=== PATIENT | male | born 1940 | race Caucasian/White ===

== ENCOUNTER 2016-12-11 13:14 | Inpatient (IN) | payer MEDICAID, OTHER ==
[~2016-12-11] VITALS: Ht 172.7 cm; Wt 106.1 kg
--- NOTE | 2016-12-11 13:32 | NUR ---
PT BIB PA FOR ALOC. PER EMS, PT USUALLY FIGHTS WITH STAFF AND PULLS AWAY WHEN ATTMETPING CARE; TODAY PT DID NOT FIGHT. UPON EXAM, LIMBS WERE FLACCID AND PT DID NOT RESPOND TO VERBAL OR TOUCH STIMULUS. RESP EVEN UNLABORED ON VENT. VSS. SKIN WARM NONDIAPHORETIC. GENERALIZED EDEMA. SUBCLAVIAN CATH PRESENT. IN ER BED 09 ON MONITOR.
--- NOTE | 2016-12-11 13:34 | NUR ---
RT AT BEDSIDE. WHILE PERFORMING ORAL SUCTIONING, PT RAISED HANDS TO BAT AWAY THE YANKAUR AND WAS TURNING HEAD AWAY.
[2016-12-11 13:41] VITALS: BP 120/57
--- NOTE | 2016-12-11 13:48 | NUR ---
PT RECEIVED AND PLACED INTO [facility] VENT VIA TRACH SIZE 8 PORTEX WITH CUFFED INFLATED. VENT PARAMETERS BELOW SET PER RT TRANSPORTER: AC10 VT 500 FIO2 40% PEEP +5 B/S COURSE RHONCHI BILATERAL, SXN MOD AMNT PALE YELLOW SEMI THICK SECRETIONS. GARRETT @ BEDSIDE. Addendum: 12/11/16 at 1352 by HENRY ESCOBAR RT Amended: Links added.
[2016-12-11] MEDS ORDERED: ONDA4TAB5 GT (13:54)
[2016-12-11] MEDS ORDERED: FLUD0.1T3 GT (13:54)
[2016-12-11] MEDS ORDERED: NUTR100037 GT (13:54)
[2016-12-11] MEDS ORDERED: FOLI1TAB16 GT (13:54)
[2016-12-11] MEDS ORDERED: LEVO100T9 GT (13:54)
[2016-12-11] MEDS ORDERED: BISA10SU8 RC (13:54)
[2016-12-11] MEDS ORDERED: INSU100I19 SQ (13:54)
[2016-12-11] MEDS ORDERED: OMEP40CA37 GT (13:54)
[2016-12-11] MEDS ORDERED: ERGO50003 GT (13:54)
[2016-12-11] MEDS ORDERED: MIDO10TA GT (13:54)
[2016-12-11] MEDS ORDERED: FOLI0.8T2 GT (13:54)
[2016-12-11] MEDS ORDERED: PRED20TA GT (13:54)
[2016-12-11] MEDS ORDERED: BLOO-668 IN (13:54)
[2016-12-11] MEDS ORDERED: BETA1TAB4 GT (13:54)
[2016-12-11] MEDS ORDERED: FERR300L GT (13:54)
[2016-12-11] MEDS ORDERED: ACET650S26 GT (13:54)
[2016-12-11] MEDS ORDERED: TRAM50TA2 GT (13:54)
[2016-12-11] MEDS ORDERED: INSU100V27 SQ (13:54)
[2016-12-11] MEDS ORDERED: DARB25DI SQ (13:54)
[2016-12-11] MEDS ORDERED: CYAN500T4 GT (13:54)
[2016-12-11] MEDS ORDERED: SIME80TA15 GT (13:54)
[2016-12-11] MEDS ORDERED: HEPA10009 SQ (13:54)
[2016-12-11 14:03] LABS: BASOPHILS # (AUTO) 0.1 /CMM (0.0-0.2); BASOPHILS % (AUTO) 0.6 % (0.0-2.0); EOSINOPHILS % (AUTO) 0.2 % (0.0-6.0); HEMATOCRIT 30 % (39-51); LYMPHOCYTES # (AUTO) 0.5 /CMM (0.8-4.8); LYMPHOCYTES % (AUTO) 3.2 % (20.0-44.0); MEAN CORPUSCULAR HEMOGLOBIN 36 PG (26.0-33.0); MEAN CORPUSCULAR HGB CONC 34 g/dl (31.0-36.0); MEAN CORPUSCULAR VOLUME 107 fL (80-96); MONOCYTES # (AUTO) 0.3 /CMM (0.1-1.30); MONOCYTES % (AUTO) 2.3 % (2.0-12.0); NEUTROPHILS # (AUTO) 13.9 /CMM (1.8-8.9); NEUTROPHILS % (AUTO) 93.7 % (43.0-81.0); PLATELET COUNT (AUTO) 228 /CMM (150-450); RDW COEFFICIENT OF VARIATION 13.6 (11.5-15.0); RED BLOOD CELL COUNT(AUTO) 2.75 MIL/uL (4.5-6.0); WHITE BLOOD COUNT (AUTO) 14.8 K/uL (4.3-11.0)
--- NOTE | 2016-12-11 14:03 | NUR ---
INCREASED FI02 FROM 30% TO 40% FOR LOW O2 SAT OF 89%. SAT WNL NOW.
--- NOTE | 2016-12-11 14:06 | NUR ---
PT TRANSPORTED TO CT IN STABLE CONDITION WITH RT AT BEDSIDE.
--- NOTE | 2016-12-11 14:20 | NUR ---
PT ANURIC; DIAPER DRY. NOTIFIED.
[2016-12-11 14:27] LABS: ALANINE AMINOTRANSFERASE 55 U/L (12-78); ALBUMIN 2.1 g/dL (3.4-5.0); ALKALINE PHOSPHATASE 298 U/L (46-116); ASPARTATE AMINOTRANSFERASE 32 U/L (15-37); BILIRUBIN,DIRECT 0.5 mg/dL (0.0-0.2); BILIRUBIN,TOTAL 0.7 mg/dL (0.2-1.0); CARBON DIOXIDE 32 mmol/L (21-32); CHLORIDE 98 mmol/L (98-107); CREATININE 3.3 mg/dL (0.6-1.3); GLUCOSE 207 mg/dL (74-106); SODIUM SERUM 136 mmol/L (136-145)
[2016-12-11 14:30] LABS: CALCIUM, SERUM 14.7 mg/dL (8.5-10.1); UREA NITROGEN, BLOOD 83 mg/dL (7-18)
[2016-12-11 14:31] LABS: INR 0.91 (0.87-1.13); PROTHROMBIN TIME 9.7 SECS (9.5-12.7)
--- NOTE | 2016-12-11 14:47 | NUR ---
PAGED DR LEOLA NOLASCO
[2016-12-11 14:50] LABS: LACTIC ACID 2.1 mmol/L (0.4-2.0)
[2016-12-11 14:59] VITALS: BP 105/64
[2016-12-11] MEDS ORDERED: CEFEPIME 1 GM in IV D5W 50 ML IV ONE (15:00)
[2016-12-11] MEDS ORDERED: VANCOMYCIN 1 GM in IV D5W 250 ML IV ONE (15:00)
[2016-12-11 15:12] LABS: BAND % (MANUAL) 47 % (0.0-5.0); LYMPHOCYTES % (MANUAL) 7 % (16-48); MONOCYTES % (MANUAL) 2 % (0-11.0); NEUTROPHILS % (MANUAL) 44 (42-76)
[2016-12-11] MEDS ORDERED: IV SET PRIMARY PUMP SET 1 EA INFUS.SET MC ONE (15:12)
--- NOTE | 2016-12-11 16:15 | NUR ---
REPORT GIVEN TO SPEEDY HARRELL FOR ADMISSION. ROOM IS STILL BEING CLEANED; 10-15 MORE MINUTES.
--- NOTE | 2016-12-11 16:29 | NUR ---
PT RESTING QUIETLY AT BASELINE, NAD NOTED. READY FOR TRANSFER TO 3RD FLOOR ONCE ROOM IS CLEAN.
--- NOTE | 2016-12-11 16:55 | NUR ---
PT TRANSPORTED TO RM 318 IN STABLE CONDITION VIA ACLS PROTOCOL WITH RT.
--- NOTE | 2016-12-11 17:15 | NUR ---
PT. TRANSFERRED FROM ER#9 TO 318. PT USED SAME MECH VENT WITH SAME VENTILATOR SETTINGS. MECH VENT PLUGGED INTO RED OUTTLET WITH ALARM ON AND AUDIBLE. GARRETT @ BEDSIDE. Addendum: 12/11/16 at 1717 by HENRY ESCOBAR RT Amended: Links added.
[2016-12-11 17:30] VITALS: BP 115/82
--- NOTE | 2016-12-11 17:30 | NUR ---
THREAT MONITORING ANALYST INITIAL NOTE REPORT RECEIVED. PATIENT IN ROOM. VENT SETTINGS CHECKED AND VERIFIED WITH RT. VITAL SIGNS CHECKED AND RECORDED. PATIENT DOES NOT APPEAR TO BE IN PAIN, CALM, NO FACIAL GRIMACE. WILL CHECK SKIN. WRITTEN ORDERS FROM [facility] AND MEDICATIONS FAXED TO PHARMACY. BED IN LOW POSITION, WILL CONTINUE TO MONITOR.
--- NOTE | 2016-12-11 18:20 | NUR ---
TELETYPE OPERATOR NOTE SCOTT FROM PHARMACY CONFIRMED THAT THE MEDICATION ORDERS FOR THE PATIENT WERE RECEIVED.
--- NOTE | 2016-12-11 19:25 | NUR ---
BOARD FINISHER CLOSING NOTE NO SIGNIFICANT CHANGE IN PATIENT CONDITION THROUGHOUT THE SHIFT. VENT SETTINGS VERIFIED. WILL ENDORSE FOR CHANTEL.
--- NOTE | 2016-12-11 19:46 | NUR ---
PT STARTED ON HEMODIALYSIS
[2016-12-11] MEDS ORDERED: FEE PK DOSING 1 MIN EA MC ONE (19:54)
[2016-12-11] MEDS ORDERED: ONDANSETRON 4 MG TAB.RAPDIS GT PRN (20:30)
[2016-12-11] MEDS ORDERED: SIMETHICONE 80 MG TAB.CHEW GT PRN (20:30)
[2016-12-11] MEDS ORDERED: BISACODYL SUPP (10 MG) 10 MG/SUPP.RECT SUPP.RECT RC PRN (20:30)
[2016-12-11] MEDS ORDERED: MIDODRINE HCL (5MG) 5 MG TABLET GT PRN (20:30)
[2016-12-11] MEDS ORDERED: ACETAMINOPHEN 650 MG/20.3 ML UDC GT PRN (20:30)
[2016-12-11] MEDS ORDERED: TRAMADOL HCL 50 MG TABLET GT PRN (20:30)
[2016-12-11 20:52] VITALS: BP_SYST 117; BP_SYST 131; BP_DIAS 74; BP_DIAS 90
[2016-12-11] MEDS: FERROUS SULFATE UDC 300 MG/5 ML UDC GT SCH (22:27)
[2016-12-11] MEDS: PANTOPRAZOLE 40 MG TABLET.DR PO SCH (22:27)
[2016-12-11] MEDS: PIPERACILLIN /TAZOBACTAM 2.25 G in IV D5W 50 ML IV SCH (22:27)
[2016-12-11] MEDS: HEPARIN SODIUM, PORCINE 5000 UNITS/1 ML VIAL SQ SCH (22:37)
[2016-12-11] MEDS: INSULIN DETEMIR 100 UNIT/ML CARTRIDGE SQ SCH (22:37)
[2016-12-11] MEDS ORDERED: SECONDARY IV SET 1 EA INFUS.SET MC ONE (22:52)
[2016-12-11] MEDS ORDERED: IV NS 0.9% 250 ML IV ONE (22:52)
[2016-12-11] MEDS: RENAL NOVASOURCE 1,000 ML BOTTLE GT PRN (23:25)
[2016-12-11] MEDS: Z GUARD REMEDY 2 OZ OINT TP PRN (23:25)
[2016-12-12] VITALS (7 sets, daily range): BP systolic 105–129; BP diastolic 64–76
[2016-12-12] MEDS: INSULIN ASPART NOVOLOG 100 UNIT/ML CARTRIDGE SQ PRN ×4 (01:28→17:52)
[2016-12-12] MEDS: PIPERACILLIN /TAZOBACTAM 2.25 G in IV D5W 50 ML IV SCH ×2 (06:16→12:21)
[2016-12-12] MEDS: FERROUS SULFATE UDC 300 MG/5 ML UDC GT SCH ×3 (06:18→22:15)
[2016-12-12] MEDS: LEVOTHYROXINE SODIUM 100 MCG TABLET GT SCH (06:18)
[2016-12-12] MEDS: BLOOD SUGAR DIAGNOSTIC 1 EACH STRIP IN SCH ×4 (06:29→17:53)
--- NOTE | 2016-12-12 06:58 | NUR ---
pt had hemodialysis last night took 1.7 liters off, pt non verbal, on trache on vent,opens eyes only.generalized edema to all extremeties, anuric and no bm overnight,reposition for comfort, 94-98% suctioned frequently, phlegm very thick and yellowgreen,suctioned orally too, pt able to move both arms when suctioning.otherwise generally weak. on gt feeding tolerating well with no residual, on iv antibiotics.vss,afebrile ,kept clean and dry.sinus with 1st degree block on monitor.
--- NOTE | 2016-12-12 07:30 | NUR ---
BACK STRIP MACHINE OPERATOR NOTE RECEIVED PATIENT ON BED NON VERBAL, HE OPEN HIS EYES ONLY AND TO PAINFUL STIMULI. ON VENT, TRACH IN PLACED. VITAL SIGNS CHECKED AND RECORDED. PATIENT DOES NOT APPEAR TO BE IN PAIN, CALM, NO FACIAL GRIMACE. NO S/S OF ANY RESPIRATORY DISTRESS AT THIS TIME. CALL LIGHT WITHIN REACH, WILL CONTINUE TO MONITOR.
[2016-12-12 07:59] LABS: BASOPHILS % (AUTO) 0.1 % (0.0-2.0); EOSINOPHILS % (AUTO) 0.2 % (0.0-6.0); HEMATOCRIT 26 % (39-51); HEMOGLOBIN 8.9 g/dL (13.5-17.5); LYMPHOCYTES # (AUTO) 0.6 /CMM (0.8-4.8); LYMPHOCYTES % (AUTO) 4.6 % (20.0-44.0); MEAN CORPUSCULAR HEMOGLOBIN 36 PG (26.0-33.0); MEAN CORPUSCULAR HGB CONC 34 g/dl (31.0-36.0); MEAN CORPUSCULAR VOLUME 107 fL (80-96); MONOCYTES # (AUTO) 0.4 /CMM (0.1-1.30); MONOCYTES % (AUTO) 3.2 % (2.0-12.0); NEUTROPHILS % (AUTO) 91.9 % (43.0-81.0); PLATELET COUNT (AUTO) 229 /CMM (150-450); RDW COEFFICIENT OF VARIATION 14.9 (11.5-15.0); RED BLOOD CELL COUNT(AUTO) 2.46 MIL/uL (4.5-6.0)
[2016-12-12 08:09] LABS: CREATININE 2.8 mg/dL (0.6-1.3); POTASSIUM 4.3 mmol/L (3.5-5.1)
[2016-12-12] MEDS: VIT B CMPLX 3/FA/VIT C/BIOTIN 1 TAB TABLET GT SCH (08:44)
[2016-12-12] MEDS: CYANOCOBALAMIN 500 MCG TABLET GT SCH (08:44)
[2016-12-12] MEDS: FOLIC ACID 1 MG TABLET GT SCH (08:44)
[2016-12-12] MEDS: FLUDROCORTISONE 0.1 MG TABLET GT SCH (08:44)
[2016-12-12] MEDS: PANTOPRAZOLE 40 MG TABLET.DR PO SCH ×2 (08:44→21:00)
[2016-12-12] MEDS: predniSONE 20 MG TABLET GT SCH (08:44)
[2016-12-12] MEDS: MULTIVITAMINS W-MINERALS 1 TAB TABLET GT SCH (08:44)
--- NOTE | 2016-12-12 08:45 | NUR ---
BEHAVIORAL SCIENCE CHAIR NOTES PATIENT STARTED ON HD AT BEDSIDE. VS BP 104/60, IL 88, RR, 22. BLACKTOP SPREADER AT BEDSIDE. WILL CONTINUE TO MONITOR.
[2016-12-12] MEDS: HEPARIN SODIUM, PORCINE 5000 UNITS/1 ML VIAL SQ SCH ×2 (08:49→22:16)
[2016-12-12] MEDS: INSULIN DETEMIR 100 UNIT/ML CARTRIDGE SQ SCH ×2 (08:58→22:18)
[2016-12-12] MEDS ORDERED: ERGOCALCIFEROL (VITAMIN D 2) 50,000 UNIT CAPSULE GT SCH (09:00)
[2016-12-12 09:38] LABS: ANISOCYTOSIS 1+; BAND % (MANUAL) 7 % (0.0-5.0); LYMPHOCYTES % (MANUAL) 6 % (16-48); METAMYELOCYTES % 2 % (0-0); MONOCYTES % (MANUAL) 3 % (0-11.0); NEUTROPHILS % (MANUAL) 82 (42-76); PLATELET ESTIMATE ADEQUATE
--- NOTE | 2016-12-12 11:30 | NUR ---
RN CAMP NOTES HEMODIALYSIS FINISHED VS BP 99/62, ID 96, RR 23, TEMP 98. OUTPUT 1.8L.
[2016-12-12] MEDS ORDERED: IPRATROPIUM NEB FS 0.5 MG/2.5 ML AMPUL.NEB NEB PRN (12:00)
[2016-12-12] MEDS ORDERED: ALBUTEROL FS 2.5 MG/3 ML VIAL.NEB NEB PRN (13:30)
[2016-12-12] MEDS ORDERED: ALBUTEROL FS 2.5 MG/3 ML VIAL.NEB NEB SCH (13:30)
[2016-12-12 14:25] LABS: ABG BASE EXCESS 2.1 mmol/L; ABG OXYGEN SATURATION 91.8 % (92.0-98.5); ABG PH 7.454 (7.350-7.450); ABG PO2 64.3 mmHg (75.0-100.0); ABG TOTAL HEMOGLOBIN 9.7 G/dL (13.5-18.0); AaDO2 177.2 mmHg; COHb 1.1 % (0.5-1.5); MetHb 0.8 % (0.0-1.5); O2Hb 90.1 % (94.0-97.0); PEEP,BG 5 cm H2O; SITE, ABG Right Brachial; VT, ABG 500 mL
[2016-12-12] MEDS ORDERED: FEE PK DOSING 1 MIN EA MC ONE (16:00)
[2016-12-12] MEDS ORDERED: Medication Not On Formulary EA (Omeprazole 40 MG) GT SCH (16:30)
[2016-12-12] MEDS: Z GUARD REMEDY 2 OZ OINT TP PRN (17:53)
[2016-12-12] MEDS ORDERED: DOSING PER PHARMACY-AMIKACI IV XX PRN (18:00)
--- NOTE | 2016-12-12 18:00 | NUR ---
ALARM ADJUSTER NOTES S/B ID OIL WELL DRILLING MANAGER NERA WITH NEW ORDERS MADE AND CARRIED OUT.
[2016-12-12] MEDS: RENAL NOVASOURCE 1,000 ML BOTTLE GT PRN (18:08)
[2016-12-12] MEDS ORDERED: AMIKACIN 400 MG in IV D5W 100 ML IV ONE (18:30)
--- NOTE | 2016-12-12 19:35 | NUR ---
METAL SPRAYER MACHINED PARTS NOTES TURN AND REPOSITIONING Q2H AND NEEDED. PATIENT REMAINS THE SAME, STABLE THE WHOLE SHIFT. ENDORSED TO INCOMING SHIFT FOR CONTINUITY OF CARE.
--- NOTE | 2016-12-12 19:35 | NUR ---
TELE/RN NOTES RECEIVED PT. LYING IN BED RESTING. PT. IS NON-VERBAL. OPENS EYES TO PAINFUL STIMULI. PT. IS VENT/TRACH DEPENDENT. PT. WITH PORTEX #8 TRACH PRESENT AND INTACT. CURRENT VENT SETTINGS = TV 500, FIO2 40%, PEEP 5, AC 10. BREATHING EVEN AND UNLABORED. NO SOB, RESPIRATORY DISTRESS OR S/S OF PAIN NOTED AT THIS TIME. PT. WITH EXTERNAL QUALITY TECHNICIAN PRESENT AND INTACT. CURRENT RHYTHM = SINUS RHYTHM HR 92. PT. WITH RIGHT WRIST 20 GAUGE SALINE LOCK PRESENT, PATENT AND INTACT. PER DAYSHIFT NURSE PT. MYCOSTATIN CREAM AND AMIKIN MEDICATIONS NOT ADMINISTERED BECAUSE MEDICATIONS NOT AVAILABLE AT THIS TIME. DAYSHIFT RN CALLED AND NOTIFIED PHARMACY. WILL ADMINISTER MEDICATIONS WHEN THEY ARE AVAILABLE. BED IN LOWEST POSITION, CALL LIGHT WITHIN REACH, WILL CONTINUE TO MONITOR.
[2016-12-12] MEDS ORDERED: AMIKACIN 250 MG/ML VIAL ONE (20:38)
[2016-12-12] MEDS ORDERED: IV D5W 100 ML IV ONE (20:53)
[2016-12-12] MEDS: NYSTATIN CREAM 15 GM TUBE TP SCH (20:58)
[2016-12-12] MEDS ORDERED: SECONDARY IV SET 1 EA INFUS.SET MC ONE (21:01)
--- NOTE | 2016-12-12 21:35 | NUR ---
TELE/RN NOTES DID NOT ADMINISTER TO PT. PROTONIX MEDICATION ORDERED BECAUSE PT. IS NPO AND MEDICATION CANNOT BE CRUSHED. WILL CONTINUE TO MONITOR.
[2016-12-13] VITALS (7 sets, daily range): BP systolic 106–139; BP diastolic 65–81
[2016-12-13] MEDS: BLOOD SUGAR DIAGNOSTIC 1 EACH STRIP IN SCH ×4 (00:05→17:13)
[2016-12-13] MEDS: INSULIN ASPART NOVOLOG 100 UNIT/ML CARTRIDGE SQ PRN ×4 (00:07→17:19)
[2016-12-13] MEDS: FERROUS SULFATE UDC 300 MG/5 ML UDC GT SCH ×3 (05:49→22:26)
[2016-12-13] MEDS: LEVOTHYROXINE SODIUM 100 MCG TABLET GT SCH (06:25)
--- NOTE | 2016-12-13 06:35 | NUR ---
TELE/RN NOTES PT. LYING IN BED RESTING. PT. IS VENT/TRACH DEPENDENT. BREATHING EVEN AND UNLABORED. NO SOB, RESPIRATORY DISTRESS OR S/S OF PAIN NOTED AT THIS TIME. PT. WITH EXTERNAL COLORECTAL SURGEON PRESENT AND INTACT. CURRENT RHYTHM = SINUS RHYTHM WITH 1ST DEGREE AV BLOCK HR 87. PT. WITH RIGHT WRIST 20 GAUGE SALINE LOCK PRESENT, PATENT AND INTACT. ALL PT. NEEDS MET. PT. OFFLOADED, TURNED AND REPOSITIONED Q2H AND NEEDED. BED IN LOWEST POSITION, CALL LIGHT WITHIN REACH, WILL ENDORSE TO DAYSHIFT NURSE FOR CONTINUITY OF CARE.
[2016-12-13 07:10] LABS: EOSINOPHILS % (AUTO) 0.3 % (0.0-6.0); HEMATOCRIT 29 % (39-51); HEMOGLOBIN 9.5 g/dL (13.5-17.5); LYMPHOCYTES # (AUTO) 0.6 /CMM (0.8-4.8); LYMPHOCYTES % (AUTO) 5.1 % (20.0-44.0); MEAN CORPUSCULAR HEMOGLOBIN 36 PG (26.0-33.0); MEAN CORPUSCULAR HGB CONC 33 g/dl (31.0-36.0); MEAN CORPUSCULAR VOLUME 108 fL (80-96); MONOCYTES # (AUTO) 0.1 /CMM (0.1-1.30); MONOCYTES % (AUTO) 0.9 % (2.0-12.0); NEUTROPHILS # (AUTO) 11.8 /CMM (1.8-8.9); NEUTROPHILS % (AUTO) 93.7 % (43.0-81.0); PLATELET COUNT (AUTO) 206 /CMM (150-450); RDW COEFFICIENT OF VARIATION 15.1 (11.5-15.0); RED BLOOD CELL COUNT(AUTO) 2.65 MIL/uL (4.5-6.0); WHITE BLOOD COUNT (AUTO) 12.6 K/uL (4.3-11.0)
--- NOTE | 2016-12-13 07:10 | NUR ---
MARKETING ASSISTANT MANAGER NOTES PATIENT IN BED, NON-VERBAL, RESPONSIVE TO TACTILE STIMULI, GTF ONGOING AND TOLERATING WELL, HOB ELEVATED AT ALL TIMES, NO S/SX OF PAIN OR DISTRESS AT THIS TIME, TURN AND REPOSITION Q2H, SAFETY MEASURES IN PLACED, CALL LIGHT WITHIN REACH, WILL CONTINUE TO MONITOR.
[2016-12-13 07:29] LABS: CREATININE 2.7 mg/dL (0.6-1.3); MAGNESIUM 2.3 mg/dL (1.8-2.4); POTASSIUM 3.9 mmol/L (3.5-5.1)
[2016-12-13 07:48] LABS: CALCIUM, SERUM 12.5 mg/dL (8.5-10.1)
[2016-12-13 08:02] LABS: PHOSPHORUS 0.9 mg/dL (2.5-4.9)
[2016-12-13] MEDS: MULTIVITAMINS W-MINERALS 1 TAB TABLET GT SCH (09:09)
[2016-12-13] MEDS: predniSONE 20 MG TABLET GT SCH (09:09)
[2016-12-13] MEDS: FLUDROCORTISONE 0.1 MG TABLET GT SCH (09:09)
[2016-12-13] MEDS: VIT B CMPLX 3/FA/VIT C/BIOTIN 1 TAB TABLET GT SCH (09:09)
[2016-12-13] MEDS: FOLIC ACID 1 MG TABLET GT SCH (09:09)
[2016-12-13] MEDS: PANTOPRAZOLE 40 MG TABLET.DR PO SCH ×2 (09:09→22:27)
[2016-12-13] MEDS: CYANOCOBALAMIN 500 MCG TABLET GT SCH (09:09)
[2016-12-13] MEDS: HEPARIN SODIUM, PORCINE 5000 UNITS/1 ML VIAL SQ SCH ×2 (09:11→22:37)
[2016-12-13] MEDS: NYSTATIN CREAM 15 GM TUBE TP SCH ×2 (09:12→17:11)
[2016-12-13] MEDS: INSULIN DETEMIR 100 UNIT/ML CARTRIDGE SQ SCH ×2 (09:14→22:38)
--- NOTE | 2016-12-13 10:00 | NUR ---
SHAKER WASHER NOTES INFORMED DR. MAITE DICKSON RE: PHOS RESULT OF 0.9.
[2016-12-13] MEDS ORDERED: Sodium Phosphate 7.5 MMOL in IV D5W 100 ML IV ONE (11:00)
[2016-12-13] MEDS ORDERED: SECONDARY IV SET 1 EA INFUS.SET MC ONE ×2 (11:24→14:28)
[2016-12-13] MEDS ORDERED: VANCOMYCIN 1 GM in IV D5W 250 ML IV SCH (14:00)
[2016-12-13] MEDS: LACTOBACILLUS RHAMNOSUS GG 1 EACH CAP.SPRINK GT SCH (17:11)
[2016-12-13] MEDS: RENAL NOVASOURCE 1,000 ML BOTTLE GT PRN (17:21)
--- NOTE | 2016-12-13 18:25 | NUR ---
PLATE MILL MILL HAND NOTES PATIENT IN BED, RESPONSIVE TO STIMULI, OPENS EYES HALF WAY, VENT SETTINGS TOLERATING WELL, SUCTIONED NEEDED, NO S/SX OF DISTRESS, ALL NEEDS ATTENDED AND MET, TURNED AND REPOSITIONED Q2H SCHEDULED, Z- GUARD APPLIED, TREATMENT APPLIED TO RIGHT BACK RASH, PIV ON SALINE LOCK, CXR RESULT STILL PENDING, HEAD OF BED ELEVATED, CALL LIGHT WITHIN REACH, WILL ENDORSE TO THIRD LOADER FOR CHANTEL.
--- NOTE | 2016-12-13 19:30 | NUR ---
RN OPENING NOTES RECEIVED REPORT FROM LINDA RN. FOUND Pt ASLEEP IN BED. NO S/S OF ACUTE DISTRESS OR SOB NOTED. EQUAL CHEST RISE AND FALL. Pt IS NON-VERBAL BUT CAN OPEN EYES IN RESPONSE TO NAME. PT ON VENT; PORTEX #8, AC 10, TV 500, FIO2 40%, PEEP 5. TELE READING SR 80's. GT FEED NOVASOURCE @60ML/HR. IV ACCESS ON R WRIST #20G, SL. RCW PERMACATH FOR HD. SAFETY MEASURES IN PLACE. BED LOW, LOCKED, HOB ELEVATED, SIDE RAILS UP, CALL LIGHT WITHIN REACH. WILL CONTINUE TO MONITOR Pt THROUGHOUT THE NIGHT FOR SAFETY.
[2016-12-14] VITALS (7 sets, daily range): BP systolic 103–143; BP diastolic 59–87
[2016-12-14] MEDS: BLOOD SUGAR DIAGNOSTIC 1 EACH STRIP IN SCH ×3 (00:54→11:57)
[2016-12-14] MEDS: INSULIN ASPART NOVOLOG 100 UNIT/ML CARTRIDGE SQ PRN ×2 (01:02→06:27)
[2016-12-14] MEDS: FERROUS SULFATE UDC 300 MG/5 ML UDC GT SCH ×3 (06:11→21:28)
[2016-12-14] MEDS: LEVOTHYROXINE SODIUM 100 MCG TABLET GT SCH (06:11)
--- NOTE | 2016-12-14 06:30 | NUR ---
ACCUCHECK 280. ADMINISTERED 4UN OF NOVOLOG INSULIN PRN PER MD ORDER. ON CONTINUOUS GT FEEDING @60ML/HR.
--- NOTE | 2016-12-14 06:51 | NUR ---
RN CLOSING NOTES NO SIGNIFICANT CHANGES NOTED DURING THE SHIFT. NO S/S OF ACUTE DISTRESS OR SOB NOTED. ALL NEEDS MET AND ATTENDED TO. SAFETY MEASURES IN PLACE. TELE READING SR 91 WITH PVC'S. WILL ENDORSE TO DAYSHIFT RN FOR Pt's CHANTEL & SAFETY.
[2016-12-14 06:55] LABS: EOSINOPHILS # (AUTO) 0.1 /CMM (0.0-0.7); EOSINOPHILS % (AUTO) 0.8 % (0.0-6.0); HEMATOCRIT 27 % (39-51); LYMPHOCYTES % (AUTO) 6.9 % (20.0-44.0); MEAN CORPUSCULAR HEMOGLOBIN 36 PG (26.0-33.0); MEAN CORPUSCULAR HGB CONC 33 g/dl (31.0-36.0); MEAN CORPUSCULAR VOLUME 107 fL (80-96); MONOCYTES # (AUTO) 0.1 /CMM (0.1-1.30); MONOCYTES % (AUTO) 0.8 % (2.0-12.0); NEUTROPHILS % (AUTO) 91.5 % (43.0-81.0); PLATELET COUNT (AUTO) 216 /CMM (150-450); RDW COEFFICIENT OF VARIATION 15.2 (11.5-15.0); RED BLOOD CELL COUNT(AUTO) 2.53 MIL/uL (4.5-6.0); WHITE BLOOD COUNT (AUTO) 14.2 K/uL (4.3-11.0)
[2016-12-14 07:31] LABS: CREATININE 3.5 mg/dL (0.6-1.3); MAGNESIUM 2.3 mg/dL (1.8-2.4); PHOSPHORUS 2.2 mg/dL (2.5-4.9); POTASSIUM 4.4 mmol/L (3.5-5.1)
[2016-12-14 07:32] LABS: CALCIUM, SERUM 13.9 mg/dL (8.5-10.1)
--- NOTE | 2016-12-14 07:48 | NUR ---
HUMAN RESOURCES TEAM MEMBER OPENING NOTE PATIENT IS ASLEEP IN BED LOCKED IN LOWEST POSITION WITH SIDERAILS UP x2. NON-VERBAL, BUT ABLE TO NOD TO SIMPLE COMMANDS. SAFETY MEASURES IMPLEMENTED. CALL LIGHT WITHIN REACH. IV INTACT AND PATENT NO REDNESS OR SWELLING NOTED. PATIENT IS ON VENT. PATIENT TO HAVE CHEST X-RAY DONE TODAY AND POSSIBLE HEMODIALYSIS. WILL CONTINUE TO MONITOR
--- NOTE | 2016-12-14 08:22 | NUR ---
WOUND CARE CONSULT: PATIENT SEEN AND SKIN ASSESSMENT DONE. TRACH VENT DEPENDENT PATIENT, IMMOBILE, HAS GT ON FEEDING, INCONTINENT, JAMARCUS 12, SAMEER ISOFLEX SANJU BED IN USE. SEE TODAY'S SKIN ASSESSMENT IN PCS ALONG WITH RECOMMENDATIONS DISCUSSED WITH NURSING STAFF INCLUDING MOISTURE PROTECTION AND PRESSURE PREVENTION MEASURES ORDERED. MD IN AGREEMENT WITH PLAN OF CARE. Addendum: 12/14/16 at 0824 by BETO SEYMOUR WNDNU Amended: Links added.
[2016-12-14] MEDS: PANTOPRAZOLE 40 MG TABLET.DR PO SCH (08:48)
[2016-12-14] MEDS: MULTIVITAMINS W-MINERALS 1 TAB TABLET GT SCH (08:48)
[2016-12-14] MEDS: FOLIC ACID 1 MG TABLET GT SCH (08:48)
[2016-12-14] MEDS: predniSONE 20 MG TABLET GT SCH (08:48)
[2016-12-14] MEDS: VIT B CMPLX 3/FA/VIT C/BIOTIN 1 TAB TABLET GT SCH (08:48)
[2016-12-14] MEDS: FLUDROCORTISONE 0.1 MG TABLET GT SCH (08:48)
[2016-12-14] MEDS: CYANOCOBALAMIN 500 MCG TABLET GT SCH (08:48)
[2016-12-14] MEDS: LACTOBACILLUS RHAMNOSUS GG 1 EACH CAP.SPRINK GT SCH ×2 (08:49→16:23)
[2016-12-14] MEDS: Z GUARD REMEDY 2 OZ OINT TP SCH ×2 (08:49→16:23)
[2016-12-14] MEDS: NYSTATIN CREAM 15 GM TUBE TP SCH ×2 (08:54→16:23)
[2016-12-14] MEDS: INSULIN DETEMIR 100 UNIT/ML CARTRIDGE SQ SCH ×2 (09:16→21:34)
[2016-12-14] MEDS: HEPARIN SODIUM, PORCINE 5000 UNITS/1 ML VIAL SQ SCH ×2 (09:27→21:31)
[2016-12-14 10:46] LABS: BAND % (MANUAL) 3 % (0.0-5.0); EOSINOPHILS % (MANUAL) 1 % (0-4); METAMYELOCYTES % 3 % (0-0); MONOCYTES % (MANUAL) 1 % (0-11.0); MYELOCYTES % 1 % (0-0); NEUTROPHILS % (MANUAL) 79 (42-76)
[2016-12-14 10:47] LABS: LYMPHOCYTES % (MANUAL) 12 % (16-48)
[2016-12-14 10:49] LABS: ANISOCYTOSIS 1+; PLATELET ESTIMATE ADEQUATE
[2016-12-14] MEDS ORDERED: DEXTROSE 50%-WATER 50 ML DISP.SYRIN IV PRN ×2 (11:30→13:00)
[2016-12-14] MEDS ORDERED: *INSULIN REGULAR(HUMULIN R)HUM 100 UNIT/ML VIAL SQ PRN (11:30)
[2016-12-14] MEDS ORDERED: INSULIN REGULAR, HUMAN 100 UNIT/ML 3 ML VIAL SQ PRN (11:30)
[2016-12-14] MEDS: RENAL NOVASOURCE 1,000 ML BOTTLE GT PRN (11:56)
[2016-12-14] MEDS ORDERED: BLOOD SUGAR DIAGNOSTIC 1 EACH STRIP VI SCH (12:00)
[2016-12-14] MEDS: INSULIN REGULAR, HUMAN 100 UNIT/ML 3 ML VIAL SQ PRN (16:31)
[2016-12-14] MEDS: BLOOD SUGAR DIAGNOSTIC 1 EACH STRIP VI SCH ×2 (16:48→21:26)
--- NOTE | 2016-12-14 18:32 | NUR ---
PATENT LAW SPECIALIST CLOSING NOTE PATIENT IS NON-VERBAL, OPEN EYES AND NODS HEAD. NO PAIN AT THIS TIME. NO FACIAL GRIMACING NOTICED. NO SOB OR DISTRESS NOTED. PATIENT IS ON VENT MACHINE. IV INTACT AND PATENT NO REDNESS OR SWELLING NOTED. G-TUBE PATENT, NO COMPLICATIONS, NO REDNESS AROUND SITE. PATIENT ON TUBE FEEDING, TOLERATING WELL. G-TUBE FLUSHED. PATIENT HAD HEMODIALYSIS TODAY, TOLERATED WELL. WILL ENDORSE TO GRIP WRAPPER NURSE
--- NOTE | 2016-12-14 19:30 | NUR ---
MS RN OPENING NOTES: PATIENT IN BED, NON VERBAL, BUT OPENS EYES TO NAME BEING CALLED. ON [facility] VENTILATION WITH THE FF SETTINGS: AC: 10, TV: 500, FI02: 40%, PEEP : 5; WITH TRACHE TUBE PORTEX 8. PATIENT NOTED TO HAVE THICK WHITISH SECRETIONS FROM THE MOUTH, SUCTIONED PRN. PATIENT COOPERATIVE WITH SUCTIONING. ON TELE MONITORING WITH SINUS RHYTHM 90S, WITH PVCS. APPEARS CALM AND IN NO DISTRESS. AUSCULTATED RHONCHI OVER UPPER LUNG MORAN. PATIENT HAS R WRIST G 20 INTACT AND PATENT TO FLUSH. CHRISTIANO HAS PERMACATH AT [facility], WITH CLEAN AND INTACT DRESSING. PATIENT IS ON TUBE FEEDING OF NOVASOURCE RUNNING AT 60 ML/HR CONTINUOUS, NO RESIDUAL NOTED AT THIS TIME. PROVIDED FOR COMFORT AND SAFETY. BED IN LOWEST AND LOCKED POSITION, SIDE RAILS UP X 3. BED ALARMS ON. WILL CONT TO MONITOR.
[2016-12-14] MEDS ORDERED: IV NS 0.9% 250 ML IV ONE (20:25)
[2016-12-14] MEDS: PANTOPRAZOLE 40 MG/PACK PACK GT SCH (21:29)
[2016-12-14] MEDS: *INSULIN REGULAR(HUMULIN R)HUM 100 UNIT/ML VIAL SQ PRN (21:36)
--- NOTE | 2016-12-14 22:37 | NUR ---
RN NOTES: PATIENT WAS NOTED TO HAVE ON TELE MONITOR SINUS RATE OF 90S WITH PVCS OCCURRING. RECHECKED BP AT 142/64. PATIENT ASLEEP BUT ABLE TO BE AWAKENED, AND RESPONDED BY NODDING HEAD WHEN ASKED IF HE IS OK. WILL CONT TO MONITOR.
[2016-12-15] VITALS (10 sets, daily range): BP systolic 98–143; BP diastolic 40–87
--- NOTE | 2016-12-15 02:50 | NUR ---
RN NOTES: PATIENT APPEARS CALM AND IN NO DISTRESS, SUCTIONING OF MOUTH AND TRACH DONE. NOTED MODERATE AMT OF THICK WHITISH ORAL AND TRACHEAL SECRETIONS. WILL CONT TO MONITOR.
[2016-12-15] MEDS: FERROUS SULFATE UDC 300 MG/5 ML UDC GT SCH ×3 (04:41→20:14)
[2016-12-15] MEDS: RENAL NOVASOURCE 1,000 ML BOTTLE GT PRN ×2 (04:41→20:14)
[2016-12-15] MEDS: LEVOTHYROXINE SODIUM 100 MCG TABLET GT SCH (06:33)
[2016-12-15] MEDS: BLOOD SUGAR DIAGNOSTIC 1 EACH STRIP VI SCH ×4 (06:33→22:00)
[2016-12-15] MEDS: INSULIN REGULAR, HUMAN 100 UNIT/ML 3 ML VIAL SQ PRN ×3 (06:37→16:36)
--- NOTE | 2016-12-15 06:43 | NUR ---
TRANSFER PUMPER CLOSING NOTES: PATIENT IN BED, NON VERBAL, BUT OPENS EYES WHEN NAME IS CALLED. APPEARS CALM AND IN NO DISTRESS. ALSO ABLE TO RESPOND BY NODDING AND SHAKING HEAD. CONTINUES TO BE ON MECHANICAL VENTILATION, RHONCHI HEARD OVER LUNG MORAN. PATIENT'S MOUTH WAS SUCTIONED FREQUENTLY, NOTED TO HAVE MODERATE TO COPIOUS AMT OF THICK WHITISH SECRETIONS. ALSO SUCTIONED THE TRACHE PRN. ON TELE MONITORING, WITH SINUS RHYTHM AT 90S, WITH OCCASIONAL PVCS. MORNING CARE RENDERED. PROVIDED FOR COMFORT AND SAFETY. TURNED AND REPOSITIONED. NO ACUTE CHANGE IN CONDITION NOTED THROUGH SHIFT. WILL ENDORSE TO AM RN FOR CHANTEL.
[2016-12-15 07:14] LABS: CREATININE 3.1 mg/dL (0.6-1.3); POTASSIUM 4.3 mmol/L (3.5-5.1)
[2016-12-15 07:35] LABS: CALCIUM, SERUM 13.3 mg/dL (8.5-10.1)
--- NOTE | 2016-12-15 08:00 | NUR ---
MEDICAL CLERK PT IN BED OPEN EYES DOES NOT FOLLOW OR TRACK, PT HAS TRACH ON VENT AC MODE SETTINGS NOTED O2 SAT 97% LUNG SOUNDS COARSE, SR ON TELE HR 90S WITH PVC BIGEMINIES AND TRIGEMINIES, VS STABLE BP LOW 100S, GENERALIZED EDEMA W/ PITTING EDEMA ON ALL EXTREMITIES AND DECOLORIZATION ALL OVER EXTREMITIES WITH BACK RASHES, GT PRESENT INFUSING FEEDING NO RESIDUAL NOTED, ABD SOFT ACTIVE BOWL SOUNDS, IV ACCESS PATENT TKO, TURN AND REPOSITION PT IN BED CALL LIGHT W/ IN REACH WILL CONTINUE TO MONITOR. VANCO AND AMIKACIN NOT GIVEN 12/14/2016 PHU PHARMACIST AWARE WILL GIVE MEDS AFTER TODAY DIALYSIS
[2016-12-15] MEDS: FOLIC ACID 1 MG TABLET GT SCH (09:43)
[2016-12-15] MEDS: MULTIVITAMINS W-MINERALS 1 TAB TABLET GT SCH (09:43)
[2016-12-15] MEDS: PANTOPRAZOLE 40 MG/PACK PACK GT SCH ×2 (09:43→20:14)
[2016-12-15] MEDS: predniSONE 20 MG TABLET GT SCH (09:43)
[2016-12-15] MEDS: VIT B CMPLX 3/FA/VIT C/BIOTIN 1 TAB TABLET GT SCH (09:43)
[2016-12-15] MEDS: LACTOBACILLUS RHAMNOSUS GG 1 EACH CAP.SPRINK GT SCH ×2 (09:43→16:31)
[2016-12-15] MEDS: CYANOCOBALAMIN 500 MCG TABLET GT SCH (09:43)
[2016-12-15] MEDS: FLUDROCORTISONE 0.1 MG TABLET GT SCH (09:43)
[2016-12-15] MEDS: NYSTATIN CREAM 15 GM TUBE TP SCH ×2 (09:44→16:31)
[2016-12-15] MEDS: Z GUARD REMEDY 2 OZ OINT TP SCH ×2 (09:44→16:32)
[2016-12-15] MEDS: HEPARIN SODIUM, PORCINE 5000 UNITS/1 ML VIAL SQ SCH ×2 (09:47→22:16)
[2016-12-15] MEDS: INSULIN DETEMIR 100 UNIT/ML CARTRIDGE SQ SCH ×2 (09:51→22:17)
--- NOTE | 2016-12-15 10:00 | NUR ---
CATTLE ALLEY WORKER PT IN BED STABLE VS STABLE HD STARTED BY SOFI HARRELL.
--- NOTE | 2016-12-15 11:42 | NUR ---
SUPERVISOR IN CHARGE PT IN BED SBP DROPPED TO 80S HD NURSE GAVE 1000ML BOLUS VS STABLE 105/43 NOW PT ABLE TO MOVE HEAD SIDE TO SIDE HD STOPPED AND 0 FLUID REMOVED WITH 0 NET GAIN. WILL GIVE POST HD AMIKASYN AND VANCO
[2016-12-15] MEDS: AMIKACIN 400 MG in IV D5W 100 ML IV PRN (11:48)
[2016-12-15] MEDS ORDERED: ALBUMIN 25% 12.5 GM in PREMIX 1 EA IV ONE (13:00)
[2016-12-15] MEDS: VANCOMYCIN 500 MG in IV D5W 100 ML IV PRN (13:02)
[2016-12-15] MEDS ORDERED: ALBUMIN 25% 12.5 GM/50 ML BOTTLE IV ONE (13:30)
[2016-12-15] MEDS ORDERED: SECONDARY IV SET 1 EA INFUS.SET MC ONE (14:13)
[2016-12-15] MEDS: CINACALCET HCL 30 MG TABLET GT SCH (14:17)
[2016-12-15] MEDS ORDERED: ACETYLCYSTEINE 10% SOLN 400 MG/4 ML VIAL NEB SCH (15:30)
--- NOTE | 2016-12-15 18:11 | NUR ---
forester silviculture pt in bed all pt needs meet no distress noted no changes in pt condition bp still low 90s map >65, bed bath given no bm pt tolerated well kirsten care with zgard provided will continue to monitor and give report to pm nurse.
--- NOTE | 2016-12-15 19:30 | NUR ---
PRESS WASHER INITIAL NOTES: RECEIVED REPORT FROM PEDRO RN. PT ON BED, OBTUNDED, OPEN YES, TRACHE MECH VENT DEPENDENT WITH THE FF SETTING: AC 10, TV 500 FIO2 40% PEEP 5, PORTEX 8, CONTINUOUS PULSE OX SHOWING 98-100% OXYGEN SATURATION. S/P HD BUT NO OUTPUT, JUST EXCHANGE PT DIDNT TOLERATE IT. PT IS ANURIC. PT APPEARS CALM AND COMFORTABLE, NO FACIAL GRIMACE NOTED. PT HAS GTUBE FEEDING, ABDOMEN SOFT TO TOUCH, WITH HYPOACTIVE BOWEL SOUND NOTED UPON AUSCULTATION. PT RECEIVING NOVASOURCE RENAL AT 60ML/HR. NOTED GENERALIZED EDEMA, BLE OFFLOADED. PT ON ISOFLEX MATTRESS. PT ON SINUS RHYTHM WITH PAC AND PVC AND OCCASIONAL TRIGEMINAL HR 78. SAFETY PRECAUTIONS FOR FALL INITIATED CALL LIGHT IN REACH, WILL CONTINUE TO MONITOR
--- NOTE | 2016-12-15 20:14 | NUR ---
HEADING REPAIRER NOTES: CHECKED PT'S GASTRIC RESIDUAL AND REVEAL 20ML, ADMINISTERED MEDS ORDERED AND ALSO ADMIN NEW BAG OF NOVASOURCE RENAL AT 60ML/HR
--- NOTE | 2016-12-15 22:10 | NUR ---
hospital television rental clerk notes: checked pt's blood sugar on his right index finger, blood sugar shows 411, since pt's finger and hand were edematous, and the finger used were wet with alcohol, attempted blood sugar check the second time on the left finger/hand which has less edema, blood sugar shows 367. I will based my pt's blood sugar on the second reading which is 367, sliding scale will also based on the 367 reading. will continue to monitor closely for any s/s of hypo or hyperglycemia.
[2016-12-15] MEDS: *INSULIN REGULAR(HUMULIN R)HUM 100 UNIT/ML VIAL SQ PRN (22:15)
--- NOTE | 2016-12-15 22:17 | NUR ---
supervisor television chassis repair notes: 367 blood sugar, 10units of insulin given per sliding scale, pt on gtube feeding, novasource renal at 60ml/hr. will continue to monitor pt for any s/s of hypo or hyperglycemia
[2016-12-16] VITALS (10 sets, daily range): BP systolic 103–149; BP diastolic 51–86
--- NOTE | 2016-12-16 00:02 | NUR ---
GLOBAL LOGISTICS ANALYST NOTES: CHECKED PT'S GTUBE RESIDUAL AND OBTAINED 5ML, FREE WATER FLUSH OF 150CC ADMINISTERED AT THIS TIME ORDERED
--- NOTE | 2016-12-16 04:53 | NUR ---
NEUROSCIENCE SPECIALIST NOTES: ASSISTED INFUSION NURSE IN PROVIDING BED BATH TO THE PT. PT'S ABDOMEN REMAINS SOFT TO TOUCH, NOW WITH ACTIVE BOWEL SOUND HEARD UPON AUSCULTATION OF THE ABDOMEN. PT HAS NO BM OR URINE NOTED. NO RESIDUAL OBTAINED UPON CHECKING GTUBE RESIDUAL.
[2016-12-16] MEDS: FERROUS SULFATE UDC 300 MG/5 ML UDC GT SCH ×3 (05:10→20:33)
--- NOTE | 2016-12-16 05:10 | NUR ---
GAUGE AND WEIGH MACHINE ADJUSTER NOTES: CHECKED GTUBE RESIDUAL, NOTHING WAS OBTAINED, FERROUS SULFATE 300MG SOLUTION ADMIN VIA GTUBE ORDERED
[2016-12-16] MEDS: LEVOTHYROXINE SODIUM 100 MCG TABLET GT SCH (05:37)
--- NOTE | 2016-12-16 05:38 | NUR ---
telecommunications sales representative notes: synthroid 100mcg administered as ordered, checked gastric residual prior to giving the medication, obtained 0 (zero0, will continue to monitor
[2016-12-16] MEDS: BLOOD SUGAR DIAGNOSTIC 1 EACH STRIP VI SCH ×4 (06:21→21:34)
[2016-12-16] MEDS: INSULIN REGULAR, HUMAN 100 UNIT/ML 3 ML VIAL SQ PRN ×2 (06:22→13:19)
--- NOTE | 2016-12-16 06:24 | NUR ---
CREATIVE ASSISTANT NOTES: CHECKED BLOOD SUGAR AND REVEAL 216, 6UNITS OF INSULIN GIVEN PER SLIDING SCALE, PT ON NOVASOURCE RENAL AT 60ML/HR
--- NOTE | 2016-12-16 06:42 | NUR ---
DEVELOPMENT EXECUTIVE CLOSING NOTES: PT ON BED, REMAINS OBTUNDED, OPEN EYES, AROUSES TO PAIN STIMULI. TOLERATED MECH VENT SETTING WELL, SPO2 REMAINS 97-100%. NO APPARENT DISTRESS NOTED. PT REMAINS ON SINUS RHYTHM WITH PVC AND PAC, OCCASIONAL BIGEMINIES, TRIGEMINIES HR 79. SUCTION PT NEEDED AND ABLE TO OBTAIN THICK SPUTUM, SMALL AMOUNT. GTUBE FEEDING REMAINS INFUSING WITH NOVASOURCE RENAL AT 60ML/HR, LATEST RESIDUAL IS NOTHING/ZERO. PT'S ABDOMEN REMAINS SOFT TO TOUCH, WITH ACTIVE BOWEL SOUND NOTED UPON AUSCULTATION OF THE ABDOMEN. BLE AND BUE OFFLOADED. RCW HD CATH REMAINS IN PLACED WITH C/D/I DRESSING. RIGHT WRIST IV ACCESS REMAINS PATENT AND FLUSHING WELL, ON HL. VS REMAINS STABLE. NEEDS ATTENDED. SAFETY PRECAUTIONS FOR FALL REMAINS ENGAGED. CALL LIGHT IN REACH. WILL ENDORSE TO DAY RN FOR CHANTEL.
--- NOTE | 2016-12-16 07:05 | NUR ---
TELE/RN AM NOTES RECEIVED PATIENT IN BED, OBTUNDED, OPEN YES, WITH TRACH MECH VENT, SETTING AC 10, TV 500 FIO2 40% PEEP 5, PORTEX 8, WITH OXYGEN SATURATION READING 98-100%, CONTINUOUSLY MONITORING. NO SIGN AND SYMPTOMS OF DISTRESS, NO GRIMACING, RESTING COMFORTABLY, HOB ELEVATED 35 DEGREE. PT IS ANURIC, ON HD, DONE YESTERDAY. G-TUBE IS INTACT, PATENT, NO RESIDUAL, ON NOVASOURCE 60ML/H FEEDING. ABDOMEN SOFT TO TOUCH, BOWEL SOUNDS PRESENT, HYPOACTIVE. NOTED GENERALIZED EDEMA, BLE OFFLOADED, REMAINS ON ISOFLEX MATTRESS FOR SKIN PROTECTION. PATIENT IS ON TELE MONITOR, WITH SINUS RHYTHM. BED IN LOW POSITION, CALL LIGHT WITHIN EASY REACH, WILL CONTINUE TO MONITOR ACCORDINGLY.
[2016-12-16 07:19] LABS: BASOPHILS % (AUTO) 0.1 % (0.0-2.0); EOSINOPHILS # (AUTO) 0.1 /CMM (0.0-0.7); EOSINOPHILS % (AUTO) 0.8 % (0.0-6.0); HEMATOCRIT 27 % (39-51); HEMOGLOBIN 8.9 g/dL (13.5-17.5); LYMPHOCYTES # (AUTO) 1.1 /CMM (0.8-4.8); LYMPHOCYTES % (AUTO) 7.4 % (20.0-44.0); MEAN CORPUSCULAR HEMOGLOBIN 36 PG (26.0-33.0); MEAN CORPUSCULAR HGB CONC 33 g/dl (31.0-36.0); MEAN CORPUSCULAR VOLUME 108 fL (80-96); MONOCYTES # (AUTO) 0.2 /CMM (0.1-1.30); NEUTROPHILS # (AUTO) 13.7 /CMM (1.8-8.9); NEUTROPHILS % (AUTO) 90.7 % (43.0-81.0); PLATELET COUNT (AUTO) 250 /CMM (150-450); RDW COEFFICIENT OF VARIATION 15.1 (11.5-15.0); WHITE BLOOD COUNT (AUTO) 15.1 K/uL (4.3-11.0)
[2016-12-16 07:36] LABS: CALCIUM, SERUM 12.4 mg/dL (8.5-10.1); CREATININE 2.9 mg/dL (0.6-1.3); MAGNESIUM 2.2 mg/dL (1.8-2.4); PHOSPHORUS 3.6 mg/dL (2.5-4.9); POTASSIUM 4.1 mmol/L (3.5-5.1)
[2016-12-16] MEDS: MULTIVITAMINS W-MINERALS 1 TAB TABLET GT SCH (09:20)
[2016-12-16] MEDS: LACTOBACILLUS RHAMNOSUS GG 1 EACH CAP.SPRINK GT SCH ×2 (09:20→16:35)
[2016-12-16] MEDS: predniSONE 20 MG TABLET GT SCH (09:20)
[2016-12-16] MEDS: CINACALCET HCL 30 MG TABLET GT SCH (09:20)
[2016-12-16] MEDS: CYANOCOBALAMIN 500 MCG TABLET GT SCH (09:20)
[2016-12-16] MEDS: VIT B CMPLX 3/FA/VIT C/BIOTIN 1 TAB TABLET GT SCH (09:21)
[2016-12-16] MEDS: FOLIC ACID 1 MG TABLET GT SCH (09:21)
[2016-12-16] MEDS: PANTOPRAZOLE 40 MG/PACK PACK GT SCH ×2 (09:21→20:33)
[2016-12-16] MEDS: FLUDROCORTISONE 0.1 MG TABLET GT SCH (09:21)
[2016-12-16] MEDS: HEPARIN SODIUM, PORCINE 5000 UNITS/1 ML VIAL SQ SCH ×2 (09:23→21:43)
[2016-12-16] MEDS: INSULIN DETEMIR 100 UNIT/ML CARTRIDGE SQ SCH ×2 (09:24→21:40)
[2016-12-16] MEDS: Z GUARD REMEDY 2 OZ OINT TP SCH ×2 (09:25→16:35)
[2016-12-16] MEDS: NYSTATIN CREAM 15 GM TUBE TP SCH ×2 (09:25→16:35)
[2016-12-16 09:39] LABS: ANISOCYTOSIS 1+; BAND % (MANUAL) 4 % (0.0-5.0); LYMPHOCYTES % (MANUAL) 9 % (16-48); MONOCYTES % (MANUAL) 3 % (0-11.0); NEUTROPHILS % (MANUAL) 84 (42-76); PLATELET ESTIMATE ADEQUATE
--- NOTE | 2016-12-16 13:23 | NUR ---
BLOOD GLUCOSE CHECKED WITH READING 242, REGULAR INSULIN 6 UNITS GIVEN PER SLIDING SCALE
[2016-12-16] MEDS: *INSULIN REGULAR(HUMULIN R)HUM 100 UNIT/ML VIAL SQ PRN ×2 (16:49→21:42)
[2016-12-16] MEDS: RENAL NOVASOURCE 1,000 ML BOTTLE GT PRN (16:57)
--- NOTE | 2016-12-16 18:00 | NUR ---
TELE/RN NOTES LAB REPORT RECEIVED AMIKACIN DRUG BLOOD LEVEL RESULT 15.1, INFORMED PHARMACY, WILL HOLD THE DOSE
--- NOTE | 2016-12-16 19:11 | NUR ---
TELE/RN CLOSING NOTES PATIENT IS IN THE BED, REMAINS OBTUNDED, OPEN EYES, AROUSABLE TO PAIN STIMULI. ON MECHANICAL VENT, TOLERATING WELL, SPO2 100%. TELE MONITOR IN PLACE WITH SINUS RHYTHM WITH PVC AND PAC, OCCASIONAL BIGEMINIES, TRIGEMINIES HR 78. SUCTIONED PT NEEDED WITH THICK SPUTUM, SMALL AMOUNT. RCW HD CATH INTACT WITH DRESSING, NO BLEEDING, NO S/SX INFECTION. RIGHT WRIST IV SITE PATENT. REMAINS ON G-TUBE FEEDING WITH NOVASOURCE RENAL AT 60ML/HR, TOLERATING WELL, ABDOMEN SOFT TO TOUCH, WITH HYPOACTIVE BOWEL SOUND. TURNED REPOSITIONED EVERY 2 HOURS. CONTINUES TO BE STABLE, BED IN LOW POSITION 2 SR UP FOR SAFETY, WITH CALL LIGHT WITHIN EASY REACH ALL THE TIME. WILL ENDORSE TO THE IRRIGATION FOREMAN NURSE ACCORDINGLY FOR CHANTEL.
--- NOTE | 2016-12-16 19:30 | NUR ---
TELE/RN NOTES RECEIVED PATIENT IN BED, REMAINS OBTUNDED, OPEN EYES, AROUSABLE TO PAINFUL STIMULI. ON MECHANICAL VENT, TOLERATING WELL, SPO2 100%. SUCTIONED PRN. RCW HD CATH INTACT WITH DRESSING, NO BLEEDING, NO S/SX INFECTION. RIGHT WRIST IV SITE INTACT AND PATENT. NO S/S OF INFILTRATION NOTED. ON G-TUBE FEEDING OF NOVASOURCE RENAL AT 60ML/HR, SIVA WELL. ABDOMEN SOFT AND NON DISTENDED. HOB ELEVATED FOR ASPIRATION PRECAUTION. BED ON LOWEST LEVEL. CALL LIGHT WITHIN REACH. WILL CONTINUE TO MONITOR.
[2016-12-17] VITALS (7 sets, daily range): BP systolic 109–133; BP diastolic 58–78
[2016-12-17] MEDS: FERROUS SULFATE UDC 300 MG/5 ML UDC GT SCH ×3 (05:10→21:06)
[2016-12-17] MEDS: LEVOTHYROXINE SODIUM 100 MCG TABLET GT SCH (06:28)
[2016-12-17] MEDS: BLOOD SUGAR DIAGNOSTIC 1 EACH STRIP VI SCH ×4 (06:29→21:17)
[2016-12-17] MEDS: INSULIN REGULAR, HUMAN 100 UNIT/ML 3 ML VIAL SQ PRN ×3 (06:36→17:37)
--- NOTE | 2016-12-17 07:06 | NUR ---
TELE/RN NOTES PATIENT IN BED, REMAINS OBTUNDED, OPEN EYES, AROUSABLE TO PAINFUL STIMULI. ON MECHANICAL VENT, TOLERATING WELL, SPO2 100%. SUCTIONED PRN. RCW HD CATH INTACT WITH DRESSING, NO BLEEDING, NO S/SX INFECTION. RIGHT WRIST IV SITE INTACT AND PATENT. NO S/S OF INFILTRATION NOTED. ON G-TUBE FEEDING OF NOVASOURCE RENAL AT 60ML/HR, SIVA WELL. NO RESIDUAL NOTED. ABDOMEN SOFT AND NON DISTENDED. HOB ELEVATED FOR ASPIRATION PRECAUTION. NO S/S OF HYPO/ HYPERGLYCEMIA NOTED. BED ON LOWEST LEVEL. CALL LIGHT WITHIN REACH. WILL ENDORSE TO NEXT SHIFT FOR CHANTEL.
[2016-12-17 07:17] LABS: CALCIUM, SERUM 12.4 mg/dL (8.5-10.1); CREATININE 3.6 mg/dL (0.6-1.3); POTASSIUM 4.8 mmol/L (3.5-5.1)
--- NOTE | 2016-12-17 07:25 | NUR ---
TELE/RN AM NOTES PATIENT IS IN THE BED, REMAINS OBTUNDED, OPEN EYES, AROUSABLE TO PAIN STIMULI. ON MECHANICAL VENT, TOLERATING WELL, SPO2 100%. HOB ELEVATED [address] DEGREE. TELE MONITOR IN PLACE WITH SINUS RHYTHM WITH PVC, HR 76. RCW HD CATH INTACT WITH DRESSING, NO BLEEDING, NO S/SX INFECTION. RIGHT WRIST IV SITE PATENT, INTACT. ON G-TUBE FEEDING WITH NOVASOURCE RENAL AT 60ML/HR, TOLERATING WELL, ABDOMEN SOFT TO TOUCH, WITH HYPOACTIVE BOWEL SOUND, NO RESIDUAL. BED IN LOW POSITION 2 SR UP FOR SAFETY, WITH CALL LIGHT WITHIN EASY REACH ALL THE TIME. WILL CONTINUE TO MONITOR ACCORDINGLY
[2016-12-17] MEDS: PANTOPRAZOLE 40 MG/PACK PACK GT SCH ×2 (09:22→21:06)
[2016-12-17] MEDS: CYANOCOBALAMIN 500 MCG TABLET GT SCH (09:23)
[2016-12-17] MEDS: MULTIVITAMINS W-MINERALS 1 TAB TABLET GT SCH (09:23)
[2016-12-17] MEDS: predniSONE 20 MG TABLET GT SCH (09:23)
[2016-12-17] MEDS: LACTOBACILLUS RHAMNOSUS GG 1 EACH CAP.SPRINK GT SCH ×2 (09:23→17:20)
[2016-12-17] MEDS: FLUDROCORTISONE 0.1 MG TABLET GT SCH (09:23)
[2016-12-17] MEDS: VIT B CMPLX 3/FA/VIT C/BIOTIN 1 TAB TABLET GT SCH (09:23)
[2016-12-17] MEDS: FOLIC ACID 1 MG TABLET GT SCH (09:23)
[2016-12-17] MEDS: NYSTATIN CREAM 15 GM TUBE TP SCH ×2 (09:23→17:19)
[2016-12-17] MEDS: Z GUARD REMEDY 2 OZ OINT TP SCH ×2 (09:24→17:19)
[2016-12-17] MEDS: INSULIN DETEMIR 100 UNIT/ML CARTRIDGE SQ SCH ×2 (09:32→21:21)
[2016-12-17] MEDS: HEPARIN SODIUM, PORCINE 5000 UNITS/1 ML VIAL SQ SCH ×2 (09:33→21:24)
--- NOTE | 2016-12-17 11:40 | NUR ---
TELE/RN NOTES LAB CALLED, GAVE AN ORDER FOR VANCOMYCIN 500 MG POST DIALYSIS, NOTED CARRIED OUT, DIALYSIS NURSE MADE AWARE
[2016-12-17] MEDS: VANCOMYCIN 500 MG in IV D5W 100 ML IV PRN (12:57)
--- NOTE | 2016-12-17 15:04 | NUR ---
TELE/RN NOTES DIALYSIS DONE, PATIENT TOLERATED WELL, 200O ML FLUID OUTPUT, VANCOMYCIN GIVEN POST DIALYSIS
[2016-12-17] MEDS ORDERED: PAMIDRONATE 30 MG in IV NS 0.9% 500 ML IV ONE (16:00)
[2016-12-17] MEDS ORDERED: SECONDARY IV SET 1 EA INFUS.SET MC ONE (17:09)
[2016-12-17] MEDS: RENAL NOVASOURCE 1,000 ML BOTTLE GT PRN ×2 (17:19→17:24)
--- NOTE | 2016-12-17 17:45 | NUR ---
TELE/RN NOTES BLOOD SUGAR CHECKED 303, INSULIN REGULAR 12 UNITS GIVEN SQ PER SLIDING SCALE.
--- NOTE | 2016-12-17 18:30 | NUR ---
TELE/RN NOTES AMIKACYN DRUG BLOOD LEVEL REPORTED BY LAB 12.7, WILL CONTINUE TO HOLD THE MEDICATION. WILL ENDORSE TO THE NEXT SHIFT
--- NOTE | 2016-12-17 19:18 | NUR ---
TELE/RN NOTES RECEIVED PATIENT IN BED, OBTUNDED, OPEN EYES, AROUSABLE TO PAINFUL STIMULI. ON MECHANICAL VENT, TOLERATING WELL, SPO2 100%. SUCTIONED PRN. RCW HD CATH INTACT WITH DRESSING, NO BLEEDING, NO S/SX INFECTION. RIGHT WRIST IV SITE INTACT AND PATENT. NO S/S OF INFILTRATION NOTED. ON G-TUBE FEEDING OF NOVASOURCE RENAL AT 60ML/HR, SIVA WELL. ABDOMEN SOFT AND NON DISTENDED. NO S/S OF HYPO/ HYPERGLYCEMIA NOTED. HOB ELEVATED FOR ASPIRATION PRECAUTION. BED ON LOWEST LEVEL. CALL LIGHT WITHIN REACH. WILL CONTINUE TO MONITOR.
--- NOTE | 2016-12-17 19:50 | NUR ---
TELE/RN CLOSING NOTES PATIENT IS IN THE BED, OPEN EYES, RESPONSIVE TO PAIN STIMULI. ON MECHANICAL VENT, TOLERATING WELL, SPO2 100%. TELE MONITOR IN PLACE WITH SINUS RHYTHM WITH PVC AND BBB, HR 76 SUCTIONED PT NEEDED WITH THICK SPUTUM, SMALL AMOUNT. RCW HD CATH INTACT WITH DRESSING, NO BLEEDING, NO S/SX INFECTION. RIGHT WRIST IV SITE PATENT. REMAINS ON G-TUBE FEEDING WITH NOVASOURCE RENAL AT 60ML/HR, TOLERATING WELL, ABDOMEN SOFT TO TOUCH, NO RESIDUAL,TURNED REPOSITIONED EVERY 2 HOURS, INCONTINENCE CARE PROVIDED . CONTINUES TO BE STABLE, BED IN LOW POSITION 2 SR UP FOR SAFETY, WITH CALL LIGHT WITHIN EASY REACH ALL THE TIME. ENDORSED TO THE [employer]IVE CHAIRMAN NURSE ACCORDINGLY FOR CHANTEL.
[2016-12-17] MEDS: *INSULIN REGULAR(HUMULIN R)HUM 100 UNIT/ML VIAL SQ PRN (21:23)
[2016-12-18] VITALS (8 sets, daily range): BP systolic 100–133; BP diastolic 47–77
[2016-12-18] MEDS: LEVOTHYROXINE SODIUM 100 MCG TABLET GT SCH (05:58)
[2016-12-18] MEDS: FERROUS SULFATE UDC 300 MG/5 ML UDC GT SCH ×3 (05:58→21:10)
[2016-12-18] MEDS: BLOOD SUGAR DIAGNOSTIC 1 EACH STRIP VI SCH ×4 (05:58→22:19)
[2016-12-18] MEDS: INSULIN REGULAR, HUMAN 100 UNIT/ML 3 ML VIAL SQ PRN ×3 (06:10→17:09)
--- NOTE | 2016-12-18 06:59 | NUR ---
TELE/RN NOTES PATIENT IN BED, OBTUNDED, OPEN EYES, AROUSABLE TO PAINFUL STIMULI. ON MECHANICAL VENT, TOLERATING WELL, SPO2 100%. SUCTIONED PRN. RCW HD CATH INTACT WITH DRESSING, NO BLEEDING, NO S/SX INFECTION. RIGHT WRIST IV SITE INTACT AND PATENT. NO S/S OF INFILTRATION NOTED. ON G-TUBE FEEDING OF NOVASOURCE RENAL AT 60ML/HR, SIVA WELL. ABDOMEN SOFT AND NON DISTENDED. NO S/S OF HYPO/ HYPERGLYCEMIA NOTED. GOOD PERICARE RENDERED. HOB ELEVATED FOR ASPIRATION PRECAUTION. BED ON LOWEST LEVEL. CALL LIGHT WITHIN REACH. WILL ENDORSE TO NEXT SHIFT FOR CHANTEL.
--- NOTE | 2016-12-18 07:12 | NUR ---
TELE/RN AM NOTES RECEIVED PATIENT IN BED, HOB ELEVATED 35 DEGREE, OBTUNDED, EYES OPEN, WITH TRACH MECH VENT, OXYGEN SATURATION READING 98-100%, CONTINUOUSLY MONITORING. NO SIGN AND SYMPTOMS OF DISTRESS, NO GRIMACING, RESTING COMFORTABLY. IV LINE ON RIGHT WRIST INTACT, PATENT. PT IS ON HD, SCHEDULED TODAY. G-TUBE IS INTACT, PATENT, NO RESIDUAL, NOVASOURCE 60ML/H FEEDING TOLERATING WELL, NO RESIDUAL. ABDOMEN SOFT TO TOUCH, BOWEL SOUNDS PRESENT, NOTED GENERALIZED EDEMA, BLE OFFLOADED, REMAINS ON ISOFLEX MATTRESS FOR SKIN PROTECTION. PATIENT IS ON TELE MONITOR, WITH SINUS RHYTHM. BED IN LOW POSITION, CALL LIGHT WITHIN EASY REACH, WILL CONTINUE TO MONITOR ACCORDINGLY.
[2016-12-18 08:02] LABS: EOSINOPHILS # (AUTO) 0.1 /CMM (0.0-0.7); EOSINOPHILS % (AUTO) 0.4 % (0.0-6.0); HEMATOCRIT 27 % (39-51); HEMOGLOBIN 9.1 g/dL (13.5-17.5); LYMPHOCYTES % (AUTO) 6.4 % (20.0-44.0); MEAN CORPUSCULAR HEMOGLOBIN 35 PG (26.0-33.0); MEAN CORPUSCULAR HGB CONC 33 g/dl (31.0-36.0); MEAN CORPUSCULAR VOLUME 106 fL (80-96); MONOCYTES # (AUTO) 0.4 /CMM (0.1-1.30); MONOCYTES % (AUTO) 2.3 % (2.0-12.0); NEUTROPHILS # (AUTO) 14.3 /CMM (1.8-8.9); NEUTROPHILS % (AUTO) 90.9 % (43.0-81.0); PLATELET COUNT (AUTO) 297 /CMM (150-450); RDW COEFFICIENT OF VARIATION 14.7 (11.5-15.0); RED BLOOD CELL COUNT(AUTO) 2.56 MIL/uL (4.5-6.0); WHITE BLOOD COUNT (AUTO) 15.8 K/uL (4.3-11.0)
[2016-12-18 08:18] LABS: CALCIUM, SERUM 11.2 mg/dL (8.5-10.1); CREATININE 2.8 mg/dL (0.6-1.3); PHOSPHORUS 4.6 mg/dL (2.5-4.9); POTASSIUM 4.4 mmol/L (3.5-5.1)
[2016-12-18] MEDS: CYANOCOBALAMIN 500 MCG TABLET GT SCH (09:00)
[2016-12-18] MEDS: FOLIC ACID 1 MG TABLET GT SCH (09:00)
[2016-12-18] MEDS: Z GUARD REMEDY 2 OZ OINT TP SCH ×2 (09:00→16:55)
[2016-12-18] MEDS: VIT B CMPLX 3/FA/VIT C/BIOTIN 1 TAB TABLET GT SCH (09:00)
[2016-12-18] MEDS: MULTIVITAMINS W-MINERALS 1 TAB TABLET GT SCH (09:00)
[2016-12-18] MEDS: predniSONE 20 MG TABLET GT SCH (09:45)
[2016-12-18] MEDS: LACTOBACILLUS RHAMNOSUS GG 1 EACH CAP.SPRINK GT SCH ×2 (09:45→16:54)
[2016-12-18] MEDS: FLUDROCORTISONE 0.1 MG TABLET GT SCH (09:46)
[2016-12-18] MEDS: PANTOPRAZOLE 40 MG/PACK PACK GT SCH ×2 (09:46→21:10)
[2016-12-18] MEDS: HEPARIN SODIUM, PORCINE 5000 UNITS/1 ML VIAL SQ SCH ×2 (09:48→21:10)
[2016-12-18] MEDS: INSULIN DETEMIR 100 UNIT/ML CARTRIDGE SQ SCH ×2 (09:49→21:12)
[2016-12-18] MEDS: Z GUARD REMEDY 2 OZ OINT TP PRN ×2 (10:09→21:26)
[2016-12-18] MEDS: NYSTATIN CREAM 15 GM TUBE TP SCH ×2 (10:09→16:55)
[2016-12-18 10:15] LABS: ANISOCYTOSIS 1+; BAND % (MANUAL) 3 % (0.0-5.0); EOSINOPHILS % (MANUAL) 1 % (0-4); LYMPHOCYTES % (MANUAL) 6 % (16-48); MONOCYTES % (MANUAL) 3 % (0-11.0); NEUTROPHILS % (MANUAL) 87 (42-76); PLATELET ESTIMATE GIANT PLATELET SEEN
--- NOTE | 2016-12-18 10:25 | NUR ---
TELE/RN NOTES HELD MORNING VITAMIN SUPPLEMENT D/T PATIENT IS HAVING DIALYSIS CURRENT TIME (PER DIALYSIS NURSE)
--- NOTE | 2016-12-18 12:23 | NUR ---
TELE/RN NOTES VANCO BLOOD LEVEL IS 18, PER PHARMACY TO GIVE VANCOMYCIN 500 MG IV POST DIALYSIS, NOTED CARRIED OUT
--- NOTE | 2016-12-18 12:35 | NUR ---
TELE/RN NOTES BLOOD SUGAR CHECKED, READING 155, INSULIN REGULAR GIVEN 2 UNITS SQ
--- NOTE | 2016-12-18 13:23 | NUR ---
TELE/RN NOTES DIALYSIS COMPLETED, TOLERATED WELL, 2800 FLUID REMOVED, BLOOD PRESSURE 103/51, 82, 97.4, 20. CENTRAL LINE DRESSING CHANGED BY DIALYSIS NURSE
[2016-12-18] MEDS ORDERED: SECONDARY IV SET 1 EA INFUS.SET MC ONE ×2 (13:28→17:36)
[2016-12-18] MEDS: VANCOMYCIN 500 MG in IV D5W 100 ML IV PRN (13:58)
--- NOTE | 2016-12-18 17:10 | NUR ---
TELE/RN NOTES BLOOD SUGAR CHECKED READING 305, 12 UNITS REGULAR INSULIN GIVEN SQ ORDERED
[2016-12-18] MEDS: AMIKACIN 400 MG in IV D5W 100 ML IV PRN (17:43)
[2016-12-18] MEDS: RENAL NOVASOURCE 1,000 ML BOTTLE GT PRN (17:43)
--- NOTE | 2016-12-18 19:30 | NUR ---
HVAC TECH INITIAL NOTES: RECEIVED REPORT FROM ARDEN HARRELL. PT ON BED, AWAKE, OPEN YES, RESPOND TO LIGHT TOUCH, NON VERBAL, TRACHE MECH VENT DEPENDENT WITH THE FF SETTING: AC 10, TV 500 FIO2 40% PEEP 5, PORTEX 8, CONTINUOUS PULSE OX SHOWING 98-100% OXYGEN SATURATION. PT APPEARS CALM AND COMFORTABLE, NO FACIAL GRIMACE NOTED. PT ON SINUS RHYTHM HR 87.. S/P HD TODAY WITH 2800ML OUTPUT. PT IS ANURIC. PT HAS GTUBE FEEDING, ABDOMEN SOFT TO TOUCH, WITH ACTIVE BOWEL SOUND NOTED UPON AUSCULTATION. PT RECEIVING NOVASOURCE RENAL AT 60ML/HR. NOTED GENERALIZED EDEMA, BLE AND BUE OFFLOADED. PT ON ISOFLEX MATTRESS. . SAFETY PRECAUTIONS FOR FALL INITIATED CALL LIGHT IN REACH, WILL CONTINUE TO MONITOR
--- NOTE | 2016-12-18 19:40 | NUR ---
TELE/RN CLOSING NOTES PATIENT IS IN THE BED, OPEN EYES, RESPONSIVE TO VERBAL STIMULI. ON MECHANICAL VENT, TOLERATING WELL, SPO2 99%. TELE MONITOR IN PLACE WITH SINUS RHYTHM WITH PVC, HR 93. SUCTIONED PT NEEDED WITH SMALL AMOUNT THICK SPUTUM. RCW HD CATH INTACT WITH DRESSING, NO BLEEDING, NO S/SX INFECTION. RIGHT WRIST IV SITE REPLACED WITH NEW 20 G, PATENT. REMAINS ON G-TUBE FEEDING TOLERATING WELL, ABDOMEN SOFT TO TOUCH, TURNED REPOSITIONED EVERY 2 HOURS, INCONTINENCE CARE PROVIDED, X1 BM. IV ATB VANCO AND AMIKACIN GIVEN ORDERED POST DIALYSIS. CONTINUES TO BE STABLE, BED IN LOW POSITION 2 SR UP FOR SAFETY, WITH CALL LIGHT WITHIN EASY REACH ALL THE TIME. ENDORSED TO THE INFORMATION RESOURCES DIRECTOR NURSE ACCORDINGLY FOR CHANTEL.
--- NOTE | 2016-12-18 21:12 | NUR ---
SPD TECH NOTES: CHECKED BLOOD SUGAR AND REVEAL 291, LEVEMIR 17UNITS GIVEN SCHEDULED. ALSO CHECKED PT'S GT RESIDUAL AND REVEAL 5ML. 2100 MEDS ADMIN SCHEDULED
[2016-12-18] MEDS: *INSULIN REGULAR(HUMULIN R)HUM 100 UNIT/ML VIAL SQ PRN (22:21)
--- NOTE | 2016-12-18 22:22 | NUR ---
EQUITY RESEARCH ASSOCIATE NOTES: CHECKED BLOOD SUGAR AT THIS TIME, REVEAL 279, 6UNITS OF INSULIN GIVEN PER SLIDING SCALE, PT ON GTUBE FEEDING RECEIVING NOVASOURCE RENAL AT 60ML/HR, WILL MONITOR PT FOR ANY S/S OF HYPER OR HYPOGLYCEMIA
--- NOTE | 2016-12-18 23:41 | NUR ---
LANG PATH THERAPIST NOTES: SUCTION PT NEEDED, OBTAINED THICK SECRETIONS SCANTY IN AMOUNT, PT TOLERATED PROCEDURE WELL.
[2016-12-19] VITALS (7 sets, daily range): BP systolic 101–130; BP diastolic 57–68
--- NOTE | 2016-12-19 | NUR ---
VACUUM CLEANER MECHANIC NOTES: FLUSH GTUBE WITH 150CC OF FREE WATER ORDERED. PT'S ABDOMEN SOFT TO TOUCH WITH ACTIVE BOWEL SOUND HEARD UPON AUSCULTATION OF PT'S ABDOMEN. NO RESIDUAL NOTED UPON CHECKING GTUBE RESIDUAL
--- NOTE | 2016-12-19 04:00 | NUR ---
EMPLOYEE BENEFITS MANAGER NOTES: ASSISTED DEPARTMENT CHAIRPERSON IN PROVIDING BED BATH TO THE PT, ALSO WOUND CARE DONE ORDERED, BLE OFFLOADED, SUCTION PT, PT HAD 1BM LARGE GREENISH BLACK IN COLOR
[2016-12-19] MEDS: FERROUS SULFATE UDC 300 MG/5 ML UDC GT SCH ×3 (05:26→21:11)
--- NOTE | 2016-12-19 05:27 | NUR ---
TECHNOLOGY ENGINEER NOTES: CHECKED GTUBE RESIDUAL AND REVEAL 5ML, FERROUS SULFATE 300MG ADMIN VIA GT SCHEDULED
--- NOTE | 2016-12-19 06:00 | NUR ---
MANAGER PUBLISHING NOTES: CHECKED FOR GTUBE RESIDUAL OBTAINED ZERO ML, SYNTHROID 100MG ADMINISTERED VIA GTUBE, ALSO FLUSHED GTUBE WITH 150CC OF FREE WATER SCHEDULED Q6HRS
[2016-12-19] MEDS: LEVOTHYROXINE SODIUM 100 MCG TABLET GT SCH (06:11)
[2016-12-19] MEDS: BLOOD SUGAR DIAGNOSTIC 1 EACH STRIP VI SCH ×4 (06:23→21:12)
[2016-12-19] MEDS: INSULIN REGULAR, HUMAN 100 UNIT/ML 3 ML VIAL SQ PRN ×3 (06:24→17:13)
--- NOTE | 2016-12-19 06:24 | NUR ---
SOLAR APPLICATIONS DEVELOPMENT ENGINEER NOTES: CHECKED BLOOD SUGAR AND REVEAL 199, 3UNITS OF INSULIN GIVEN PER SLIDING SCALE, PT ON GTUBE FEEDING NOVASOURCE RENAL AT 60ML/HR, TOLERATED WELL BY THE PT
--- NOTE | 2016-12-19 06:47 | NUR ---
DAY TRADER CLOSING NOTES: PT ON BED, AWAKE, MORE RESPONSIVE, TOLERATED MECH VENT SETTING WELL, ON CONTINUOUS PULSE OXIMETRY SPO2 RANGING 98-100%. ON SINUS RHYTHM WITH PVC HR 75. APPEARS CALM AND COMFORTABLE, NOT IN APPARENT DISTRESS. SUCTION PT PRN. RCW HD CATH REMAINS IN PLACED, WITH C/D/I DRESSING. REMAINS ON G TUBE FEEDING, WITH ABDOMEN SOFT TO TOUCH AND ACTIVE BOWEL SOUND NOTED. RIGHT WRIST IV ACCESS REMAINS PATENT AND FLUSHING WELL, ON HL. BLE AND BUE KEPT OFFLOADED. VS REMAINS STABLE, NEEDS ATTENDED. SAFETY PRECAUTIONS FOR FALL REMAINS ENGAGED, CALL LIGHT IN REACH, WILL ENDORSE TO DAY RN FOR CHANTEL.
[2016-12-19 07:25] LABS: POTASSIUM 3.8 mmol/L (3.5-5.1)
[2016-12-19 07:26] LABS: CALCIUM, SERUM 9.7 mg/dL (8.5-10.1); CREATININE 2.4 mg/dL (0.6-1.3)
--- NOTE | 2016-12-19 07:35 | NUR ---
RN NOTES: PT ON BED, AWAKE, MORE RESPONSIVE, TOLERATED MECH VENT SETTING WELL, ON CONTINUOUS PULSE OXIMETRY SPO2 RANGING 98-100%. ON SINUS RHYTHM WITH PVC HR 75. APPEARS CALM AND COMFORTABLE, NOT IN APPARENT DISTRESS. SUCTION PT PRN. RCW HD CATH REMAINS IN PLACED, WITH C/D/I DRESSING. REMAINS ON G TUBE FEEDING, WITH ABDOMEN SOFT TO TOUCH AND ACTIVE BOWEL SOUND NOTED. RIGHT WRIST IV ACCESS REMAINS PATENT AND FLUSHING WELL, ON HL. BLE AND BUE KEPT OFFLOADED. VS REMAINS STABLE, NEEDS ATTENDED. SAFETY PRECAUTIONS FOR FALL REMAINS ENGAGED, CALL LIGHT IN REACH, WILL CONTINUE TO MONITOR
[2016-12-19] MEDS: FOLIC ACID 1 MG TABLET GT SCH (09:21)
[2016-12-19] MEDS: CYANOCOBALAMIN 500 MCG TABLET GT SCH (09:22)
[2016-12-19] MEDS: LACTOBACILLUS RHAMNOSUS GG 1 EACH CAP.SPRINK GT SCH ×2 (09:22→17:14)
[2016-12-19] MEDS: MULTIVITAMINS W-MINERALS 1 TAB TABLET GT SCH (09:22)
[2016-12-19] MEDS: VIT B CMPLX 3/FA/VIT C/BIOTIN 1 TAB TABLET GT SCH (09:23)
[2016-12-19] MEDS: FLUDROCORTISONE 0.1 MG TABLET GT SCH (09:23)
[2016-12-19] MEDS: predniSONE 20 MG TABLET GT SCH (09:23)
[2016-12-19] MEDS: PANTOPRAZOLE 40 MG/PACK PACK GT SCH ×2 (09:23→21:11)
[2016-12-19] MEDS: NYSTATIN CREAM 15 GM TUBE TP SCH ×2 (09:24→17:15)
[2016-12-19] MEDS: Z GUARD REMEDY 2 OZ OINT TP SCH ×2 (09:25→17:15)
[2016-12-19] MEDS: INSULIN DETEMIR 100 UNIT/ML CARTRIDGE SQ SCH ×2 (09:29→21:23)
[2016-12-19] MEDS: RENAL NOVASOURCE 1,000 ML BOTTLE GT PRN (15:19)
--- NOTE | 2016-12-19 18:53 | NUR ---
RN NOTES MADE MD AWARE OF ABNORMAL LAB VALUE FOR TODAY AND TRENDS, PT ON DIALYSIS WILL HAVE HEMODIALYSIS TOMORROW NO NEW ORDERS AT THIS TIME, WILL CONTINUE TO MONITOR
--- NOTE | 2016-12-19 18:54 | NUR ---
RN NOTES: PT ON BED, AWAKE, ABLE TO NOD HEAD AND TRACK WITH EYES, TOLERATED MECH VENT SETTING WELL, ON CONTINUOUS PULSE OXIMETRY SPO2 RANGING 98-100%. ON SINUS RHYTHM HR 79. APPEARS CALM AND COMFORTABLE, NOT IN APPARENT DISTRESS. SUCTION PT PRN. RCW HD CATH REMAINS IN PLACED, WITH C/D/I DRESSING. REMAINS ON G TUBE FEEDING, WITH ABDOMEN SOFT TO TOUCH AND ACTIVE BOWEL SOUND NOTED. RIGHT WRIST IV ACCESS REMAINS PATENT AND FLUSHING WELL, ON HL. BLE AND BUE KEPT OFFLOADED. VS REMAINS STABLE, NEEDS ATTENDED. SAFETY PRECAUTIONS FOR FALL REMAINS ENGAGED, CALL LIGHT IN REACH, WILL CONTINUE TO MONITOR AND ENDORSE TO NEXT SHIFT FOR CONTINUITY OF CARE
--- NOTE | 2016-12-19 19:30 | NUR ---
HIMS CLERK OPENING NOTES: PATIENT IN BED, NON-VERBAL, OPENS EYES AND WITHDRAWS FROM PAIN, APPEARS CALM AND IN NO DISTRESS. NOTED TO BE TRYING TO "FIGHT BACK" WITH HIS R ARM BY TRYING TO PUSH NURSE' HANDS AWAY WHEN GTUBE WAS BEING CHECKED. ON [facility] VENT[facility]ATION WITH THE FF SETTINGS: AC:10, TV: 500, FIO2: 40%, PEEP: 5, WITH TRACHE TUBE OF PORTEX#8. MAINTAINED HOB ON ELEVATED POSITION. PATIENT HAS GTUBE RUNNING WITH FEEDING OF NOVASOURCE AT 60 ML/HR. NOTED ABOUT 30 ML RESIDUAL AT THIS TIME. PATIENT HAS PIV OVER R WRIST G22 INTACT AND PATENT, WELL HD CATH AT [facility], WITH CLEAN AND INTACT DRESSING. PROVIDED FOR COMFORT AND SAFETY. BED IN LOWEST AND LOCKED POSITION, SIDERAILS UP X 3. WILL CONT TO MONITOR.
[2016-12-19] MEDS: *INSULIN REGULAR(HUMULIN R)HUM 100 UNIT/ML VIAL SQ PRN (21:25)
--- NOTE | 2016-12-19 21:52 | NUR ---
RN NOTES: PATIENT'S BLOOD SUGAR CHECKED AT 341 MG/DL, ADMINISTERED 17 UNITS LEVEMIR SQ + 8 UNITS REGULAR INSULIN. WITH GTUBE FEEDING RUNNING CONTINUOUSLY, PATENT AND IN PLACE. WILL CONT TO MONITOR.
[2016-12-20] VITALS: BP 127/69
--- NOTE | 2016-12-20 02:22 | NUR ---
RN NOTES: NOTED BLE TO BE WARM TO TOUCH ONLY FROM THE BENAVIDES DOWN TO ANKLE. MAINTAINED ELEVATED ON PILLOWS.
[2016-12-20 04:00] VITALS: BP 140/86
[2016-12-20] MEDS: FERROUS SULFATE UDC 300 MG/5 ML UDC GT SCH ×3 (05:38→21:11)
[2016-12-20] MEDS: LEVOTHYROXINE SODIUM 100 MCG TABLET GT SCH (06:26)
[2016-12-20] MEDS: BLOOD SUGAR DIAGNOSTIC 1 EACH STRIP VI SCH ×4 (06:31→21:11)
[2016-12-20] MEDS: INSULIN REGULAR, HUMAN 100 UNIT/ML 3 ML VIAL SQ PRN ×3 (06:33→16:56)
[2016-12-20] MEDS: RENAL NOVASOURCE 1,000 ML BOTTLE GT PRN (06:35)
--- NOTE | 2016-12-20 07:11 | NUR ---
DATA REPORT ANALYST CLOSING NOTES: PATIENT IN BED, NON VERBAL, BUT OPENS EYES SPONTANEOUSLY, TRACKS WITH EYES. APPEARS MORE AWAKE AND RESPONSIVE THROUGH SHIFT. [facility], WITH 100% O2 SATURATION. ON TELE MONITORING, SHOWING SINUS RHYTHM AT RATE OF 70S IN MONITOR. BLOOD SUGAR CHECKED AT 262MG/DL, ADMINISTERED 9 UNITS REGUALR INSULIN. DUE MEDS GIVEN. MORNING CARE RENDERED. TURNED AND REPOSITIONED Q 2 HRS. SUCTIONED TRACHE AND MOUTH PRN. WITH CONTINUOUS GTUBE FEEDING AT 60 ML/HR. VS CHECKED AND WNL THROUGH SHIFT. NO ACUTE CHANGE IN CONDITION NOTED. WILL ENDORSE TO AM RN FOR CHANTEL.
--- NOTE | 2016-12-20 07:40 | NUR ---
RN NOTES: PT ON BED, AWAKE ABLE TO TRACK WITH EYES, ACKNOWLEDGES PRESENCE, TOLERATED MECH VENT SETTING WELL, ON CONTINUOUS PULSE OXIMETRY SPO2 RANGING 98-100%. ON SINUS RHYTHM WITH PVC HR 75. APPEARS CALM AND COMFORTABLE, NOT IN APPARENT DISTRESS. SUCTION PT PRN. RCW HD CATH REMAINS IN PLACED, WITH C/D/I DRESSING. REMAINS ON G TUBE FEEDING, WITH ABDOMEN SOFT TO TOUCH AND ACTIVE BOWEL SOUND NOTED. RIGHT WRIST IV ACCESS REMAINS PATENT AND FLUSHING WELL, ON HL. BLE AND BUE KEPT OFFLOADED. VS REMAINS STABLE, NEEDS ATTENDED. SAFETY PRECAUTIONS FOR FALL REMAINS ENGAGED, CALL LIGHT IN REACH, WILL CONTINUE TO MONITOR
[2016-12-20 08:00] VITALS: BP 115/66
[2016-12-20] MEDS: LACTOBACILLUS RHAMNOSUS GG 1 EACH CAP.SPRINK GT SCH ×2 (09:49→16:52)
[2016-12-20] MEDS: FOLIC ACID 1 MG TABLET GT SCH (09:49)
[2016-12-20] MEDS: MULTIVITAMINS W-MINERALS 1 TAB TABLET GT SCH (09:49)
[2016-12-20] MEDS: PANTOPRAZOLE 40 MG/PACK PACK GT SCH ×2 (09:49→21:11)
[2016-12-20] MEDS: VIT B CMPLX 3/FA/VIT C/BIOTIN 1 TAB TABLET GT SCH (09:49)
[2016-12-20] MEDS: FLUDROCORTISONE 0.1 MG TABLET GT SCH (09:49)
[2016-12-20] MEDS: CYANOCOBALAMIN 500 MCG TABLET GT SCH (09:50)
[2016-12-20] MEDS: predniSONE 20 MG TABLET GT SCH (09:51)
[2016-12-20] MEDS: INSULIN DETEMIR 100 UNIT/ML CARTRIDGE SQ SCH ×2 (09:52→22:00)
[2016-12-20] MEDS: Z GUARD REMEDY 2 OZ OINT TP SCH ×2 (09:55→17:39)
[2016-12-20] MEDS: NYSTATIN CREAM 15 GM TUBE TP SCH ×2 (09:55→17:38)
[2016-12-20 11:16] LABS: BASOPHILS % (AUTO) 0.2 % (0.0-2.0); EOSINOPHILS # (AUTO) 0.1 /CMM (0.0-0.7); EOSINOPHILS % (AUTO) 0.8 % (0.0-6.0); HEMATOCRIT 25 % (39-51); HEMOGLOBIN 8.2 g/dL (13.5-17.5); LYMPHOCYTES # (AUTO) 0.7 /CMM (0.8-4.8); LYMPHOCYTES % (AUTO) 5.7 % (20.0-44.0); MEAN CORPUSCULAR HEMOGLOBIN 35 PG (26.0-33.0); MEAN CORPUSCULAR HGB CONC 33 g/dl (31.0-36.0); MEAN CORPUSCULAR VOLUME 106 fL (80-96); MONOCYTES # (AUTO) 0.5 /CMM (0.1-1.30); MONOCYTES % (AUTO) 4.4 % (2.0-12.0); NEUTROPHILS # (AUTO) 10.3 /CMM (1.8-8.9); NEUTROPHILS % (AUTO) 88.9 % (43.0-81.0); PLATELET COUNT (AUTO) 319 /CMM (150-450); RDW COEFFICIENT OF VARIATION 15.3 (11.5-15.0); RED BLOOD CELL COUNT(AUTO) 2.37 MIL/uL (4.5-6.0); WHITE BLOOD COUNT (AUTO) 11.6 K/uL (4.3-11.0)
[2016-12-20 12:00] VITALS: BP 153/84
[2016-12-20 12:00] LABS: BAND % (MANUAL) 2 % (0.0-5.0); LYMPHOCYTES % (MANUAL) 10 % (16-48); MONOCYTES % (MANUAL) 2 % (0-11.0); NEUTROPHILS % (MANUAL) 85 (42-76)
[2016-12-20 12:01] LABS: ANISOCYTOSIS 1+; METAMYELOCYTES % 1 % (0-0); PLATELET ESTIMATE ADEQUATE
[2016-12-20 12:31] LABS: ALBUMIN 2.2 g/dL (3.4-5.0); BILIRUBIN,TOTAL 0.6 mg/dL (0.2-1.0); CALCIUM, SERUM 9.2 mg/dL (8.5-10.1); CREATININE 3.3 mg/dL (0.6-1.3); MAGNESIUM 1.9 mg/dL (1.8-2.4); PHOSPHORUS 4.8 mg/dL (2.5-4.9); POTASSIUM 4.2 mmol/L (3.5-5.1); TOTAL PROTEIN, SERUM 6.2 g/dL (6.4-8.2)
[2016-12-20 16:00] VITALS: BP 105/60
--- NOTE | 2016-12-20 19:04 | NUR ---
RN NOTES: PT ON BED, AWAKE ABLE TO TRACK WITH EYES, ACKNOWLEDGES PRESENCE, TOLERATED MECH VENT SETTING WELL, ON CONTINUOUS PULSE OXIMETRY SPO2 RANGING 98-100%.ON TELEMETRY MONITORING. APPEARS CALM AND COMFORTABLE, NOT IN APPARENT DISTRESS. SUCTION PT PRN. RCW HD CATH REMAINS IN PLACED, WITH C/D/I DRESSING. REMAINS ON G TUBE FEEDING, WITH ABDOMEN SOFT TO TOUCH AND ACTIVE BOWEL SOUND NOTED. RIGHT WRIST IV ACCESS REMAINS PATENT AND FLUSHING WELL, ON SL. BLE AND BUE KEPT OFFLOADED. VS REMAINS STABLE, NEEDS ATTENDED. SAFETY PRECAUTIONS FOR FALL REMAINS ENGAGED, CALL LIGHT IN REACH, WILL CONTINUE TO MONITOR AND ENDORSE TO NEXT SHIFT CONTINUITY OF CARE
--- NOTE | 2016-12-20 19:06 | NUR ---
RN NOTES PAGED DR. ZAVALA TO CLARIFY EPOGEN ORDERS WITH HD, WILL AWAIT CALL AND CONTINUE MONITOR WILL ENDORSE TO NEXT SHIFT FOR FOLLOW UP
[2016-12-20] MEDS ORDERED: EPOETIN ALFA (10,000 UNIT) 10,000 UNIT/ML VIAL SQ ONE (19:30)
--- NOTE | 2016-12-20 19:30 | NUR ---
RN LIAISON OPENING NOTES: PATIENT IN BED, NON VERBAL, BUT OPENS EYES AND TRACKS. ON [facility] VENTILATION AT THE SETTINGS: TRACHE TUBE PORTEX#8, AC: 10, TV: 500, FIO2: 40%, PEEP:5, ON 100% O2 SATURATION. PATIENT HAS CONTINUOUS GTUBE FEEDING RUNNING AT RATE OF 60 ML/HR, NOTED NO RESIDUAL, PATIENT TOLERATING FEEDING WELL. PIV OVER R WRIST INTACT AND PATENT TO FLUSH. PROVIDED FOR COMFORT AND SAFETY. BED IN LOWEST AND LOCKED POSITION, SIDERAILS UP X3, HOB ELEVATED. ON TELE MONITORING AT SINUS RHYTHM AT RATE OF 60S. TURNED AND REPOSITIONED. WILL CONT TO MONITOR.
[2016-12-20 20:00] VITALS: BP 130/66
[2016-12-20] MEDS ORDERED: EPOETIN ALFA (2000 UNIT) 2,000 UNIT/ML VIAL ONE (21:02)
[2016-12-20] MEDS: *INSULIN REGULAR(HUMULIN R)HUM 100 UNIT/ML VIAL SQ PRN (22:02)
[2016-12-21] VITALS (7 sets, daily range): BP systolic 99–154; BP diastolic 58–85
[2016-12-21] MEDS: RENAL NOVASOURCE 1,000 ML BOTTLE GT PRN ×2 (00:40→19:01)
[2016-12-21] MEDS: LEVOTHYROXINE SODIUM 100 MCG TABLET GT SCH ×2 (05:32→09:18)
[2016-12-21] MEDS: FERROUS SULFATE UDC 300 MG/5 ML UDC GT SCH ×3 (05:32→21:53)
[2016-12-21] MEDS: BLOOD SUGAR DIAGNOSTIC 1 EACH STRIP VI SCH ×4 (06:45→21:53)
[2016-12-21] MEDS: INSULIN REGULAR, HUMAN 100 UNIT/ML 3 ML VIAL SQ PRN ×3 (06:52→17:33)
--- NOTE | 2016-12-21 07:04 | NUR ---
NAVAL POLICE COXS[employer]IN CLOSING NOTES: PT IN BED ASLEEP. PT WILL OPEN EYES FROM TIME TO TIME AND TRACK. PT NON VERBAL. PT ON MECHANICAL VENTILATION AT THE FF SETTINGS: TRACHEA TUBE PORTEX #8, AC: 10, TV: 500, FIO2: 40%, PEEP: 5, ON 100% 02 SAT. PT HAS CONTINUOUS G TUBE FEEDING AT 60ML/HR AND TOLERATED FEEDING WELL. NO RESIDUAL NOTED. BLOOD SUGAR WAS 270. PATIENT WAS GIVEN 9 UNITS OF INSULIN REGULAR. PIV OVER R WRIST #22 AND IS INTACT AND PATENT. KEPT CLEAN, DRY, AND COMFORTABLE. BED KEPT IN LOCKED, LOWEST POSITION, HOB ELEVATED, AND SIDE RAILS X2 UP. ON TELE MONITORING AT SINUS RHYTHM AT 75 WITH OCCASIONAL PVCS. WILL ENDORSE TO DAY SHIFT NURSE FOR CONTINUITY OF CARE.
--- NOTE | 2016-12-21 07:30 | NUR ---
ms rn received patient awake, nonverbal,vent dependent patient, no s/s of distress,g tube intact w/ feeding going on,hd catheter intact, will have hd today.
[2016-12-21 07:55] LABS: CALCIUM, SERUM 8.9 mg/dL (8.5-10.1); CREATININE 2.5 mg/dL (0.6-1.3)
[2016-12-21] MEDS: Z GUARD REMEDY 2 OZ OINT TP SCH ×2 (09:00→17:21)
[2016-12-21] MEDS: predniSONE 20 MG TABLET GT SCH (09:18)
[2016-12-21] MEDS: FLUDROCORTISONE 0.1 MG TABLET GT SCH (09:18)
[2016-12-21] MEDS: MULTIVITAMINS W-MINERALS 1 TAB TABLET GT SCH (09:18)
[2016-12-21] MEDS: VIT B CMPLX 3/FA/VIT C/BIOTIN 1 TAB TABLET GT SCH (09:18)
[2016-12-21] MEDS: FOLIC ACID 1 MG TABLET GT SCH (09:18)
[2016-12-21] MEDS: LACTOBACILLUS RHAMNOSUS GG 1 EACH CAP.SPRINK GT SCH ×2 (09:18→17:12)
[2016-12-21] MEDS: PANTOPRAZOLE 40 MG/PACK PACK GT SCH ×2 (09:19→21:53)
[2016-12-21] MEDS: CYANOCOBALAMIN 500 MCG TABLET GT SCH (09:19)
--- NOTE | 2016-12-21 09:20 | NUR ---
ms rn g tube feeding on, repositioned for comfort.
[2016-12-21] MEDS: INSULIN DETEMIR 100 UNIT/ML CARTRIDGE SQ SCH ×2 (09:43→21:57)
[2016-12-21] MEDS: NYSTATIN CREAM 15 GM TUBE TP SCH ×2 (09:44→17:17)
--- NOTE | 2016-12-21 16:20 | NUR ---
ms jesse hd done w/2400ml output,tolerated well.
[2016-12-21] MEDS: Z GUARD REMEDY 2 OZ OINT TP PRN (17:18)
--- NOTE | 2016-12-21 18:47 | NUR ---
ms rn on bed,no distress noted,all needs attended.
--- NOTE | 2016-12-21 19:30 | NUR ---
BUILDING ENERGY CONSULTANT NOTE RECEIVED PATIENT ASLEEP IN BED. EASILY AROUSABLE BY NAME. NO RESPIRATORY DISTRESS OR S/S OF PAIN NOTED. ON MECHANICAL VENTILATOR WITH SETTINGS IN PLACE. GTUBE RUNNING ORDERED. TUBE FLUSHES WELL. NO RESIDUAL NOTED. IV SITE INTACT WITH NO REDNESS OR INFILTRATION NOTED. HOB ELEVATED AT ALL TIMES. WILL TURN AND REPOSITION PATIENT EVERY TWO HOURS. SIDE RAILS UP, CALL LIGHT WITHIN REACH. WILL CONTINUE TO MONITOR.
--- NOTE | 2016-12-21 21:30 | NUR ---
[facility] WITH NOTED SETTINGS. VENT ALARM CHECKED AND AUDIBLE . VENT PLUGGED INTO RED OUTLET. TRACH SECURE IN AND IN PROPER POSITION. CUFF CHECKED ADJUSTER ELECTRICAL CONTACTS. SXN MODERATE AMOUNT OF YELLOWISH THICK SECRETIONS. AMBU BAG @ BEDSIDE. NO RESPIRATORY DISTRESS AT THIS TIME. WILL CONTINUE TO MONITOR.
[2016-12-21] MEDS: *INSULIN REGULAR(HUMULIN R)HUM 100 UNIT/ML VIAL SQ PRN (21:58)
--- NOTE | 2016-12-21 22:00 | NUR ---
CUT OUT PRESS OPERATOR NOTE BLOOD SUGAR 278. 6 UNITS OF REGULAR INSULIN GIVEN. WILL CONTINUE TO MONITOR.
[2016-12-22] VITALS (9 sets, daily range): BP systolic 103–137; BP diastolic 59–84
[2016-12-22] MEDS: FERROUS SULFATE UDC 300 MG/5 ML UDC GT SCH ×2 (05:15→13:08)
[2016-12-22] MEDS: BLOOD SUGAR DIAGNOSTIC 1 EACH STRIP VI SCH ×3 (06:35→18:36)
[2016-12-22] MEDS: INSULIN REGULAR, HUMAN 100 UNIT/ML 3 ML VIAL SQ PRN ×2 (06:37→13:15)
--- NOTE | 2016-12-22 06:40 | NUR ---
ADJUNCT WRITING INSTRUCTOR NOTE PATIENT STABLE. ON TELE WITH SR 78 WITH FIRST DEGREE AV BLOCK, PVC'S AND PAC'S. BLOOD SUGAR 208. 6 UNITS SLIDING SCALE GIVEN.
--- NOTE | 2016-12-22 06:42 | NUR ---
MACHINE I ENGRAVER NOTE WILL ENDORSE TO DAY SHIFT FOR CHANTEL.
[2016-12-22 07:40] LABS: CALCIUM, SERUM 8.8 mg/dL (8.5-10.1); CREATININE 2.6 mg/dL (0.6-1.3); POTASSIUM 4.6 mmol/L (3.5-5.1)
--- NOTE | 2016-12-22 08:00 | NUR ---
BANKRUPTCY PROCESSOR AM NOTES: PATIENT IN BED, NON VERBAL, BUT OPENS EYES AND TRACKS. ON [facility] VENTILATION AT THE SETTINGS: TRACHE TUBE PORTEX#8, AC: 10, TV: 500, FIO2: 40%, PEEP:5, ON 100% O2 SATURATION. PATIENT HAS CONTINUOUS GTUBE FEEDING RUNNING AT RATE OF 45 ML/HR, NOTED NO RESIDUAL,HOB ELEVATED WITH ASPIRATION PRECAUTIONS. PATIENT TOLERATING FEEDING WELL. PIV OVER R WRIST INTACT AND PATENT TO FLUSH. PROVIDED FOR COMFORT AND SAFETY. BED IN LOWEST AND LOCKED POSITION, SIDERAILS UP X3, HOB ELEVATED. ON TELE MONITORING AT SINUS RHYTHM AT RATE OF 79. TURNED AND REPOSITIONED. WILL CONT TO MONITOR.
[2016-12-22] MEDS: VIT B CMPLX 3/FA/VIT C/BIOTIN 1 TAB TABLET GT SCH (10:16)
[2016-12-22] MEDS: predniSONE 20 MG TABLET GT SCH (10:16)
[2016-12-22] MEDS: FOLIC ACID 1 MG TABLET GT SCH (10:16)
[2016-12-22] MEDS: LACTOBACILLUS RHAMNOSUS GG 1 EACH CAP.SPRINK GT SCH ×2 (10:16→18:06)
[2016-12-22] MEDS: MULTIVITAMINS W-MINERALS 1 TAB TABLET GT SCH (10:17)
[2016-12-22] MEDS: FLUDROCORTISONE 0.1 MG TABLET GT SCH (10:17)
[2016-12-22] MEDS: PANTOPRAZOLE 40 MG/PACK PACK GT SCH (10:17)
[2016-12-22] MEDS: CYANOCOBALAMIN 500 MCG TABLET GT SCH (10:18)
[2016-12-22] MEDS: INSULIN DETEMIR 100 UNIT/ML CARTRIDGE SQ SCH (10:24)
[2016-12-22] MEDS: Z GUARD REMEDY 2 OZ OINT TP PRN (10:25)
[2016-12-22] MEDS: Z GUARD REMEDY 2 OZ OINT TP SCH ×2 (10:25→18:37)
[2016-12-22] MEDS: NYSTATIN CREAM 15 GM TUBE TP SCH ×2 (10:26→18:41)
[2016-12-22] MEDS ORDERED: RENAL NOVASOURCE 1,000 ML BOTTLE GT PRN (12:17)
--- NOTE | 2016-12-22 18:07 | NUR ---
PT IS TO BE DISCHARGED TO [facility].REPORT CALLED IN TO JULIO CESAR MENDOZA OF [facility] CALLED AND WILL CAUSE A DELAY IN PICKING UP THE PT WHICH WILL BE AT 2030.DISCHARGE AND MED RECONCILIATION PAPERS HAVE BEEN PREPARED AND SIGNED.WILL ENDORSED TO NIGHT NURSE CARE.
[2016-12-22] MEDS: *INSULIN REGULAR(HUMULIN R)HUM 100 UNIT/ML VIAL SQ PRN (18:36)
--- NOTE | 2016-12-22 19:30 | NUR ---
PULP MACHINE OPERATOR INITIAL NOTES: RECEIVED REPORT FROM SIGRID Gay RN RN. PT ON BED, AWAKE, OPEN YES, RESPONSIVE, NON VERBAL, TRACHE MECH VENT DEPENDENT WITH THE FF SETTING: AC 10, TV 500 FIO2 40% PEEP 5, PORTEX 8, CONTINUOUS PULSE OX SHOWING 98-100% OXYGEN SATURATION. PT APPEARS CALM AND COMFORTABLE, NO FACIAL GRIMACE NOTED. PT IS ANURIC. PT HAS GTUBE FEEDING, ABDOMEN SOFT TO TOUCH, WITH HYPOACTIVE BOWEL SOUND NOTED UPON AUSCULTATION. PT RECEIVING NOVASOURCE RENAL AT 45ML/HR. NOTED GENERALIZED EDEMA, BLE AND BUE OFFLOADED. PT ON ISOFLEX MATTRESS. PT FOR DC AT 2100, ALL DC PAPERWORKS COMPLETED BY DAY RN, POICTURES TAKEN AND REPORT GIVEN TO RN IN [facility]. SAFETY PRECAUTIONS FOR FALL INITIATED CALL LIGHT IN REACH, WILL CONTINUE TO MONITOR
--- NOTE | 2016-12-22 21:10 | NUR ---
MS RN NOTES: ADMINISTERED NEW BAG OF CHIEF REVENUE OFFICER DILAUDID ORDER IS DILAUDID MDV 30MG IN IV CONCENTRATION 1MG/ML, RT = NONE, NO BASAL RATE , UP/DW =NONE, CHIEF REVENUE OFFICER DOSE 0.2 MG, LOCKOUT 10MINS, 4HRMAX IS 3MG, WITNESSED COSIGNED WITH ANOTHER RN FATIMAH, PT ON CONTINUOS PULSE OX 98-100% RR 18, C/O 10/10 PAIN ON LEFT KNEE. VS TAKEN AND RECORDED. WASTE FROM PREVIOUS BAG IS 15ML. Addendum: 12/22/16 at 2787 by ADRY ORTEGA RN DISREGARD ABOVE DOCUMENTATION, WRONG ENTRY
--- NOTE | 2016-12-22 22:07 | NUR ---
DC NOTES: [facility]NA[facility]IE SUPERINTENDENT PT, REPORT GIVEN TO DINING ROOM MANAGER, REPORT ALSO GIVEN TO [facility] RN NAME IS REJI, FEEDING DISCONNECTED, GTUBE FLUSHED WITH 150CC OF WATER. GTUBE CLAMPED. RCW HD CATH REMAINS IN PLACED. DC PAPER WORKS HANDED TO PARAMEDICS. VS TAKEN AND RECORDED. WRISTBAND AND IV REMOVED. PT LEFT ACCOMPANIED BY PARAMEDICS IN STABLE CONDITION.
== END 2016-12-22 22:05 | DRG 207 ==
LOC: ER 13:17 → TELE 15:57
PROVIDERS: ADMIT Internal Medicine Nephrology; ATTEND Internal Medicine Nephrology
PROC: 5A1955Z Respiratory Ventilation, Greater than 96 Consecutive Hours (ICD-10-PCS; principal; 2016-12-11)
PROC: 5A1D60Z (ICD-10-PCS; 2016-12-11)
DX: J15.9 Unspecified bacterial pneumonia (principal); N18.6 End stage renal disease; G92 Toxic encephalopathy; I13.11 Hypertensive heart and chronic kidney disease without heart failure, with stage 5 chronic kidney disease, or end stage renal disease; J96.11 Chronic respiratory failure with hypoxia; J81.1 Chronic pulmonary edema; Z99.11 Dependence on respirator [ventilator] status; E27.40 Unspecified adrenocortical insufficiency; E11.22 Type 2 diabetes mellitus with diabetic chronic kidney disease; Z99.2 Dependence on renal dialysis; Z79.899 Other long term (current) drug therapy; R13.10 Dysphagia, unspecified; E03.9 Hypothyroidism, unspecified; D63.8 Anemia in other chronic diseases classified elsewhere; E83.52 Hypercalcemia; E66.9 Obesity, unspecified; Z68.37 Body mass index [BMI] 37.0-37.9, adult; D72.829 Elevated white blood cell count, unspecified; E83.39 Other disorders of phosphorus metabolism; E87.70 Fluid overload, unspecified; Z93.1 Gastrostomy status
CPT/HCPCS: 31720; 36415; 36600; 70450-TC; 71010-TC; 80048-TC; 80053-TC; 80076-TC; 80150; 80202-TC; 82140-TC; 82330; 82962-TC; 83605-TC; 83735-TC; 83970; 84100-TC; 84443-TC; 84484-TC; 85025-TC; 85730-TC; 87040-TC; 87081-TC; 90935-TC; 94002-TC; 94003-TC; A4216; A4606; A4623; A9563; J0278; J0692; J0885; J1644; J1815; J2430; J2543; J3370; J7040; J7050; J7060; P9047; Z7610

== ENCOUNTER 2017-04-02 17:56 | Inpatient (IN) | payer MEDICARE, OTHER ==
[~2017-04-02] VITALS: Ht 172.7 cm; Wt 106.1 kg
[~2017-04-02 17:56] MED LIST: ACET650S26 GT; BETA1TAB4 GT; BISA10SU8 RC; BLOO-668 IN; CYAN500T4 GT; DARB25DI SQ; ERGO50003 GT; FERR300L GT; FLUD0.1T3 GT; FOLI0.8T2 GT; FOLI1TAB16 GT; HEPA10009 SQ; INSU100I19 SQ; INSU100V27 SQ; LEVO100T9 GT; MIDO10TA GT; NUTR100037 GT; OMEP40CA37 GT; ONDA4TAB5 GT; PRED20TA GT; SIME80TA15 GT; TRAM50TA2 GT
[2017-04-02 18:28] VITALS: BP 109/67
[2017-04-02 18:55] LABS: BASOPHILS # (AUTO) 0.5 /CMM (0.0-0.2); BASOPHILS % (AUTO) 2.5 % (0.0-2.0); EOSINOPHILS % (AUTO) 0.2 % (0.0-6.0); HEMATOCRIT 36 % (39-51); HEMOGLOBIN 11.5 g/dL (13.5-17.5); LYMPHOCYTES % (AUTO) 5.3 % (20.0-44.0); MEAN CORPUSCULAR HEMOGLOBIN 34 PG (26.0-33.0); MEAN CORPUSCULAR HGB CONC 33 g/dl (31.0-36.0); MEAN CORPUSCULAR VOLUME 104 fL (80-96); MONOCYTES # (AUTO) 0.8 /CMM (0.1-1.30); MONOCYTES % (AUTO) 4.1 % (2.0-12.0); NEUTROPHILS # (AUTO) 16.1 /CMM (1.8-8.9); NEUTROPHILS % (AUTO) 87.9 % (43.0-81.0); PLATELET COUNT (AUTO) 325 /CMM (150-450); WHITE BLOOD COUNT (AUTO) 18.4 K/uL (4.3-11.0)
[2017-04-02 19:10] LABS: CALCIUM, SERUM 8.8 mg/dL (8.5-10.1); CARBON DIOXIDE 29 mmol/L (21-32); CHLORIDE 100 mmol/L (98-107); CREATININE 2.1 mg/dL (0.6-1.3); GLUCOSE 243 mg/dL (74-106); POTASSIUM 4.1 mmol/L (3.5-5.1); SODIUM SERUM 138 mmol/L (136-145); UREA NITROGEN, BLOOD 33 mg/dL (7-18)
[2017-04-02 19:15] LABS: ALANINE AMINOTRANSFERASE 42 U/L (12-78); ALBUMIN 2.8 g/dL (3.4-5.0); ALKALINE PHOSPHATASE 184 U/L (46-116); ASPARTATE AMINOTRANSFERASE 25 U/L (15-37); BILIRUBIN,DIRECT 0.1 mg/dL (0.0-0.2); BILIRUBIN,TOTAL 0.5 mg/dL (0.2-1.0); TOTAL PROTEIN, SERUM 7.1 g/dL (6.4-8.2)
[2017-04-02 19:18] LABS: TROPONIN I 0.125 ng/mL (0.00-0.056)
[2017-04-02 20:11] VITALS: BP 133/69
[2017-04-02 20:29] LABS: APPEARANCE,URINE Turbid (CLEAR); BILIRUBIN,URINE Negative (NEGATIVE); BLOOD, URINE Large Ery/uL (NEGATIVE); COLOR,URINE Light yellow (YELLOW); KETONES,URINE Negative (NEGATIVE); LEUKOCYTE ESTERASE ,URINE Large (NEGATIVE); NITRITE, URINE Negative (NEGATIVE); PROTEIN,URINE >=300 mg/dl (NEGATIVE); UGLUCOSE Negative (NEGATIVE); UROBILINOGEN,URINE 0.2 EU/dL (0.2)
[2017-04-02 20:34] LABS: BACTERIA,URINE Many /HPF (None Seen); RBC,URINE TOO NUMEROUS TO COUN /HPF (0-2); SQUAMOUS EPITHELIAL CELL,UR Few /HPF (None Seen); WBC,URINE TOO NUMEROUS TO COUN /HPF (0-3)
[2017-04-02] MEDS ORDERED: AMIN30LI2 GT (20:59)
[2017-04-02] MEDS ORDERED: CEFTRIAXONE 1 G in IV D5W 50 ML IV ONE (21:00)
[2017-04-02] MEDS ORDERED: VANCOMYCIN 1 GM in IV D5W 250 ML IV ONE (21:00)
[2017-04-02] MEDS ORDERED: CEFTRIAXONE 1GM BAG (ER ONLY) 50 ML IV ONE (21:06)
[2017-04-02] MEDS ORDERED: VANCOMYCIN 1 GM VIAL ONE (21:07)
[2017-04-02 21:21] LABS: BAND % (MANUAL) 8 % (0.0-5.0); BASOPHILS % (MANUAL) 0 % (0.0-2.0); EOSINOPHILS % (MANUAL) 0 % (0-4); LYMPHOCYTES % (MANUAL) 5 % (16-48); METAMYELOCYTES % 1 % (0-0); MONOCYTES % (MANUAL) 4 % (0-11.0); NEUTROPHILS % (MANUAL) 82 (42-76)
[2017-04-02] MEDS ORDERED: IV D5/ 0.9% NACL 1,000 ML IV PRN (23:30)
[2017-04-02] MEDS ORDERED: DEXTROSE 50%-WATER 50 ML DISP.SYRIN IV PRN (23:30)
[2017-04-02] MEDS ORDERED: RENAL NOVASOURCE 1,000 ML BOTTLE GT PRN (23:30)
[2017-04-03] VITALS (7 sets, daily range): BP systolic 93–119; BP diastolic 48–63
[2017-04-03] MEDS ORDERED: PIPERACILLIN /TAZOBACTAM 2.25 G VIAL IV ONE (00:18)
[2017-04-03] MEDS: BLOOD SUGAR DIAGNOSTIC 1 EACH STRIP IN SCH ×4 (00:20→17:08)
[2017-04-03] MEDS: INSULIN REGULAR, HUMAN 100 UNIT/ML 3 ML VIAL SQ PRN ×4 (00:22→17:10)
[2017-04-03] MEDS ORDERED: PIPERACILLIN /TAZOBACTAM 2.25 G in IV D5W 50 ML IV SCH (00:30)
[2017-04-03] MEDS ORDERED: TRAMADOL HCL 50 MG TABLET ONE (03:42)
[2017-04-03] MEDS ORDERED: TRAMADOL HCL 50 MG TABLET GT PRN ×2 (04:00→13:00)
[2017-04-03 06:30] LABS: BASOPHILS # (AUTO) 0.1 /CMM (0.0-0.2); BASOPHILS % (AUTO) 0.3 % (0.0-2.0); EOSINOPHILS # (AUTO) 0.1 /CMM (0.0-0.7); EOSINOPHILS % (AUTO) 0.8 % (0.0-6.0); HEMATOCRIT 35 % (39-51); LYMPHOCYTES # (AUTO) 1.2 /CMM (0.8-4.8); LYMPHOCYTES % (AUTO) 7.4 % (20.0-44.0); MEAN CORPUSCULAR HEMOGLOBIN 36 PG (26.0-33.0); MEAN CORPUSCULAR HGB CONC 34 g/dl (31.0-36.0); MEAN CORPUSCULAR VOLUME 105 fL (80-96); MONOCYTES # (AUTO) 0.8 /CMM (0.1-1.30); MONOCYTES % (AUTO) 5.2 % (2.0-12.0); NEUTROPHILS # (AUTO) 13.9 /CMM (1.8-8.9); NEUTROPHILS % (AUTO) 86.3 % (43.0-81.0); PLATELET COUNT (AUTO) 297 /CMM (150-450); RDW COEFFICIENT OF VARIATION 15.1 (11.5-15.0); RED BLOOD CELL COUNT(AUTO) 3.38 MIL/uL (4.5-6.0); WHITE BLOOD COUNT (AUTO) 16.1 K/uL (4.3-11.0)
[2017-04-03 08:06] LABS: B-TYPE NATRIURETIC PEPTIDE 1989 PG/ML (0-125)
[2017-04-03] MEDS ORDERED: IV NS 0.9% 1,000 ML IV PRN (09:59)
[2017-04-03] MEDS: GENTAMICIN OPTH OINT 0.3% 3.5 G TUBE EACHEYE SCH ×3 (13:00→17:08)
[2017-04-03] MEDS ORDERED: DEXTROSE 50%-WATER 50 ML DISP.SYRIN IV PRN (13:00)
[2017-04-03] MEDS ORDERED: MIDODRINE HCL (5MG) 5 MG TABLET PO PRN (13:00)
[2017-04-03] MEDS ORDERED: SIMETHICONE 80 MG TAB.CHEW GT PRN (13:00)
[2017-04-03] MEDS: FERROUS SULFATE UDC 300 MG/5 ML UDC GT SCH ×2 (13:00→21:00)
[2017-04-03] MEDS ORDERED: BISACODYL SUPP (10 MG) 10 MG/SUPP.RECT SUPP.RECT RC PRN (13:00)
[2017-04-03] MEDS ORDERED: LEVOFLOXACIN 750 MG /D5W 150ML 750 MG in PREMIX 1 EA IV SCH ×2 (13:00→14:00)
[2017-04-03] MEDS ORDERED: INSULIN REGULAR, HUMAN 100 UNIT/ML 3 ML VIAL SQ PRN (13:00)
[2017-04-03] MEDS ORDERED: ACETAMINOPHEN 650 MG/20.3 ML UDC GT PRN (13:00)
[2017-04-03 13:54] LABS: TROPONIN I 0.086 ng/mL (0.00-0.056)
[2017-04-03] MEDS ORDERED: DIATR MEGLU/DIATRIZOATE SODIUM 30 ML BOTTLE (GASTROGRAPHIN) ONE (14:42)
[2017-04-03] MEDS: PIPERACILLIN /TAZOBACTAM 2.25 G in IV D5W 50 ML IV SCH ×2 (16:18→21:57)
[2017-04-03] MEDS ORDERED: PANTOPRAZOLE 40 MG/PACK PACK GT SCH (16:30)
[2017-04-03] MEDS ORDERED: BLOOD SUGAR DIAGNOSTIC 1 EACH STRIP IN SCH (18:00)
[2017-04-03] MEDS: HEPARIN SODIUM, PORCINE 5000 UNITS/1 ML VIAL SQ SCH (21:59)
[2017-04-03] MEDS: INSULIN DETEMIR 100 UNIT/ML CARTRIDGE SQ SCH (22:00)
[2017-04-03] MEDS: IV D5/ 0.9% NACL 1,000 ML IV PRN (22:46)
[2017-04-04] VITALS: BP 109/72
[2017-04-04] MEDS: BLOOD SUGAR DIAGNOSTIC 1 EACH STRIP IN SCH ×4 (00:39→18:55)
[2017-04-04] MEDS: INSULIN REGULAR, HUMAN 100 UNIT/ML 3 ML VIAL SQ PRN ×2 (00:45→05:35)
[2017-04-04 04:00] VITALS: BP 101/43
[2017-04-04] MEDS: FERROUS SULFATE UDC 300 MG/5 ML UDC GT SCH ×3 (05:00→21:00)
[2017-04-04] MEDS: PIPERACILLIN /TAZOBACTAM 2.25 G in IV D5W 50 ML IV SCH ×3 (05:35→21:31)
[2017-04-04] MEDS: LEVOTHYROXINE SODIUM 100 MCG TABLET GT SCH (05:36)
[2017-04-04 06:39] LABS: BASOPHILS # (AUTO) 0.1 /CMM (0.0-0.2); BASOPHILS % (AUTO) 0.5 % (0.0-2.0); EOSINOPHILS # (AUTO) 0.2 /CMM (0.0-0.7); EOSINOPHILS % (AUTO) 1.2 % (0.0-6.0); HEMATOCRIT 31 % (39-51); HEMOGLOBIN 10.4 g/dL (13.5-17.5); LYMPHOCYTES # (AUTO) 0.8 /CMM (0.8-4.8); LYMPHOCYTES % (AUTO) 6.3 % (20.0-44.0); MEAN CORPUSCULAR HEMOGLOBIN 35 PG (26.0-33.0); MEAN CORPUSCULAR HGB CONC 34 g/dl (31.0-36.0); MEAN CORPUSCULAR VOLUME 104 fL (80-96); MONOCYTES # (AUTO) 1.1 /CMM (0.1-1.30); MONOCYTES % (AUTO) 7.9 % (2.0-12.0); NEUTROPHILS # (AUTO) 11.2 /CMM (1.8-8.9); NEUTROPHILS % (AUTO) 84.1 % (43.0-81.0); PLATELET COUNT (AUTO) 255 /CMM (150-450); RDW COEFFICIENT OF VARIATION 15.2 (11.5-15.0); RED BLOOD CELL COUNT(AUTO) 2.95 MIL/uL (4.5-6.0); WHITE BLOOD COUNT (AUTO) 13.3 K/uL (4.3-11.0)
[2017-04-04 07:07] LABS: CALCIUM, SERUM 9.1 mg/dL (8.5-10.1); CARBON DIOXIDE 29 mmol/L (21-32); CHLORIDE 101 mmol/L (98-107); CREATININE 3.7 mg/dL (0.6-1.3); GLUCOSE 172 mg/dL (74-106); MAGNESIUM 1.9 mg/dL (1.8-2.4); PHOSPHORUS 3.9 mg/dL (2.5-4.9); POTASSIUM 3.1 mmol/L (3.5-5.1); SODIUM SERUM 144 mmol/L (136-145); UREA NITROGEN, BLOOD 57 mg/dL (7-18)
[2017-04-04 08:00] VITALS: BP 111/79
[2017-04-04] MEDS: FLUDROCORTISONE 0.1 MG TABLET GT SCH (08:38)
[2017-04-04] MEDS: VIT B CMPLX 3/FA/VIT C/BIOTIN 1 TAB TABLET GT SCH (08:38)
[2017-04-04] MEDS: predniSONE 20 MG TABLET GT SCH (08:38)
[2017-04-04] MEDS: PROSOURCE / PROSTAT (PYXIS) 30 ML UDC GT SCH (08:39)
[2017-04-04] MEDS: HEPARIN SODIUM, PORCINE 5000 UNITS/1 ML VIAL SQ SCH ×2 (08:39→21:00)
[2017-04-04 08:53] LABS: BILIRUBIN,DIRECT 0.2 mg/dL (0.0-0.2); BILIRUBIN,TOTAL 0.6 mg/dL (0.2-1.0)
[2017-04-04] MEDS: GENTAMICIN OPTH OINT 0.3% 3.5 G TUBE EACHEYE SCH ×3 (09:03→17:00)
[2017-04-04] MEDS: INSULIN DETEMIR 100 UNIT/ML CARTRIDGE SQ SCH ×2 (09:03→21:48)
[2017-04-04 12:00] VITALS: BP 121/71
[2017-04-04 16:00] VITALS: BP 100/54
[2017-04-04] MEDS ORDERED: ALBUMIN 25% 25 GM in PREMIX 1 EA IV ONE (16:30)
[2017-04-04 20:00] VITALS: BP 96/59
[2017-04-04] MEDS ORDERED: LIDOCAINE 1% INJ 50 ML MDV IJ ONE (20:00)
[2017-04-04] MEDS: FAMOTIDINE/PF INJ 20 MG/2 ML VIAL IV SCH (21:31)
[2017-04-04] MEDS: IV D5/ 0.9% NACL 1,000 ML IV PRN (21:41)
[2017-04-05] VITALS: BP 94/52
[2017-04-05] MEDS: BLOOD SUGAR DIAGNOSTIC 1 EACH STRIP IN SCH ×4 (00:32→17:04)
[2017-04-05 04:00] VITALS: BP 100/57
[2017-04-05] MEDS: FERROUS SULFATE UDC 300 MG/5 ML UDC GT SCH ×3 (05:00→21:00)
[2017-04-05] MEDS: PIPERACILLIN /TAZOBACTAM 2.25 G in IV D5W 50 ML IV SCH ×2 (05:29→12:54)
[2017-04-05] MEDS: LEVOTHYROXINE SODIUM 100 MCG TABLET GT SCH (05:32)
[2017-04-05] MEDS: INSULIN REGULAR, HUMAN 100 UNIT/ML 3 ML VIAL SQ PRN ×3 (05:32→17:16)
[2017-04-05 07:10] LABS: CALCIUM, SERUM 8.9 mg/dL (8.5-10.1); CARBON DIOXIDE 31 mmol/L (21-32); CHLORIDE 105 mmol/L (98-107); CREATININE 2.7 mg/dL (0.6-1.3); GLUCOSE 146 mg/dL (74-106); MAGNESIUM 1.9 mg/dL (1.8-2.4); PHOSPHORUS 3.3 mg/dL (2.5-4.9); POTASSIUM 4.6 mmol/L (3.5-5.1); SODIUM SERUM 146 mmol/L (136-145); UREA NITROGEN, BLOOD 30 mg/dL (7-18)
[2017-04-05 07:27] LABS: BASOPHILS # (AUTO) 0.1 /CMM (0.0-0.2); BASOPHILS % (AUTO) 0.7 % (0.0-2.0); EOSINOPHILS # (AUTO) 0.2 /CMM (0.0-0.7); EOSINOPHILS % (AUTO) 1.2 % (0.0-6.0); HEMATOCRIT 29 % (39-51); HEMOGLOBIN 9.8 g/dL (13.5-17.5); LYMPHOCYTES # (AUTO) 1.3 /CMM (0.8-4.8); LYMPHOCYTES % (AUTO) 10.5 % (20.0-44.0); MEAN CORPUSCULAR HEMOGLOBIN 35 PG (26.0-33.0); MEAN CORPUSCULAR HGB CONC 33 g/dl (31.0-36.0); MEAN CORPUSCULAR VOLUME 104 fL (80-96); MONOCYTES # (AUTO) 1.7 /CMM (0.1-1.30); MONOCYTES % (AUTO) 13.5 % (2.0-12.0); NEUTROPHILS # (AUTO) 9.3 /CMM (1.8-8.9); NEUTROPHILS % (AUTO) 74.1 % (43.0-81.0); PLATELET COUNT (AUTO) 228 /CMM (150-450); RDW COEFFICIENT OF VARIATION 15.7 (11.5-15.0); RED BLOOD CELL COUNT(AUTO) 2.81 MIL/uL (4.5-6.0); WHITE BLOOD COUNT (AUTO) 12.5 K/uL (4.3-11.0)
[2017-04-05 08:00] VITALS: BP 91/52
[2017-04-05] MEDS: GENTAMICIN OPTH OINT 0.3% 3.5 G TUBE EACHEYE SCH ×3 (08:51→17:04)
[2017-04-05] MEDS: FLUDROCORTISONE 0.1 MG TABLET GT SCH (08:52)
[2017-04-05] MEDS: predniSONE 20 MG TABLET GT SCH (08:52)
[2017-04-05] MEDS: VIT B CMPLX 3/FA/VIT C/BIOTIN 1 TAB TABLET GT SCH (08:52)
[2017-04-05] MEDS: INSULIN DETEMIR 100 UNIT/ML CARTRIDGE SQ SCH ×2 (08:53→21:37)
[2017-04-05] MEDS: PROSOURCE / PROSTAT (PYXIS) 30 ML UDC GT SCH (08:53)
[2017-04-05] MEDS: FAMOTIDINE/PF INJ 20 MG/2 ML VIAL IV SCH ×2 (08:53→20:04)
[2017-04-05] MEDS: HEPARIN SODIUM, PORCINE 5000 UNITS/1 ML VIAL SQ SCH ×2 (08:53→20:05)
[2017-04-05] MEDS ORDERED: TPN/PPN PER PHARMACY IV PRN (10:00)
[2017-04-05 12:00] VITALS: BP 105/57
[2017-04-05] MEDS ORDERED: ANESTHESIA TRAY IN PYXIS 1 EA TRAY MC ONE (12:05)
[2017-04-05] MEDS: HYDROGEL DRESSING 90 GM TUBE TP SCH (13:32)
[2017-04-05] MEDS ORDERED: FEE TPN 1 MIN EA MC ONE (14:19)
[2017-04-05] MEDS ORDERED: TPN BAG #1 IV PRN ×6 (14:30)
[2017-04-05] MEDS ORDERED: TPN BAG #2 IV PRN ×4 (14:30)
[2017-04-05] MEDS ORDERED: DOSING PER PHARMACY-AMIKACI IV XX PRN (15:00)
[2017-04-05] MEDS: IV D5/ 0.9% NACL 1,000 ML IV PRN (15:27)
[2017-04-05] MEDS ORDERED: FEE PK DOSING 1 MIN EA MC ONE (15:28)
[2017-04-05 16:00] VITALS: BP 95/47
[2017-04-05] MEDS: LEVOFLOXACIN (250MG) 250 MG TABLET GT SCH (16:00)
[2017-04-05] MEDS ORDERED: AMIKACIN 600 MG in IV D5W 100 ML IV ONE (17:00)
[2017-04-05] MEDS: CLOTRIMAZOLE 1% 15 GM TUBE TP SCH (17:04)
[2017-04-05 20:00] VITALS: BP 107/63
[2017-04-06] VITALS (7 sets, daily range): BP systolic 89–109; BP diastolic 44–57
[2017-04-06] MEDS: BLOOD SUGAR DIAGNOSTIC 1 EACH STRIP IN SCH ×4 (00:01→17:14)
[2017-04-06] MEDS: INSULIN REGULAR, HUMAN 100 UNIT/ML 3 ML VIAL SQ PRN ×4 (00:03→17:55)
[2017-04-06] MEDS: FERROUS SULFATE UDC 300 MG/5 ML UDC GT SCH ×3 (04:51→20:57)
[2017-04-06] MEDS ORDERED: AMIKACIN 500 MG in IV D5W 100 ML IV PRN (06:00)
[2017-04-06] MEDS: LEVOTHYROXINE SODIUM 100 MCG TABLET GT SCH (06:30)
[2017-04-06 07:12] LABS: BASOPHILS % (AUTO) 0.2 % (0.0-2.0); EOSINOPHILS # (AUTO) 0.2 /CMM (0.0-0.7); EOSINOPHILS % (AUTO) 1.8 % (0.0-6.0); HEMATOCRIT 30 % (39-51); HEMOGLOBIN 10.2 g/dL (13.5-17.5); LYMPHOCYTES # (AUTO) 1.1 /CMM (0.8-4.8); LYMPHOCYTES % (AUTO) 8.9 % (20.0-44.0); MEAN CORPUSCULAR HEMOGLOBIN 36 PG (26.0-33.0); MEAN CORPUSCULAR HGB CONC 34 g/dl (31.0-36.0); MEAN CORPUSCULAR VOLUME 105 fL (80-96); MONOCYTES # (AUTO) 1.6 /CMM (0.1-1.30); MONOCYTES % (AUTO) 13.1 % (2.0-12.0); NEUTROPHILS # (AUTO) 9.3 /CMM (1.8-8.9); PLATELET COUNT (AUTO) 239 /CMM (150-450); RDW COEFFICIENT OF VARIATION 15.6 (11.5-15.0); RED BLOOD CELL COUNT(AUTO) 2.84 MIL/uL (4.5-6.0); WHITE BLOOD COUNT (AUTO) 12.2 K/uL (4.3-11.0)
[2017-04-06 07:44] LABS: CALCIUM, SERUM 9.3 mg/dL (8.5-10.1); CARBON DIOXIDE 26 mmol/L (21-32); CHLORIDE 105 mmol/L (98-107); CREATININE 3.9 mg/dL (0.6-1.3); GLUCOSE 245 mg/dL (74-106); POTASSIUM 3.7 mmol/L (3.5-5.1); SODIUM SERUM 145 mmol/L (136-145); UREA NITROGEN, BLOOD 44 mg/dL (7-18)
[2017-04-06 08:16] LABS: TRIGLYCERIDES 114 mg/dL (30-150)
[2017-04-06] MEDS: VIT B CMPLX 3/FA/VIT C/BIOTIN 1 TAB TABLET GT SCH (08:17)
[2017-04-06] MEDS: FLUDROCORTISONE 0.1 MG TABLET GT SCH (08:17)
[2017-04-06] MEDS: PROSOURCE / PROSTAT (PYXIS) 30 ML UDC GT SCH (08:18)
[2017-04-06] MEDS: predniSONE 20 MG TABLET GT SCH (08:18)
[2017-04-06] MEDS ORDERED: FLUCONAZOLE (100 MG) 100 MG TABLET PO SCH (09:00)
[2017-04-06] MEDS: GENTAMICIN OPTH OINT 0.3% 3.5 G TUBE EACHEYE SCH ×4 (09:00→17:14)
[2017-04-06] MEDS: FAMOTIDINE/PF INJ 20 MG/2 ML VIAL IV SCH ×2 (09:08→20:53)
[2017-04-06] MEDS: HEPARIN SODIUM, PORCINE 5000 UNITS/1 ML VIAL SQ SCH ×2 (09:09→20:57)
[2017-04-06] MEDS: HYDROGEL DRESSING 90 GM TUBE TP SCH (09:10)
[2017-04-06] MEDS: CLOTRIMAZOLE 1% 15 GM TUBE TP SCH ×2 (09:10→17:14)
[2017-04-06] MEDS: INSULIN DETEMIR 100 UNIT/ML CARTRIDGE SQ SCH ×2 (09:10→21:07)
[2017-04-06] MEDS: MUPIROCIN OINT 2% 22 GM TUBE SCH ×3 (09:30→21:00)
[2017-04-06 09:44] LABS: BAND % (MANUAL) 5 % (0.0-5.0); NEUTROPHILS % (MANUAL) 69 (42-76)
[2017-04-06 09:45] LABS: EOSINOPHILS % (MANUAL) 2 % (0-4); LYMPHOCYTES % (MANUAL) 10 % (16-48); MONOCYTES % (MANUAL) 14 % (0-11.0)
[2017-04-06] MEDS: LEVOFLOXACIN (250MG) 250 MG TABLET GT SCH (16:00)
[2017-04-06] MEDS ORDERED: TPN BAG #3 IV PRN ×7 (20:00)
[2017-04-06] MEDS ORDERED: ACETAMINOPHEN 650 MG/SUPP.RECT RC PRN (22:00)
[2017-04-06] MEDS ORDERED: LEVOFLOXACIN 250 MG /D5W 50 ML 250 MG in PREMIX 1 EA IV SCH (22:00)
[2017-04-06] MEDS ORDERED: LEVOFLOXACIN 250 MG /D5W 50 ML 50 ML IV ONE (22:41)
[2017-04-06] MEDS ORDERED: ACETAMINOPHEN 650 MG/SUPP.RECT RC ONE (22:41)
[2017-04-07] VITALS: BP 111/51
[2017-04-07] MEDS: BLOOD SUGAR DIAGNOSTIC 1 EACH STRIP IN SCH ×4 (00:08→17:35)
[2017-04-07] MEDS: INSULIN REGULAR, HUMAN 100 UNIT/ML 3 ML VIAL SQ PRN ×4 (00:12→17:42)
[2017-04-07 04:00] VITALS: BP 101/80
[2017-04-07] MEDS: FERROUS SULFATE UDC 300 MG/5 ML UDC GT SCH ×3 (05:00→21:00)
[2017-04-07] MEDS: LEVOTHYROXINE SODIUM 100 MCG TABLET GT SCH (06:24)
[2017-04-07 06:49] LABS: BASOPHILS # (AUTO) 0.1 /CMM (0.0-0.2); BASOPHILS % (AUTO) 0.7 % (0.0-2.0); EOSINOPHILS # (AUTO) 0.2 /CMM (0.0-0.7); EOSINOPHILS % (AUTO) 1.7 % (0.0-6.0); HEMATOCRIT 30 % (39-51); HEMOGLOBIN 10.2 g/dL (13.5-17.5); LYMPHOCYTES # (AUTO) 1.2 /CMM (0.8-4.8); LYMPHOCYTES % (AUTO) 9.5 % (20.0-44.0); MEAN CORPUSCULAR HEMOGLOBIN 35 PG (26.0-33.0); MEAN CORPUSCULAR HGB CONC 34 g/dl (31.0-36.0); MEAN CORPUSCULAR VOLUME 105 fL (80-96); MONOCYTES # (AUTO) 1.3 /CMM (0.1-1.30); MONOCYTES % (AUTO) 10.2 % (2.0-12.0); NEUTROPHILS # (AUTO) 9.6 /CMM (1.8-8.9); NEUTROPHILS % (AUTO) 77.9 % (43.0-81.0); PLATELET COUNT (AUTO) 250 /CMM (150-450); RDW COEFFICIENT OF VARIATION 15.1 (11.5-15.0); RED BLOOD CELL COUNT(AUTO) 2.89 MIL/uL (4.5-6.0); WHITE BLOOD COUNT (AUTO) 12.3 K/uL (4.3-11.0)
[2017-04-07 07:17] LABS: CALCIUM, SERUM 8.9 mg/dL (8.5-10.1); CARBON DIOXIDE 25 mmol/L (21-32); CHLORIDE 103 mmol/L (98-107); CREATININE 3.2 mg/dL (0.6-1.3); GLUCOSE 244 mg/dL (74-106); MAGNESIUM 1.9 mg/dL (1.8-2.4); PHOSPHORUS 2.6 mg/dL (2.5-4.9); POTASSIUM 3.6 mmol/L (3.5-5.1); SODIUM SERUM 141 mmol/L (136-145); UREA NITROGEN, BLOOD 36 mg/dL (7-18)
[2017-04-07 08:00] VITALS: BP 97/45
[2017-04-07] MEDS ORDERED: VANCOMYCIN 1 GM in IV D5W 250 ML IV ONE (08:00)
[2017-04-07] MEDS: FLUDROCORTISONE 0.1 MG TABLET GT SCH (08:40)
[2017-04-07] MEDS: FAMOTIDINE/PF INJ 20 MG/2 ML VIAL IV SCH ×2 (08:40→21:30)
[2017-04-07] MEDS: VIT B CMPLX 3/FA/VIT C/BIOTIN 1 TAB TABLET GT SCH (08:41)
[2017-04-07] MEDS: PROSOURCE / PROSTAT (PYXIS) 30 ML UDC GT SCH (08:41)
[2017-04-07] MEDS: predniSONE 20 MG TABLET GT SCH (08:41)
[2017-04-07] MEDS: GENTAMICIN OPTH OINT 0.3% 3.5 G TUBE EACHEYE SCH ×3 (08:42→16:37)
[2017-04-07] MEDS: MUPIROCIN OINT 2% 22 GM TUBE SCH ×2 (08:42→21:40)
[2017-04-07] MEDS: HYDROGEL DRESSING 90 GM TUBE TP SCH (08:43)
[2017-04-07] MEDS: Z GUARD REMEDY 2 OZ OINT TP PRN (08:43)
[2017-04-07] MEDS: CLOTRIMAZOLE 1% 15 GM TUBE TP SCH ×2 (08:43→16:36)
[2017-04-07] MEDS: HEPARIN SODIUM, PORCINE 5000 UNITS/1 ML VIAL SQ SCH ×2 (08:44→21:32)
[2017-04-07] MEDS: INSULIN DETEMIR 100 UNIT/ML CARTRIDGE SQ SCH ×2 (08:47→21:39)
[2017-04-07] MEDS: FLUCONAZOLE IN NS 100 MG in PREMIX 1 EA IV SCH ×2 (09:56)
[2017-04-07] MEDS ORDERED: TPN BAG #5 IV PRN ×8 (10:00)
[2017-04-07 12:00] VITALS: BP 114/65
[2017-04-07] MEDS ORDERED: TPN BAG #4 IV PRN ×6 (12:00)
[2017-04-07] MEDS ORDERED: FEE PK DOSING 1 MIN EA MC ONE (14:08)
[2017-04-07 16:00] VITALS: BP 135/61
[2017-04-07 20:00] VITALS: BP 97/58
[2017-04-08] VITALS: BP 97/34
[2017-04-08] MEDS: BLOOD SUGAR DIAGNOSTIC 1 EACH STRIP IN SCH ×5 (00:02→23:29)
[2017-04-08] MEDS: INSULIN REGULAR, HUMAN 100 UNIT/ML 3 ML VIAL SQ PRN ×4 (00:02→23:30)
[2017-04-08 04:00] VITALS: BP 114/65
[2017-04-08] MEDS: FERROUS SULFATE UDC 300 MG/5 ML UDC GT SCH ×3 (05:00→21:00)
[2017-04-08] MEDS: LEVOTHYROXINE SODIUM 100 MCG TABLET GT SCH (05:40)
[2017-04-08 06:35] LABS: BASOPHILS # (AUTO) 0.1 /CMM (0.0-0.2); BASOPHILS % (AUTO) 0.6 % (0.0-2.0); EOSINOPHILS # (AUTO) 0.2 /CMM (0.0-0.7); EOSINOPHILS % (AUTO) 1.7 % (0.0-6.0); HEMATOCRIT 26 % (39-51); HEMOGLOBIN 8.6 g/dL (13.5-17.5); LYMPHOCYTES % (AUTO) 9.7 % (20.0-44.0); MEAN CORPUSCULAR HEMOGLOBIN 35 PG (26.0-33.0); MEAN CORPUSCULAR HGB CONC 34 g/dl (31.0-36.0); MEAN CORPUSCULAR VOLUME 104 fL (80-96); MONOCYTES % (AUTO) 9.2 % (2.0-12.0); NEUTROPHILS # (AUTO) 8.2 /CMM (1.8-8.9); NEUTROPHILS % (AUTO) 78.8 % (43.0-81.0); PLATELET COUNT (AUTO) 221 /CMM (150-450); RDW COEFFICIENT OF VARIATION 15.4 (11.5-15.0); RED BLOOD CELL COUNT(AUTO) 2.46 MIL/uL (4.5-6.0); WHITE BLOOD COUNT (AUTO) 10.4 K/uL (4.3-11.0)
[2017-04-08 06:53] LABS: ALANINE AMINOTRANSFERASE 19 U/L (12-78); ALBUMIN 2.1 g/dL (3.4-5.0); ALKALINE PHOSPHATASE 155 U/L (46-116); ASPARTATE AMINOTRANSFERASE 11 U/L (15-37); BILIRUBIN,TOTAL 0.5 mg/dL (0.2-1.0); CALCIUM, SERUM 9.2 mg/dL (8.5-10.1); CARBON DIOXIDE 26 mmol/L (21-32); CHLORIDE 103 mmol/L (98-107); CREATININE 4.2 mg/dL (0.6-1.3); GLUCOSE 209 mg/dL (74-106); MAGNESIUM 1.9 mg/dL (1.8-2.4); PHOSPHORUS 3.5 mg/dL (2.5-4.9); POTASSIUM 3.3 mmol/L (3.5-5.1); SODIUM SERUM 139 mmol/L (136-145); TOTAL PROTEIN, SERUM 6.1 g/dL (6.4-8.2); UREA NITROGEN, BLOOD 51 mg/dL (7-18)
[2017-04-08 07:10] LABS: VANCOMYCIN,TROUGH 16 ug/ml (12-20)
[2017-04-08 07:43] LABS: BAND % (MANUAL) 2 % (0.0-5.0); LYMPHOCYTES % (MANUAL) 5 % (16-48); MONOCYTES % (MANUAL) 9 % (0-11.0); NEUTROPHILS % (MANUAL) 84 (42-76)
[2017-04-08 08:00] VITALS: BP 115/69
[2017-04-08] MEDS ORDERED: TPN BAG #5 IV PRN ×25 (08:55→09:06)
[2017-04-08] MEDS: predniSONE 20 MG TABLET GT SCH (09:00)
[2017-04-08] MEDS: VIT B CMPLX 3/FA/VIT C/BIOTIN 1 TAB TABLET GT SCH (09:00)
[2017-04-08] MEDS: PROSOURCE / PROSTAT (PYXIS) 30 ML UDC GT SCH (09:00)
[2017-04-08] MEDS: FLUDROCORTISONE 0.1 MG TABLET GT SCH (09:00)
[2017-04-08] MEDS: GENTAMICIN OPTH OINT 0.3% 3.5 G TUBE EACHEYE SCH ×3 (09:02→16:41)
[2017-04-08] MEDS: HYDROGEL DRESSING 90 GM TUBE TP SCH (09:02)
[2017-04-08] MEDS: MUPIROCIN OINT 2% 22 GM TUBE SCH ×2 (09:02→21:36)
[2017-04-08] MEDS: FLUCONAZOLE IN NS 100 MG in PREMIX 1 EA IV SCH ×2 (09:04)
[2017-04-08] MEDS: INSULIN DETEMIR 100 UNIT/ML CARTRIDGE SQ SCH ×2 (09:05→21:32)
[2017-04-08] MEDS: FAMOTIDINE/PF INJ 20 MG/2 ML VIAL IV SCH ×2 (09:06→21:32)
[2017-04-08] MEDS: HEPARIN SODIUM, PORCINE 5000 UNITS/1 ML VIAL SQ SCH ×2 (09:06→21:32)
[2017-04-08] MEDS ORDERED: TPN BAG #6 IV PRN ×6 (09:30)
[2017-04-08 12:00] VITALS: BP 102/55
[2017-04-08] MEDS: CLOTRIMAZOLE 1% 15 GM TUBE TP SCH ×2 (13:29→16:41)
[2017-04-08 16:00] VITALS: BP 98/67
[2017-04-08] MEDS: VANCOMYCIN 500 MG in IV D5W 100 ML IV PRN (16:37)
[2017-04-08 20:00] VITALS: BP 99/67
[2017-04-09] VITALS: BP_SYST 80; BP_SYST 94; BP_DIAS 40; BP_DIAS 44
[2017-04-09 04:00] VITALS: BP 89/40
[2017-04-09] MEDS: FERROUS SULFATE UDC 300 MG/5 ML UDC GT SCH ×3 (05:00→21:00)
[2017-04-09] MEDS: BLOOD SUGAR DIAGNOSTIC 1 EACH STRIP IN SCH ×3 (05:55→17:52)
[2017-04-09] MEDS: INSULIN REGULAR, HUMAN 100 UNIT/ML 3 ML VIAL SQ PRN ×2 (06:09→17:51)
[2017-04-09] MEDS: LEVOTHYROXINE SODIUM 100 MCG TABLET GT SCH (06:11)
[2017-04-09 06:41] LABS: BASOPHILS # (AUTO) 0.1 /CMM (0.0-0.2); BASOPHILS % (AUTO) 0.9 % (0.0-2.0); EOSINOPHILS # (AUTO) 0.2 /CMM (0.0-0.7); EOSINOPHILS % (AUTO) 2.2 % (0.0-6.0); HEMATOCRIT 25 % (39-51); HEMOGLOBIN 8.6 g/dL (13.5-17.5); LYMPHOCYTES # (AUTO) 1.1 /CMM (0.8-4.8); LYMPHOCYTES % (AUTO) 11.4 % (20.0-44.0); MEAN CORPUSCULAR HEMOGLOBIN 35 PG (26.0-33.0); MEAN CORPUSCULAR HGB CONC 34 g/dl (31.0-36.0); MEAN CORPUSCULAR VOLUME 104 fL (80-96); MONOCYTES # (AUTO) 1.1 /CMM (0.1-1.30); MONOCYTES % (AUTO) 11.5 % (2.0-12.0); NEUTROPHILS # (AUTO) 7.3 /CMM (1.8-8.9); PLATELET COUNT (AUTO) 238 /CMM (150-450); RDW COEFFICIENT OF VARIATION 15.1 (11.5-15.0); RED BLOOD CELL COUNT(AUTO) 2.44 MIL/uL (4.5-6.0); WHITE BLOOD COUNT (AUTO) 9.8 K/uL (4.3-11.0)
[2017-04-09 07:08] LABS: CHLORIDE 104 mmol/L (98-107); CREATININE 3.5 mg/dL (0.6-1.3); MAGNESIUM 1.8 mg/dL (1.8-2.4); POTASSIUM 3.6 mmol/L (3.5-5.1); SODIUM SERUM 140 mmol/L (136-145)
[2017-04-09 07:13] LABS: CARBON DIOXIDE 25 mmol/L (21-32)
[2017-04-09 08:00] VITALS: BP 88/40
[2017-04-09] MEDS: FLUDROCORTISONE 0.1 MG TABLET GT SCH (08:13)
[2017-04-09] MEDS: PROSOURCE / PROSTAT (PYXIS) 30 ML UDC GT SCH (08:13)
[2017-04-09] MEDS: VIT B CMPLX 3/FA/VIT C/BIOTIN 1 TAB TABLET GT SCH (08:13)
[2017-04-09] MEDS: predniSONE 20 MG TABLET GT SCH (08:13)
[2017-04-09] MEDS: GENTAMICIN OPTH OINT 0.3% 3.5 G TUBE EACHEYE SCH ×3 (08:19→16:13)
[2017-04-09] MEDS: CLOTRIMAZOLE 1% 15 GM TUBE TP SCH ×2 (08:20→16:14)
[2017-04-09] MEDS: HYDROGEL DRESSING 90 GM TUBE TP PRN (08:20)
[2017-04-09] MEDS: MUPIROCIN OINT 2% 22 GM TUBE SCH ×2 (08:21→22:45)
[2017-04-09] MEDS: HYDROGEL DRESSING 90 GM TUBE TP SCH (08:21)
[2017-04-09] MEDS: FLUCONAZOLE IN NS 100 MG in PREMIX 1 EA IV SCH ×2 (08:22)
[2017-04-09] MEDS: FAMOTIDINE/PF INJ 20 MG/2 ML VIAL IV SCH ×2 (08:22→22:39)
[2017-04-09] MEDS: HEPARIN SODIUM, PORCINE 5000 UNITS/1 ML VIAL SQ SCH ×2 (08:23→22:40)
[2017-04-09] MEDS: INSULIN DETEMIR 100 UNIT/ML CARTRIDGE SQ SCH ×2 (08:27→22:37)
[2017-04-09 08:38] LABS: CALCIUM, SERUM 8.8 mg/dL (8.5-10.1); GLUCOSE 185 mg/dL (74-106); PHOSPHORUS 2.6 mg/dL (2.5-4.9); UREA NITROGEN, BLOOD 38 mg/dL (7-18)
[2017-04-09 08:48] LABS: BAND % (MANUAL) 4 % (0.0-5.0); LYMPHOCYTES % (MANUAL) 9 % (16-48); MONOCYTES % (MANUAL) 10 % (0-11.0); NEUTROPHILS % (MANUAL) 77 (42-76)
[2017-04-09 10:33] LABS: INR 0.94 (0.87-1.13)
[2017-04-09 12:00] VITALS: BP 102/57
[2017-04-09] MEDS ORDERED: TPN BAG #7 IV PRN ×9 (12:00)
[2017-04-09] MEDS ORDERED: FENTANYL PF 250MCG/5ML AMPUL ONE (13:04)
[2017-04-09] MEDS ORDERED: ROCURONIUM BROMIDE 50 MG/5 ML ONE (13:05)
[2017-04-09] MEDS ORDERED: MIDAZOLAM HCL 2 MG/2ML VIAL ONE (13:05)
[2017-04-09] MEDS ORDERED: HYDROCORTISONE SOD SUCCINATE 100 MG/2 ML VIAL ONE (13:12)
[2017-04-09] MEDS ORDERED: BUPIVACAINE MPF 0.5% W/EPI INJ 30 ML VIAL ONE (13:27)
[2017-04-09] MEDS ORDERED: LIDOCAINE 1% INJ 50 ML MDV IJ ONE (13:27)
[2017-04-09 16:00] VITALS: BP 96/49
[2017-04-09 20:00] VITALS: BP 128/68
[2017-04-10] VITALS: BP 138/79
[2017-04-10] MEDS: INSULIN REGULAR, HUMAN 100 UNIT/ML 3 ML VIAL SQ PRN ×5 (01:10→21:26)
[2017-04-10] MEDS: BLOOD SUGAR DIAGNOSTIC 1 EACH STRIP IN SCH ×4 (01:11→17:26)
[2017-04-10 04:00] VITALS: BP 136/77
[2017-04-10] MEDS: FERROUS SULFATE UDC 300 MG/5 ML UDC GT SCH ×3 (05:39→21:27)
[2017-04-10] MEDS: RENAL NOVASOURCE 1,000 ML BOTTLE GT PRN (05:40)
[2017-04-10] MEDS: LEVOTHYROXINE SODIUM 100 MCG TABLET GT SCH (06:37)
[2017-04-10 08:00] VITALS: BP 107/70
[2017-04-10] MEDS ORDERED: TPN BAG #8 IV PRN ×7 (08:00)
[2017-04-10] MEDS: predniSONE 20 MG TABLET GT SCH (08:31)
[2017-04-10] MEDS: FAMOTIDINE/PF INJ 20 MG/2 ML VIAL IV SCH ×2 (08:32→21:27)
[2017-04-10] MEDS: FLUDROCORTISONE 0.1 MG TABLET GT SCH (08:32)
[2017-04-10] MEDS: VIT B CMPLX 3/FA/VIT C/BIOTIN 1 TAB TABLET GT SCH (08:32)
[2017-04-10] MEDS: FLUCONAZOLE IN NS 100 MG in PREMIX 1 EA IV SCH ×2 (08:32)
[2017-04-10] MEDS: PROSOURCE / PROSTAT (PYXIS) 30 ML UDC GT SCH (08:32)
[2017-04-10] MEDS: MUPIROCIN OINT 2% 22 GM TUBE SCH ×2 (08:33→21:27)
[2017-04-10] MEDS: HYDROGEL DRESSING 90 GM TUBE TP SCH (08:33)
[2017-04-10] MEDS: GENTAMICIN OPTH OINT 0.3% 3.5 G TUBE EACHEYE SCH ×3 (08:33→17:29)
[2017-04-10] MEDS: Z GUARD REMEDY 2 OZ OINT TP PRN (08:34)
[2017-04-10] MEDS: CLOTRIMAZOLE 1% 15 GM TUBE TP SCH ×2 (08:35→17:28)
[2017-04-10] MEDS: HEPARIN SODIUM, PORCINE 5000 UNITS/1 ML VIAL SQ SCH (08:38)
[2017-04-10] MEDS: INSULIN DETEMIR 100 UNIT/ML CARTRIDGE SQ SCH ×2 (08:40→21:24)
[2017-04-10 10:04] LABS: CALCIUM, SERUM 9.2 mg/dL (8.5-10.1); CARBON DIOXIDE 23 mmol/L (21-32); CHLORIDE 104 mmol/L (98-107); CREATININE 4.2 mg/dL (0.6-1.3); GLUCOSE 198 mg/dL (74-106); SODIUM SERUM 138 mmol/L (136-145); UREA NITROGEN, BLOOD 56 mg/dL (7-18)
[2017-04-10 12:00] VITALS: BP_SYST 88; BP_SYST 90; BP_DIAS 33; BP_DIAS 68
[2017-04-10 16:00] VITALS: BP 105/65
[2017-04-10 20:00] VITALS: BP_SYST 121; BP_SYST 127; BP_DIAS 69
[2017-04-11] VITALS: BP 124/69
[2017-04-11] MEDS: BLOOD SUGAR DIAGNOSTIC 1 EACH STRIP IN SCH ×4 (00:34→17:21)
[2017-04-11] MEDS: INSULIN REGULAR, HUMAN 100 UNIT/ML 3 ML VIAL SQ PRN ×4 (00:37→17:42)
[2017-04-11 04:00] VITALS: BP 132/70
[2017-04-11] MEDS: FERROUS SULFATE UDC 300 MG/5 ML UDC GT SCH ×3 (05:13→20:51)
[2017-04-11] MEDS: RENAL NOVASOURCE 1,000 ML BOTTLE GT PRN (05:13)
[2017-04-11] MEDS: LEVOTHYROXINE SODIUM 100 MCG TABLET GT SCH (05:14)
[2017-04-11 07:04] LABS: BASOPHILS % (AUTO) 0.2 % (0.0-2.0); EOSINOPHILS % (AUTO) 0.3 % (0.0-6.0); HEMATOCRIT 28 % (39-51); HEMOGLOBIN 9.3 g/dL (13.5-17.5); LYMPHOCYTES # (AUTO) 1.3 /CMM (0.8-4.8); LYMPHOCYTES % (AUTO) 9.3 % (20.0-44.0); MEAN CORPUSCULAR HEMOGLOBIN 35 PG (26.0-33.0); MEAN CORPUSCULAR HGB CONC 34 g/dl (31.0-36.0); MEAN CORPUSCULAR VOLUME 105 fL (80-96); MONOCYTES # (AUTO) 1.2 /CMM (0.1-1.30); MONOCYTES % (AUTO) 8.4 % (2.0-12.0); NEUTROPHILS # (AUTO) 11.5 /CMM (1.8-8.9); NEUTROPHILS % (AUTO) 81.8 % (43.0-81.0); PLATELET COUNT (AUTO) 286 /CMM (150-450); RDW COEFFICIENT OF VARIATION 15.4 (11.5-15.0); RED BLOOD CELL COUNT(AUTO) 2.63 MIL/uL (4.5-6.0); WHITE BLOOD COUNT (AUTO) 14.1 K/uL (4.3-11.0)
[2017-04-11 07:41] LABS: CARBON DIOXIDE 24 mmol/L (21-32); CHLORIDE 103 mmol/L (98-107); CREATININE 4.2 mg/dL (0.6-1.3); GLUCOSE 255 mg/dL (74-106); PHOSPHORUS 2.7 mg/dL (2.5-4.9); POTASSIUM 4.5 mmol/L (3.5-5.1); SODIUM SERUM 140 mmol/L (136-145); UREA NITROGEN, BLOOD 56 mg/dL (7-18)
[2017-04-11 08:00] VITALS: BP 143/56
[2017-04-11] MEDS: GENTAMICIN OPTH OINT 0.3% 3.5 G TUBE EACHEYE SCH ×3 (08:43→17:40)
[2017-04-11] MEDS: FLUDROCORTISONE 0.1 MG TABLET GT SCH (08:44)
[2017-04-11] MEDS: VIT B CMPLX 3/FA/VIT C/BIOTIN 1 TAB TABLET GT SCH (08:44)
[2017-04-11] MEDS: predniSONE 20 MG TABLET GT SCH (08:44)
[2017-04-11] MEDS: FLUCONAZOLE (100 MG) 100 MG TABLET GT SCH (08:44)
[2017-04-11] MEDS: HYDROGEL DRESSING 90 GM TUBE TP SCH (08:44)
[2017-04-11] MEDS: FAMOTIDINE/PF INJ 20 MG/2 ML VIAL IV SCH ×2 (08:44→20:51)
[2017-04-11] MEDS: PROSOURCE / PROSTAT (PYXIS) 30 ML UDC GT SCH (08:44)
[2017-04-11] MEDS: MUPIROCIN OINT 2% 22 GM TUBE SCH ×2 (08:45→20:51)
[2017-04-11] MEDS: CLOTRIMAZOLE 1% 15 GM TUBE TP SCH ×2 (08:45→17:40)
[2017-04-11] MEDS: INSULIN DETEMIR 100 UNIT/ML CARTRIDGE SQ SCH ×2 (08:46→20:57)
[2017-04-11 10:08] LABS: BAND % (MANUAL) 3 % (0.0-5.0); LYMPHOCYTES % (MANUAL) 17 % (16-48); MONOCYTES % (MANUAL) 4 % (0-11.0); NEUTROPHILS % (MANUAL) 76 (42-76)
[2017-04-11 12:00] VITALS: BP 121/60
[2017-04-11 16:00] VITALS: BP 121/60
[2017-04-11 20:00] VITALS: BP 138/75
[2017-04-12] VITALS: BP 128/69
[2017-04-12] MEDS: BLOOD SUGAR DIAGNOSTIC 1 EACH STRIP IN SCH ×5 (00:03→23:37)
[2017-04-12] MEDS: INSULIN REGULAR, HUMAN 100 UNIT/ML 3 ML VIAL SQ PRN ×5 (00:04→23:40)
[2017-04-12] MEDS: RENAL NOVASOURCE 1,000 ML BOTTLE GT PRN (03:14)
[2017-04-12 04:00] VITALS: BP 151/70
[2017-04-12] MEDS: FERROUS SULFATE UDC 300 MG/5 ML UDC GT SCH ×3 (05:31→21:17)
[2017-04-12] MEDS: LEVOTHYROXINE SODIUM 100 MCG TABLET GT SCH (05:32)
[2017-04-12 07:16] LABS: BASOPHILS % (AUTO) 0.1 % (0.0-2.0); EOSINOPHILS % (AUTO) 0.2 % (0.0-6.0); HEMATOCRIT 25 % (39-51); HEMOGLOBIN 8.5 g/dL (13.5-17.5); LYMPHOCYTES # (AUTO) 1.4 /CMM (0.8-4.8); MEAN CORPUSCULAR HEMOGLOBIN 36 PG (26.0-33.0); MEAN CORPUSCULAR HGB CONC 34 g/dl (31.0-36.0); MEAN CORPUSCULAR VOLUME 105 fL (80-96); MONOCYTES # (AUTO) 1.5 /CMM (0.1-1.30); MONOCYTES % (AUTO) 8.8 % (2.0-12.0); NEUTROPHILS # (AUTO) 14.6 /CMM (1.8-8.9); NEUTROPHILS % (AUTO) 82.9 % (43.0-81.0); PLATELET COUNT (AUTO) 279 /CMM (150-450); RED BLOOD CELL COUNT(AUTO) 2.39 MIL/uL (4.5-6.0); WHITE BLOOD COUNT (AUTO) 17.6 K/uL (4.3-11.0)
[2017-04-12 07:26] LABS: CALCIUM, SERUM 10.4 mg/dL (8.5-10.1); CARBON DIOXIDE 25 mmol/L (21-32); CHLORIDE 100 mmol/L (98-107); CREATININE 5.1 mg/dL (0.6-1.3); GLUCOSE 190 mg/dL (74-106); POTASSIUM 5.1 mmol/L (3.5-5.1); SODIUM SERUM 136 mmol/L (136-145)
[2017-04-12 07:30] LABS: UREA NITROGEN, BLOOD 85 mg/dL (7-18)
[2017-04-12 07:39] LABS: BAND % (MANUAL) 1 % (0.0-5.0); LYMPHOCYTES % (MANUAL) 16 % (16-48); METAMYELOCYTES % 1 % (0-0); MONOCYTES % (MANUAL) 9 % (0-11.0); NEUTROPHILS % (MANUAL) 73 (42-76)
[2017-04-12 08:00] VITALS: BP 128/55
[2017-04-12] MEDS: FLUCONAZOLE (100 MG) 100 MG TABLET GT SCH (08:51)
[2017-04-12] MEDS: FLUDROCORTISONE 0.1 MG TABLET GT SCH (08:51)
[2017-04-12] MEDS: predniSONE 20 MG TABLET GT SCH (08:51)
[2017-04-12] MEDS: VIT B CMPLX 3/FA/VIT C/BIOTIN 1 TAB TABLET GT SCH (08:51)
[2017-04-12] MEDS: GENTAMICIN OPTH OINT 0.3% 3.5 G TUBE EACHEYE SCH ×3 (08:52→17:00)
[2017-04-12] MEDS: MUPIROCIN OINT 2% 22 GM TUBE SCH ×2 (08:53→21:21)
[2017-04-12] MEDS: CLOTRIMAZOLE 1% 15 GM TUBE TP SCH (08:53)
[2017-04-12] MEDS: FAMOTIDINE/PF INJ 20 MG/2 ML VIAL IV SCH ×2 (09:07→21:17)
[2017-04-12] MEDS: INSULIN DETEMIR 100 UNIT/ML CARTRIDGE SQ SCH ×2 (09:48→21:25)
[2017-04-12] MEDS: HYDROGEL DRESSING 90 GM TUBE TP SCH (09:50)
[2017-04-12] MEDS: PROSOURCE / PROSTAT (PYXIS) 30 ML UDC GT SCH (09:50)
[2017-04-12 12:00] VITALS: BP 119/52
[2017-04-12 16:00] VITALS: BP 125/55
[2017-04-12] MEDS ORDERED: RENAL NOVASOURCE 1,000 ML BOTTLE GT PRN (16:12)
[2017-04-12] MEDS: VANCOMYCIN 500 MG in IV D5W 100 ML IV PRN (16:30)
[2017-04-12 20:00] VITALS: BP_SYST 114; BP_SYST 119; BP_DIAS 69
[2017-04-12] MEDS: MEROPENEM 500 MG in IV NS 0.9% 50 ML IV SCH (20:13)
[2017-04-12] MEDS: METRONIDAZOLE 500 MG TABLET PO SCH (21:16)
[2017-04-13] VITALS: BP 121/64
[2017-04-13 04:00] VITALS: BP 120/69
[2017-04-13] MEDS: FERROUS SULFATE UDC 300 MG/5 ML UDC GT SCH ×2 (04:40→12:57)
[2017-04-13] MEDS: METRONIDAZOLE 500 MG TABLET PO SCH ×2 (04:40→12:57)
[2017-04-13] MEDS: LEVOTHYROXINE SODIUM 100 MCG TABLET GT SCH (06:01)
[2017-04-13] MEDS: MEROPENEM 500 MG in IV NS 0.9% 50 ML IV SCH (06:01)
[2017-04-13] MEDS: BLOOD SUGAR DIAGNOSTIC 1 EACH STRIP IN SCH ×3 (06:03→17:04)
[2017-04-13] MEDS: INSULIN REGULAR, HUMAN 100 UNIT/ML 3 ML VIAL SQ PRN ×3 (06:04→17:35)
[2017-04-13 07:00] LABS: BASOPHILS # (AUTO) 0.1 /CMM (0.0-0.2); BASOPHILS % (AUTO) 0.3 % (0.0-2.0); EOSINOPHILS # (AUTO) 0.1 /CMM (0.0-0.7); EOSINOPHILS % (AUTO) 0.4 % (0.0-6.0); HEMATOCRIT 26 % (39-51); LYMPHOCYTES # (AUTO) 1.8 /CMM (0.8-4.8); LYMPHOCYTES % (AUTO) 7.6 % (20.0-44.0); MEAN CORPUSCULAR HEMOGLOBIN 36 PG (26.0-33.0); MEAN CORPUSCULAR HGB CONC 34 g/dl (31.0-36.0); MEAN CORPUSCULAR VOLUME 105 fL (80-96); MONOCYTES # (AUTO) 2.4 /CMM (0.1-1.30); MONOCYTES % (AUTO) 10.4 % (2.0-12.0); NEUTROPHILS # (AUTO) 18.7 /CMM (1.8-8.9); NEUTROPHILS % (AUTO) 81.3 % (43.0-81.0); PLATELET COUNT (AUTO) 234 /CMM (150-450); RDW COEFFICIENT OF VARIATION 15.4 (11.5-15.0); RED BLOOD CELL COUNT(AUTO) 2.49 MIL/uL (4.5-6.0)
[2017-04-13 07:44] LABS: CALCIUM, SERUM 10.1 mg/dL (8.5-10.1); CARBON DIOXIDE 27 mmol/L (21-32); CHLORIDE 100 mmol/L (98-107); CREATININE 4.2 mg/dL (0.6-1.3); GLUCOSE 226 mg/dL (74-106); MAGNESIUM 2.2 mg/dL (1.8-2.4); POTASSIUM 4.7 mmol/L (3.5-5.1); SODIUM SERUM 138 mmol/L (136-145); UREA NITROGEN, BLOOD 73 mg/dL (7-18)
[2017-04-13 08:00] VITALS: BP 108/48
[2017-04-13] MEDS: GENTAMICIN OPTH OINT 0.3% 3.5 G TUBE EACHEYE SCH (08:09)
[2017-04-13] MEDS: PROSOURCE / PROSTAT (PYXIS) 30 ML UDC GT SCH (08:09)
[2017-04-13] MEDS: VIT B CMPLX 3/FA/VIT C/BIOTIN 1 TAB TABLET GT SCH (08:10)
[2017-04-13] MEDS: FLUCONAZOLE (100 MG) 100 MG TABLET GT SCH (08:10)
[2017-04-13] MEDS: predniSONE 20 MG TABLET GT SCH (08:10)
[2017-04-13] MEDS: FAMOTIDINE/PF INJ 20 MG/2 ML VIAL IV SCH (08:10)
[2017-04-13] MEDS: HYDROGEL DRESSING 90 GM TUBE TP PRN (08:11)
[2017-04-13] MEDS: MUPIROCIN OINT 2% 22 GM TUBE SCH (08:12)
[2017-04-13] MEDS: Z GUARD REMEDY 2 OZ OINT TP PRN (08:12)
[2017-04-13] MEDS: INSULIN DETEMIR 100 UNIT/ML CARTRIDGE SQ SCH (08:15)
[2017-04-13 08:18] LABS: BAND % (MANUAL) 4 % (0.0-5.0); LYMPHOCYTES % (MANUAL) 4 % (16-48); METAMYELOCYTES % 2 % (0-0); MONOCYTES % (MANUAL) 9 % (0-11.0); MYELOCYTES % 2 % (0-0); NEUTROPHILS % (MANUAL) 79 (42-76)
[2017-04-13] MEDS: HYDROGEL DRESSING 90 GM TUBE TP SCH (08:19)
[2017-04-13] MEDS: FLUDROCORTISONE 0.1 MG TABLET GT SCH (08:23)
[2017-04-13 12:00] VITALS: BP_SYST 113; BP_SYST 115; BP_DIAS 58; BP_DIAS 59
[2017-04-13 16:00] VITALS: BP 115/59
[2017-04-13] MEDS ORDERED: DAKINS QUARTER STRENGTH (0.125%) 480 ML BOTTLE TOP SCH (17:00)
[2017-04-13] MEDS ORDERED: MERO500V IV (18:52)
[2017-04-13] MEDS ORDERED: METR500T PO (18:52)
[2017-04-13] MEDS ORDERED: Hydrogel Dressing TP (18:52)
[2017-04-13] MEDS ORDERED: RXVAN XX (18:52)
[2017-04-13] MEDS ORDERED: Renal Novasource GT (18:52)
[2017-04-13] MEDS ORDERED: FLUC100T8 GT (18:52)
== END 2017-04-13 19:09 | disposition short-term general hospital (02) | DRG 326 ==
LOC: ER 18:04 → TELE-TD 21:13 → TELE1 22:05
PROVIDERS: ADMIT Internal Medicine Nephrology; ATTEND Nurse Practitioner Acute Care
PROC: 5A1955Z Respiratory Ventilation, Greater than 96 Consecutive Hours (ICD-10-PCS; principal; 2017-04-02)
PROC: 0DP68UZ Removal of Feeding Device from Stomach, Via Natural or Artificial Opening Endoscopic (ICD-10-PCS; 2017-04-05)
PROC: 5A09357 Assistance with Respiratory Ventilation, Less than 24 Consecutive Hours, Continuous Positive Airway Pressure (ICD-10-PCS; 2017-04-05)
PROC: 05H533Z Insertion of Infusion Device into Right Subclavian Vein, Percutaneous Approach (ICD-10-PCS; 2017-04-05)
PROC: B546ZZA Ultrasonography of Right Subclavian Vein, Guidance (ICD-10-PCS; 2017-04-05)
DX: K94.23 Gastrostomy malfunction (principal); A41.9 Sepsis, unspecified organism; I21.4 Non-ST elevation (NSTEMI) myocardial infarction; R65.20 Severe sepsis without septic shock; J18.9 Pneumonia, unspecified organism; G93.49 Other encephalopathy; Z99.11 Dependence on respirator [ventilator] status; K31.6 Fistula of stomach and duodenum; N18.6 End stage renal disease; R53.2 Functional quadriplegia; J96.11 Chronic respiratory failure with hypoxia; I12.0 Hypertensive chronic kidney disease with stage 5 chronic kidney disease or end stage renal disease; E87.0 Hyperosmolality and hypernatremia; J96.12 Chronic respiratory failure with hypercapnia; E87.2 Acidosis; D68.59 Other primary thrombophilia; E27.40 Unspecified adrenocortical insufficiency; E44.1 Mild protein-calorie malnutrition; E66.2 Morbid (severe) obesity with alveolar hypoventilation; N39.0 Urinary tract infection, site not specified; I50.9 Heart failure, unspecified; R13.10 Dysphagia, unspecified; E03.9 Hypothyroidism, unspecified; E11.22 Type 2 diabetes mellitus with diabetic chronic kidney disease; E11.65 Type 2 diabetes mellitus with hyperglycemia; E87.6 Hypokalemia; F09 Unspecified mental disorder due to known physiological condition; F25.9 Schizoaffective disorder, unspecified; K21.9 Gastro-esophageal reflux disease without esophagitis; Z99.2 Dependence on renal dialysis; Z87.442 Personal history of urinary calculi; Z87.440 Personal history of urinary (tract) infections; Z85.828 Personal history of other malignant neoplasm of skin; Z79.4 Long term (current) use of insulin; Z79.899 Other long term (current) drug therapy; Y83.3 Surgical operation with formation of external stoma as the cause of abnormal reaction of the patient, or of later complication, without mention of misadventure at the time of the procedure; Y81.8 Miscellaneous general- and plastic-surgery devices associated with adverse incidents, not elsewhere classified; Z68.35 Body mass index [BMI] 35.0-35.9, adult; D53.9 Nutritional anemia, unspecified; K43.2 Incisional hernia without obstruction or gangrene; B36.9 Superficial mycosis, unspecified; B96.4 Proteus (mirabilis) (morganii) as the cause of diseases classified elsewhere
CPT/HCPCS: 31720; 36415; 71010-TC; 74000-TC; 80048-TC; 80053-TC; 80076-TC; 80150; 80202-TC; 81000-TC; 82247-TC; 82248-TC; 82746; 82962-TC; 83605-TC; 83735-TC; 83880; 84100-TC; 84478-TC; 84484-TC; 85025-TC; 85730-TC; 86706; 86803; 87040-TC; 87081-TC; 87086-TC; 87186-TC; 87340; 88305-TC; 90935-TC; 93307-TC; 94003-TC; 94762-TC; A4216; A4349; A4606; A6248; A6253; A6402; A6403; J0171; J0278; J0696; J1450; J1644; J1720; J1815; J1956; J2185; J2250; J2543; J2704; J3010; J3370; J3475; J3480; J3490; J7030; J7042; J7050; J7060; J7070; P9047; Q9963; Z7610

== ENCOUNTER 2017-07-28 18:04 | Inpatient (IN) | payer MEDICARE, MEDICAID ==
[~2017-07-28] VITALS: Ht 182.9 cm; Wt 124.3 kg
[~2017-07-28 18:04] MED LIST changes: +AMIN30LI2 GT; -BETA1TAB4 GT; -BLOO-668 IN; -CYAN500T4 GT; -DARB25DI SQ; -ERGO50003 GT; +FLUC100T8 GT; -FOLI1TAB16 GT; -HEPA10009 SQ; +Hydrogel Dressing TP; +MERO500V IV; +METR500T PO; -NUTR100037 GT; -ONDA4TAB5 GT; +RXVAN XX; +Renal Novasource GT
--- NOTE | 2017-07-28 18:38 | NUR ---
DELISA FROM HD CENTER DT LOW BLOOD PRESSURE, PER REPORT PATIENT COMPLETE HIS HD TODAY. PT IS AWAKE, VENT/ TRACHE DEPENDENT ORDERED. GT NOTED. PT WITH HD ACCESS ON NINA. NO BLEEDING NOTED; VSS. AFEBRILE.
[2017-07-28 18:50] VITALS: BP 104/72
--- NOTE | 2017-07-28 18:55 | NUR ---
PT REC'D TRACHED VIA [facility] VENT. NO RESP DISTRESS NOTED. [facility] VENT SETTING GIVEN FROM TRANSPORT RT. FILLING CARRIER CUFF PRESSURE NOTED. ALARMS ARE SET AND AUDIBLE. VENT PLUGGED INTO RED OUTLET. WILL CONTINUE TO MONITOR Addendum: 07/28/17 at 1857 by AURORA YOO RT Amended: Links added.
[2017-07-28 19:21] LABS: BASOPHILS # (AUTO) 0.1 /CMM (0.0-0.2); BASOPHILS % (AUTO) 0.5 % (0.0-2.0); MONOCYTES # (AUTO) 1.1 /CMM (0.1-1.30)
[2017-07-28 19:26] LABS: EOSINOPHILS # (AUTO) 0.6 /CMM (0.0-0.7); EOSINOPHILS % (AUTO) 4.9 % (0.0-6.0); HEMATOCRIT 28 % (39-51); LYMPHOCYTES % (AUTO) 8.7 % (20.0-44.0); MEAN CORPUSCULAR HEMOGLOBIN 31 PG (26.0-33.0); MEAN CORPUSCULAR HGB CONC 33 g/dl (31.0-36.0); MEAN CORPUSCULAR VOLUME 95 fL (80-96); MONOCYTES % (AUTO) 9.7 % (2.0-12.0); NEUTROPHILS # (AUTO) 8.9 /CMM (1.8-8.9); NEUTROPHILS % (AUTO) 76.2 % (43.0-81.0); PLATELET COUNT (AUTO) 313 /CMM (150-450); RDW COEFFICIENT OF VARIATION 17.3 (11.5-15.0); WHITE BLOOD COUNT (AUTO) 11.7 K/uL (4.3-11.0)
[2017-07-28 19:32] LABS: CALCIUM, SERUM 9.8 mg/dL (8.5-10.1); CARBON DIOXIDE 24 mmol/L (21-32); CHLORIDE 96 mmol/L (98-107); CREATININE 1.8 mg/dL (0.6-1.3); GLUCOSE 160 mg/dL (74-106); POTASSIUM 3.9 mmol/L (3.5-5.1); SODIUM SERUM 130 mmol/L (136-145); UREA NITROGEN, BLOOD 30 mg/dL (7-18)
[2017-07-28 19:37] LABS: ALANINE AMINOTRANSFERASE 32 U/L (12-78); ALBUMIN 2.2 g/dL (3.4-5.0); ALKALINE PHOSPHATASE 348 U/L (46-116); ASPARTATE AMINOTRANSFERASE 35 U/L (15-37); BILIRUBIN,DIRECT 0.2 mg/dL (0.0-0.2); BILIRUBIN,TOTAL 0.5 mg/dL (0.2-1.0); TOTAL PROTEIN, SERUM 7.6 g/dL (6.4-8.2)
[2017-07-28 19:39] LABS: TROPONIN I 0.019 ng/mL (0.00-0.056)
--- NOTE | 2017-07-28 19:42 | NUR ---
LAB RESULTS RECEIVED. SHARI SABA MADE AWARE. PENDING DISPOSITION.
[2017-07-28] MEDS ORDERED: MIDODRINE HCL (5MG) 5 MG TABLET PO SCH (20:00)
--- NOTE | 2017-07-28 20:05 | NUR ---
CALLED PHARMACY FOR CHEORINE
--- NOTE | 2017-07-28 20:21 | NUR ---
PT MEDICATED ORDERED.
[2017-07-28 21:00] VITALS: BP 89/50
--- NOTE | 2017-07-28 21:19 | NUR ---
SHARI SABA TALKING TO DR. ANDREW REGARDING PT ADMISSION.
[2017-07-28] MEDS ORDERED: MAGNESIUM HYDROXIDE 30 ML UDC PO PRN (21:30)
[2017-07-28] MEDS ORDERED: HYDROCODONE/APAP 5/325MG 1 EACH TABLET PO PRN (21:30)
[2017-07-28] MEDS ORDERED: MAG HYDROX/AL HYDROX/SIMETH 30 ML UDC PO PRN (21:30)
[2017-07-28] MEDS ORDERED: ZOLPIDEM TARTRATE 5 MG TABLET PO PRN (21:30)
[2017-07-28] MEDS ORDERED: IV NS 0.9% 500 ML IV ONE (21:30)
[2017-07-28] MEDS ORDERED: ACETAMINOPHEN 325 MG TABLET PO PRN (21:30)
[2017-07-28] MEDS ORDERED: ONDANSETRON HCL/PF 4 MG/2 ML VIAL IVP PRN (21:30)
[2017-07-28] MEDS: MIDODRINE HCL (5MG) 5 MG TABLET PO SCH (21:30)
[2017-07-28] MEDS: INSULIN DETEMIR 100 UNIT/ML CARTRIDGE SQ SCH (22:00)
--- NOTE | 2017-07-28 22:54 | NUR ---
report called to tele 1 jesse locke. will transport pt via acls protocol.
--- NOTE | 2017-07-28 22:54 | NUR ---
RECEIVED REPORT FROM ELECTRIC SIGN WIRER ED FOR CONTINUITY OF CARE.
--- NOTE | 2017-07-28 23:15 | NUR ---
RN INITIAL NOTE RECEIVED PT IN NO ACUTE DISTRESS IN BED. PT IS NON VERBAL, BUT IS ABLE TO TRACK AND MOVES UPPER EXTREMITIES. PT IS ON MECHANICAL VENT VIA TRACH. TRACH SITE IS CLEAN DRY AND INTACT. PT IS TOLERATING VENT SETTING WELL. PT IS ON TELE MONITORING WITH SR WITH 1ST DEGREE BLOCK. PT HAS NINA HD CATH THAT IS CLEAN DRY INTACT AND PATENT. PT HAS RHAND 20G THAT IS CLEAN DRY INTACT AND PATENT WITH SALINE FLUSH. BED IN LOW LOCK POSITION WITH RIALS UP X 2. CALL LIGHT WITHIN REACH AND ALL SAFETY MEASURES ENSURED AND CARRIED OUT. WILL CONTINUE TO MONITOR PT.
[2017-07-29] VITALS: BP 108/60
[2017-07-29] MEDS ORDERED: DEXTROSE 50%-WATER 50 ML DISP.SYRIN IV PRN (01:30)
[2017-07-29 04:00] VITALS: BP 90/44
[2017-07-29] MEDS: BLOOD SUGAR DIAGNOSTIC 1 EACH STRIP IN SCH ×4 (05:48→23:46)
--- NOTE | 2017-07-29 06:53 | NUR ---
RN CLOSING NOTE PT REMAINS IN NO ACUTE DISTRESS IN BED. PT DID NOT HAVE ANY SIGNIFICANT CHANGE IN CONDITION DURING SHIFT. PT TOLERATED VENT SETTING WELL. ALL NEEDS MET, ALL ORDERS CARRIED OUT. WILL ENDORSE CARE TO AM RN FOR CONTINUITY OF CARE.
--- NOTE | 2017-07-29 07:36 | NUR ---
RN OPENING NOTES RECEIVED PT AWAKE IN BED IN NO ACUTE SIGNS OF DISTRESS. OBTUNDED, NON-VERBAL, ABLE TO MOVE UPPER EXTREMITIES. ON MECHANICAL VENT VIA TRACH AT PRESCRIBED SETTINGS, TOLERATING VENT SETTINGS WELL. TRACH SITE IS CLEAN DRY AND INTACT. ON TELE MONITORING WITH CURRENT READING OF SR WITH 1ST DEGREE BLOCK AND HR OF 68. LCW HD CATH IN PLACED, CLEAN, INTACT AND PATENT. IV ACCESS ON RIGHT HAND G#20G INTACT AND PATENT WITH SALINE FLUSH. BED IN LOW/LOCKED POSITION WITH SIDE RAILS UP X 2. CALL LIGHT WITHIN REACH. ALL SAFETY MEASURES MAINTAINED. WILL CONTINUE TO MONITOR PT ACCORDINGLY.
[2017-07-29 07:49] LABS: BASOPHILS # (AUTO) 0.1 /CMM (0.0-0.2); BASOPHILS % (AUTO) 0.4 % (0.0-2.0); EOSINOPHILS # (AUTO) 0.5 /CMM (0.0-0.7); EOSINOPHILS % (AUTO) 4.3 % (0.0-6.0); HEMATOCRIT 26 % (39-51); HEMOGLOBIN 8.8 g/dL (13.5-17.5); LYMPHOCYTES # (AUTO) 1.1 /CMM (0.8-4.8); MEAN CORPUSCULAR HEMOGLOBIN 32 PG (26.0-33.0); MEAN CORPUSCULAR HGB CONC 33 g/dl (31.0-36.0); MEAN CORPUSCULAR VOLUME 95 fL (80-96); MONOCYTES # (AUTO) 1.2 /CMM (0.1-1.30); MONOCYTES % (AUTO) 9.9 % (2.0-12.0); NEUTROPHILS # (AUTO) 9.1 /CMM (1.8-8.9); NEUTROPHILS % (AUTO) 76.4 % (43.0-81.0); PLATELET COUNT (AUTO) 297 /CMM (150-450); RDW COEFFICIENT OF VARIATION 18.4 (11.5-15.0); RED BLOOD CELL COUNT(AUTO) 2.77 MIL/uL (4.5-6.0); WHITE BLOOD COUNT (AUTO) 11.9 K/uL (4.3-11.0)
[2017-07-29 08:00] VITALS: BP 91/60
[2017-07-29 08:26] LABS: ALANINE AMINOTRANSFERASE 37 U/L (12-78); ALBUMIN 2.2 g/dL (3.4-5.0); ALKALINE PHOSPHATASE 333 U/L (46-116); ASPARTATE AMINOTRANSFERASE 38 U/L (15-37); BILIRUBIN,TOTAL 0.6 mg/dL (0.2-1.0); CARBON DIOXIDE 23 mmol/L (21-32); CHLORIDE 98 mmol/L (98-107); CREATININE 2.3 mg/dL (0.6-1.3); GLUCOSE 164 mg/dL (74-106); MAGNESIUM 2.2 mg/dL (1.8-2.4); PHOSPHORUS 2.9 mg/dL (2.5-4.9); SODIUM SERUM 133 mmol/L (136-145); TOTAL PROTEIN, SERUM 7.6 g/dL (6.4-8.2); UREA NITROGEN, BLOOD 39 mg/dL (7-18)
[2017-07-29] MEDS: MIDODRINE HCL (5MG) 5 MG TABLET PO SCH ×2 (09:47→12:18)
[2017-07-29 10:05] LABS: APPEARANCE,URINE CLOUDY (CLEAR); COLOR,URINE YELLOW (YELLOW)
--- NOTE | 2017-07-29 10:06 | NUR ---
RT REMOVED PEEP PER MD ORDER. YESSENIA HARRELL NOTIFIED AND AWARE. NO RESPIRATORY DISTRESS NOTED AT THIS TIME. WILL CONTINUE TO MONITOR THE PATIENT CLOSELY FOR ANY CHANGES. Addendum: 07/29/17 at 1150 by OZZIE OSORIO RT Amended: Links added.
[2017-07-29 10:07] LABS: PH,URINE 6.5 (5.0-8.0); PROTEIN,URINE 2 mg/dl (NEGATIVE); UGLUCOSE NEGATIVE (NEGATIVE)
[2017-07-29 10:08] LABS: BILIRUBIN,URINE NEGATIVE (NEGATIVE); BLOOD, URINE 3+ Ery/uL (NEGATIVE); KETONES,URINE NEGATIVE (NEGATIVE); UROBILINOGEN,URINE 0.2 EU/dL (0.2)
[2017-07-29 10:09] LABS: LEUKOCYTE ESTERASE ,URINE 3+ (NEGATIVE); NITRITE, URINE NEGATIVE (NEGATIVE)
[2017-07-29 10:11] LABS: BACTERIA,URINE Few /HPF (None Seen); RBC,URINE 21-50 /HPF (0-2); SQUAMOUS EPITHELIAL CELL,UR Few /HPF (None Seen); WBC,URINE TOO NUMEROUS TO COUN /HPF (0-3)
[2017-07-29] MEDS: RENAL NOVASOURCE 1,000 ML BOTTLE GT PRN (10:11)
[2017-07-29 10:37] LABS: CHOLESTEROL 149 mg/dL (<200); HDL CHOLESTEROL 39 mg/dL (40-60); LDL 83 mg/dL (0-99); TRIGLYCERIDES 128 mg/dL (30-150)
[2017-07-29 12:00] VITALS: BP 92/55
[2017-07-29] MEDS ORDERED: EPOETIN ALFA (10,000 UNIT) 10,000 UNIT/ML VIAL SQ ONE (12:00)
[2017-07-29] MEDS: INSULIN REGULAR, HUMAN 100 UNIT/ML 3 ML VIAL SQ PRN ×3 (12:11→23:50)
[2017-07-29] MEDS: Z GUARD REMEDY 2 OZ OINT TP PRN (12:13)
--- NOTE | 2017-07-29 12:32 | NUR ---
RN NOTES PT ON HEMODIALYSIS ONGOING VIA HD CATH TO RCW. PRE-HD V/S CHECKED: BP 92/55 MMHG, P 71, R 18, T 98.3F, SP02 100%. DR DICKSON ORDERED BLOOD CULTURE X2, CALLED LAB TO COLLECT BLOOD. WILL CONTINUE TO MONITOR.
--- NOTE | 2017-07-29 14:20 | NUR ---
RN NOTES PT WITH HGB OF 8.8, EPOGEN 10,000/ML GIVEN ORDERED. WILL CONTINUE TO MONITOR
--- NOTE | 2017-07-29 14:37 | NUR ---
RN NOTES PT S/P HEMODIALYSIS WITH OUTPUT OF 300ML, NO ADVERSE REACTIONS NOTED. V/S CHECKED POST HD: BP 95/51 MMHG, P 76, R 18, T 97.9F, SP02 100%. WILL CONTINUE TO MONITOR. DRESSING TO HD CATHETER ON UPPER RCW INTACT, NO ACTIVE BLEEDING NOTED. WILL CONTINUE TO MONITOR.
[2017-07-29 16:00] VITALS: BP 101/40
--- NOTE | 2017-07-29 16:28 | NUR ---
RN NOTES PATIENT NOTED WITH ELEVATED WBC 11.9 AND URINE WBC TOO NUMEROUS TO COUNT, MD MADE AWARE WITH ORDER TO GIVE ABX LEVAQUIN 250MG Q48HRS, WILL CONTINUE TO MONITOR
[2017-07-29] MEDS ORDERED: LEVOFLOXACIN (250MG) 250 MG TABLET PO SCH (16:30)
[2017-07-29] MEDS: MIDODRINE HCL (5MG) 5 MG TABLET GT SCH (16:58)
[2017-07-29] MEDS ORDERED: LEVOFLOXACIN (250MG) 250 MG TABLET GT SCH (17:00)
--- NOTE | 2017-07-29 18:43 | NUR ---
RN CLOSING NOTES PT IN BED AT MODERATE HIGH BACKREST. OBTUNDED, NON-VERBAL, ABLE TO MOVE UPPER EXTREMITIES. MAINTAINED ON MECHANICAL VENT VIA TRACH AT PRESCRIBED SETTINGS, TOLERATING VENT SETTINGS WELL. TRACH SITE IS CLEAN DRY AND INTACT. ON TELE MONITORING WITH CURRENT READING OF SR WITH 1ST DEGREE HEART BLOCK AND HR OF 77. LCW HD CATH IN PLACED, CLEAN, INTACT AND PATENT. IV ACCESS ON RIGHT HAND G#20G INTACT AND PATENT WITH SALINE FLUSH. ON G-TUBE FEEDING OF NOVASOURCE AT 45ML/HR IN PROGRESS AND TOLERATING WELL. ASPIRATION PRECAUTIONS MAINTAINED. B/L SOFT WRIST IN PLACED TO PREVENT PT PULLING OUT TUBES. KEPT BED IN LOW/LOCKED POSITION WITH SIDE RAILS UP X 2. CALL LIGHT WITHIN REACH. ALL SAFETY MEASURES MAINTAINED. ALL NEEDS AND CARE PROVIDED WELL. WILL ENDORSED TO POWER PLANT OPERATOR NURSE FOR CHANTEL. .
--- NOTE | 2017-07-29 19:30 | NUR ---
RN/TELE NOTES: RECEIVED PT AWAKE IN BED. NON VERBAL. NO FACIAL GRIMACES OR MOANING NOTED. NOT IN ANY ACUTE DISTRESS NOTED. OBTUNDED, NON-VERBAL, ABLE TO MOVE UPPER EXTREMITIES. ON MECHANICAL VENT VIA TRACH AT TOLERATING SETTINGS WELL. TRACH SITE IS CLEAN DRY AND INTACT. ON TELE MONITORING WITH CURRENT READING OF SR W/ PVC WITH 1ST DEGREE BLOCK AND HR OF 80. LCW HD CATH IN PLACED. IV ACCESS ON RIGHT HAND G#20G INTACT AND PATENT W/ NO S/S OF INFECTION/INFILTRATION NOTED. BED IN LOW/LOCKED POSITION WITH SIDE RAILS UP X 2. CALL LIGHT WITHIN REACH. ALL SAFETY MEASURES MAINTAINED. WILL CONTINUE TO MONITOR PT ACCORDINGLY.
[2017-07-29 20:00] VITALS: BP_SYST 91; BP_SYST 99; BP_DIAS 46; BP_DIAS 55
[2017-07-29] MEDS: INSULIN DETEMIR 100 UNIT/ML CARTRIDGE SQ SCH (21:10)
[2017-07-30] VITALS: BP 92/48
--- NOTE | 2017-07-30 01:09 | NUR ---
RN/TELE NOTES: PT. W/ TEMP. OF 99.0. PRN TYLENOL GIVEN VIA GT. WILL CONTINUE TO MONITOR.
--- NOTE | 2017-07-30 01:15 | NUR ---
RN/TELE NOTES: CALLED DR. DAYANARA REGALADO FOR [facility] REGARDING PT. HAVING EPISODES OF VTAC. WAITING FOR A CALL BACK.
--- NOTE | 2017-07-30 01:52 | NUR ---
RN/TELE NOTES: CALL CENTER CALLED FROM [facility] STATING THAT IT IS DR. ANDREW IS ONCALL. WAITING FOR A CALL BACK.
--- NOTE | 2017-07-30 02:10 | NUR ---
RN/TELE NOTES: DR. ANDREW CALLED BACK AND INFORMED PT.'S HAVING EPISODES OF VTAC LONGEST ONE LASTING 6 SEC. W/ ORDERS TO START AMIODARONE DRIP BUT NO BOLUS. CHARGE NURSE MAGNO MADE AWARE OF IT.
[2017-07-30] MEDS ORDERED: AMIODARONE 150 MG/3 ML VIAL IV ONE (02:21)
[2017-07-30] MEDS ORDERED: AMIODARONE 900 MG in IV D5W 482 ML IV PRN (02:30)
--- NOTE | 2017-07-30 02:50 | NUR ---
LI/RN NOTES: AMIODARONE DRIP STARTED AT 0250 1MG/HR X 6 HRS. WILL CONTINUE TO MONITOR.
[2017-07-30 04:00] VITALS: BP 98/45
[2017-07-30] MEDS: BLOOD SUGAR DIAGNOSTIC 1 EACH STRIP IN SCH ×4 (05:13→23:23)
[2017-07-30] MEDS: INSULIN REGULAR, HUMAN 100 UNIT/ML 3 ML VIAL SQ PRN ×4 (05:16→23:25)
--- NOTE | 2017-07-30 06:53 | NUR ---
LI/RN NOTES: PT. IN BED RESTING W/ EYES CLOSED. W/ VENT/GTF TOLERATING WELL. HAS BILATERAL SOFT RESTRAINTS. NO FACIAL GRIMACES OR MOANING NOTED. CALL LIGHT W/REACH. REPORT GIVEN TO NEXT SHIFT NURSE TO CONTINUE TO CARE.
--- NOTE | 2017-07-30 07:30 | NUR ---
RN LI RECEIVED PATIENT AWAKE, ALERT MOVES HANDS FREELY SO PLACED ON RESTRAINT AFEBRILE ON MECHANICAL VENTILATORY SUPPORT SATURATING 100% SUCTIONED SECRETION PRN ON AMIODARONE DRIP TITRATED ORDERED MONITORED CLOSELY
[2017-07-30 08:00] VITALS: BP 112/67
[2017-07-30] MEDS: MIDODRINE HCL (5MG) 5 MG TABLET GT SCH ×3 (08:08→17:13)
--- NOTE | 2017-07-30 11:07 | NUR ---
WOUND CARE CONSULT PATIENT SEEN AND SKIN INTEGRITY ASSESSMENT DONE. PATIENT PRESENTS WITH TOTAL BODY 3+ PITTING/WEEPING EDEMA, SKIN TAUT AND SHINY AND WET TO ARMS. PATIENT WITH JAMARCUS AT 12. PATIENT WITH WT AT 275LBS, RECOMMEND ROSARIO MAX 2 BED WITH ETS AIR. TREATMENT RECOMMENDATIONS MADE AND DNP IN AGREEMENT. ALL SKIN MANAGEMENT DISCUSSED WITH NURSING AT THE BEDSIDE. PATIENT DOES ATTEMPT TO HIT WHEN CARE IS RENDERED. DNP IN AGREEMENT WITH PLAN OF CARE. Addendum: 07/30/17 at 1111 by CONNIE MELTON WNDNU Amended: Links added.
[2017-07-30 11:52] LABS: BASOPHILS # (AUTO) 0.1 /CMM (0.0-0.2); BASOPHILS % (AUTO) 1.3 % (0.0-2.0); EOSINOPHILS # (AUTO) 0.3 /CMM (0.0-0.7); EOSINOPHILS % (AUTO) 2.3 % (0.0-6.0); HEMATOCRIT 25 % (39-51); HEMOGLOBIN 8.2 g/dL (13.5-17.5); LYMPHOCYTES # (AUTO) 0.8 /CMM (0.8-4.8); LYMPHOCYTES % (AUTO) 7.2 % (20.0-44.0); MEAN CORPUSCULAR HEMOGLOBIN 31 PG (26.0-33.0); MEAN CORPUSCULAR HGB CONC 33 g/dl (31.0-36.0); MEAN CORPUSCULAR VOLUME 96 fL (80-96); MONOCYTES # (AUTO) 1.2 /CMM (0.1-1.30); MONOCYTES % (AUTO) 10.5 % (2.0-12.0); NEUTROPHILS # (AUTO) 9.1 /CMM (1.8-8.9); NEUTROPHILS % (AUTO) 78.7 % (43.0-81.0); PLATELET COUNT (AUTO) 260 /CMM (150-450); RDW COEFFICIENT OF VARIATION 19.1 (11.5-15.0); RED BLOOD CELL COUNT(AUTO) 2.62 MIL/uL (4.5-6.0); WHITE BLOOD COUNT (AUTO) 11.5 K/uL (4.3-11.0)
[2017-07-30 12:00] VITALS: BP 102/50
[2017-07-30 12:06] LABS: CALCIUM, SERUM 9.9 mg/dL (8.5-10.1); CARBON DIOXIDE 25 mmol/L (21-32); CHLORIDE 98 mmol/L (98-107); CREATININE 2.7 mg/dL (0.6-1.3); GLUCOSE 277 mg/dL (74-106); PHOSPHORUS 2.7 mg/dL (2.5-4.9); POTASSIUM 3.5 mmol/L (3.5-5.1); SODIUM SERUM 133 mmol/L (136-145); UREA NITROGEN, BLOOD 42 mg/dL (7-18)
[2017-07-30 13:23] LABS: THYROID STIMULATING HORMONE 7.344 uIU/mL (0.358-3.74)
[2017-07-30] MEDS ORDERED: CEFTRIAXONE 1 G in IV D5W 50 ML IV SCH (18:00)
[2017-07-30] MEDS ORDERED: DOSING PER PHARMACY-AMIKACI IV XX PRN (19:00)
[2017-07-30] MEDS ORDERED: PERMETHRIN 5% CRM 60 GM TUBE TP ONE (19:00)
[2017-07-30] MEDS ORDERED: AMIKACIN 500 MG in IV D5W 100 ML IV PRN (19:00)
[2017-07-30] MEDS ORDERED: VANCOMYCIN 500 MG in IV D5W 100 ML IV PRN (19:00)
[2017-07-30] MEDS ORDERED: FEE PK DOSING 1 MIN EA MC ONE ×2 (19:16)
[2017-07-30 20:00] VITALS: BP 122/46
[2017-07-30] MEDS ORDERED: AMIKACIN 500 MG in IV D5W 100 ML IV ONE (20:00)
[2017-07-30] MEDS ORDERED: VANCOMYCIN 1 GM in IV D5W 250 ML IV ONE (21:00)
[2017-07-30] MEDS: INSULIN DETEMIR 100 UNIT/ML CARTRIDGE SQ SCH (22:46)
[2017-07-31] VITALS: BP 104/40
[2017-07-31] MEDS: RENAL NOVASOURCE 1,000 ML BOTTLE GT PRN ×2 (03:40→23:26)
[2017-07-31 04:00] VITALS: BP 107/53
[2017-07-31] MEDS: INSULIN REGULAR, HUMAN 100 UNIT/ML 3 ML VIAL SQ PRN ×4 (05:18→23:34)
[2017-07-31] MEDS: BLOOD SUGAR DIAGNOSTIC 1 EACH STRIP IN SCH ×4 (05:19→23:26)
--- NOTE | 2017-07-31 05:25 | NUR ---
MANAGER OF RECRUITING DF ACCU CHECK OF 298 COVERED WITH 6 UNITS INSULIN, TOLERATING TUBE FEEDING OF NS @ 45ML/HR. ELIMITE CREAM APPLIED @0200.UNABLE TO APPLY EARLIER 2ND LIMITED MAILING MANAGER STAFF AVAIL ON UNIT. PT MOVED TO [facility].VSS NAD NOTED.
--- NOTE | 2017-07-31 07:15 | NUR ---
RN NOTES RECEIVED PATIENT OPENS EYES , , NON VERBAL , RESPONSIVE TO VERBAL STIMULI , NOT IN ACUTE DISTRESS , RESPIRATIONS EVEN AND UNLABORED , SPO2 OF 100% VIA MECHANICAL VENTILATOR SETTINGS ORDERED , SR WITH 1ST DEGREE AV BLOCK 75 ON SEO CONSULTANT , GT PATENT AND INTACT WITH NOVASOURCE @ 45ML/HR INFUSING WELL WITH NO RESIDUALS NOTED , R HAND # 20 PATENT AND INTACT WITH NS @ TKO R CHEST WALL HD CATH C/D/I , ALL NEEDS ATTENDED , BED ON LOW AND LOCKED POSITION , SIDE RAILS X2 ,CALL LIGHT WITHIN REACH , HOB @ 35 , ISOLATION PRECAUTION OBSERVED , WILL CONTINUE TO MONITOR
[2017-07-31 08:00] VITALS: BP 107/57
--- NOTE | 2017-07-31 09:00 | NUR ---
RN NOTES SPOKE WITH DR ZACARIAS FOR CARDIOLOGY CONSULT , PT IS ON AMIODARONE DRIP DUE TO EPISODES OF SVT AT 0200 AM , PER MD HE WILL SEE THE PT
[2017-07-31] MEDS: MIDODRINE HCL (5MG) 5 MG TABLET GT SCH ×3 (09:12→17:13)
--- NOTE | 2017-07-31 10:00 | NUR ---
RN NOTES DR ZACARIAS ORDERED TO DC AMIODARONE DRIP , ORDERS CARRIED OUT
[2017-07-31 10:11] LABS: BASOPHILS % (AUTO) 0.1 % (0.0-2.0); EOSINOPHILS # (AUTO) 0.3 /CMM (0.0-0.7); EOSINOPHILS % (AUTO) 2.7 % (0.0-6.0); HEMATOCRIT 25 % (39-51); HEMOGLOBIN 8.3 g/dL (13.5-17.5); LYMPHOCYTES # (AUTO) 0.8 /CMM (0.8-4.8); LYMPHOCYTES % (AUTO) 7.1 % (20.0-44.0); MEAN CORPUSCULAR HEMOGLOBIN 31 PG (26.0-33.0); MEAN CORPUSCULAR HGB CONC 33 g/dl (31.0-36.0); MEAN CORPUSCULAR VOLUME 96 fL (80-96); MONOCYTES % (AUTO) 8.7 % (2.0-12.0); NEUTROPHILS # (AUTO) 9.7 /CMM (1.8-8.9); NEUTROPHILS % (AUTO) 81.4 % (43.0-81.0); PLATELET COUNT (AUTO) 249 /CMM (150-450); RDW COEFFICIENT OF VARIATION 18.5 (11.5-15.0); RED BLOOD CELL COUNT(AUTO) 2.64 MIL/uL (4.5-6.0)
[2017-07-31 10:23] LABS: CARBON DIOXIDE 23 mmol/L (21-32); CHLORIDE 98 mmol/L (98-107); CREATININE 3.3 mg/dL (0.6-1.3); GLUCOSE 290 mg/dL (74-106); MAGNESIUM 2.1 mg/dL (1.8-2.4); PHOSPHORUS 2.7 mg/dL (2.5-4.9); POTASSIUM 3.7 mmol/L (3.5-5.1); SODIUM SERUM 134 mmol/L (136-145); UREA NITROGEN, BLOOD 51 mg/dL (7-18)
--- NOTE | 2017-07-31 11:50 | NUR ---
RN NOTES PT STABLE PRIOR TO HD , V/S STABLE AFEBRILE , WILL CONTINUE TO MONITOR
[2017-07-31 12:00] VITALS: BP 103/54
--- NOTE | 2017-07-31 14:08 | NUR ---
RN NOTES PT STABLE POST HD , 99/40 , HR 78 , AFEBRILE , NOT IN ACUTE DISTRESS , WILL GIVE VANCOMYCIN POST HD , WILL HOLD AMIKACIN POST HD AMIKACIN THOUGH IS 11.1 , PHARMACIST BRAULIO ALETHEA
[2017-07-31 16:00] VITALS: BP 104/69
[2017-07-31] MEDS ORDERED: VANCOMYCIN 1 GM in IV D5W 250 ML IV ONE (16:00)
--- NOTE | 2017-07-31 19:30 | NUR ---
SMALL CRAFT OPERATOR RCD PT W/DX HYPOTENSION; PT IS ALERT; NON VERBAL; PT ON BL SOFT WRIST RESTRAINTS D/T PT SCRATCHING LESLIE; PT NOTED WITH MULTIPLE SCRATCH ELMORE ON BUE AND ABDOMEN; PT R/O SCABIES.
[2017-07-31 20:00] VITALS: BP 121/56
--- NOTE | 2017-07-31 23:27 | NUR ---
ASSEMBLY MACHINE TENDER ACCU CHECK 232; 4 UNITS REGULAR INSULIN SQ GIVEN.
[2017-07-31] MEDS: INSULIN DETEMIR 100 UNIT/ML CARTRIDGE SQ SCH (23:32)
[2017-08-01] VITALS: BP 102/46
--- NOTE | 2017-08-01 | NUR ---
PACKER DRIED BEEF TEMP 100.7 INITIATED COOLING MEASURES. CONTINUE TO MONITOR.
[2017-08-01 04:00] VITALS: BP 107/55
--- NOTE | 2017-08-01 05:39 | NUR ---
GREEN CHAIN MARKER ACCU CHECK 244; 4 UNITS REGULAR INSULIN ADMINISTERED.
[2017-08-01] MEDS: BLOOD SUGAR DIAGNOSTIC 1 EACH STRIP IN SCH ×4 (06:04→23:00)
[2017-08-01] MEDS: INSULIN REGULAR, HUMAN 100 UNIT/ML 3 ML VIAL SQ PRN ×4 (06:06→23:01)
--- NOTE | 2017-08-01 06:41 | NUR ---
ASSISTANT OFFICE MANAGER ATTEMPTED TO REMOVE BLSWR HOWEVER PT STARTS TO SCRATCH HIS ARMS AND STARTS PULLING AT TRACH SITE. RESTRAINTS REMAIN IN PLACE FOR PT SAFETY.
[2017-08-01 07:29] LABS: BASOPHILS % (AUTO) 0.2 % (0.0-2.0); EOSINOPHILS # (AUTO) 0.2 /CMM (0.0-0.7); EOSINOPHILS % (AUTO) 2.2 % (0.0-6.0); HEMATOCRIT 25 % (39-51); HEMOGLOBIN 8.4 g/dL (13.5-17.5); LYMPHOCYTES % (AUTO) 9.6 % (20.0-44.0); MEAN CORPUSCULAR HEMOGLOBIN 32 PG (26.0-33.0); MEAN CORPUSCULAR HGB CONC 33 g/dl (31.0-36.0); MEAN CORPUSCULAR VOLUME 96 fL (80-96); MONOCYTES # (AUTO) 1.3 /CMM (0.1-1.30); MONOCYTES % (AUTO) 12.2 % (2.0-12.0); NEUTROPHILS # (AUTO) 7.8 /CMM (1.8-8.9); NEUTROPHILS % (AUTO) 75.8 % (43.0-81.0); PLATELET COUNT (AUTO) 222 /CMM (150-450); RDW COEFFICIENT OF VARIATION 19.3 (11.5-15.0); RED BLOOD CELL COUNT(AUTO) 2.62 MIL/uL (4.5-6.0); WHITE BLOOD COUNT (AUTO) 10.3 K/uL (4.3-11.0)
[2017-08-01 07:53] LABS: CALCIUM, SERUM 9.7 mg/dL (8.5-10.1); CARBON DIOXIDE 26 mmol/L (21-32); CHLORIDE 98 mmol/L (98-107); GLUCOSE 256 mg/dL (74-106); POTASSIUM 3.6 mmol/L (3.5-5.1); SODIUM SERUM 136 mmol/L (136-145); UREA NITROGEN, BLOOD 44 mg/dL (7-18)
[2017-08-01 08:00] VITALS: BP 121/49
[2017-08-01] MEDS: MIDODRINE HCL (5MG) 5 MG TABLET GT SCH ×3 (09:12→18:30)
[2017-08-01 12:00] VITALS: BP 99/46
--- NOTE | 2017-08-01 14:32 | NUR ---
RN NOTE PT FEELS ITCHY, UNEASY, MOVES IN BED AND SCRATCHES ARMS. WILL FOLLOW UP WITH MD.
[2017-08-01 16:00] VITALS: BP 95/47
--- NOTE | 2017-08-01 19:32 | NUR ---
PT RECEIVED TRACH ON VENT. SUCTIONED SMALL AMOUNT OF WHITE THICK SECRETIONS. VENT ALARMS SET AND AUDIBLE. AMBU BAG AT BEDSIDE. VENT PLUGGED INTO RED OUTLET. NO RESPIRATORY DISTRESS AT THIS TIME, WILL CONTINUE TO MONITOR THE PT.
[2017-08-01 20:00] VITALS: BP 118/55
--- NOTE | 2017-08-01 20:00 | NUR ---
BOSTON CUTTER RCD PT W/DX HYPOTENSION; PT IS NONVERBAL; NSR W/FIRST DEGREE AV BLOCK ON MONITOR. TOLERATED PRESCRIBED VENT SETTINGS. PT HAS LARGE AMOUNT OF THICK WHITE SECRETION. PT IS ISOLATION TO R/O SCABIES. GTUBE WITH NOVASOURCE AT 45 ML/HR NO RESIDUAL AT THIS TIME. CONTINUE TO MONITOR.
--- NOTE | 2017-08-01 22:43 | NUR ---
PROCESS EXCELLENCE MANAGER ACCU CHECK 230 INSULIN GIVEN PER SLIDING SCALE.
[2017-08-01] MEDS: INSULIN DETEMIR 100 UNIT/ML CARTRIDGE SQ SCH (22:59)
[2017-08-02] VITALS: BP 109/46
[2017-08-02 04:00] VITALS: BP_SYST 109; BP_SYST 112; BP_DIAS 46; BP_DIAS 54
--- NOTE | 2017-08-02 04:00 | NUR ---
PEARL MAKER RENDERED ORAL CARE AND GAVE COMPLETE BED BATH; PT TOLERATED WELL. CONTINUE TO MONITOR.
--- NOTE | 2017-08-02 05:13 | NUR ---
CLOUD OPERATIONS ENGINEER ACCU CHECK 160 INSULIN GIVEN PER SLIDING SCALE.
[2017-08-02] MEDS: BLOOD SUGAR DIAGNOSTIC 1 EACH STRIP IN SCH ×4 (05:46→23:23)
[2017-08-02] MEDS: LEVOTHYROXINE SODIUM 100 MCG TABLET GT SCH (05:46)
[2017-08-02] MEDS: INSULIN REGULAR, HUMAN 100 UNIT/ML 3 ML VIAL SQ PRN ×4 (05:48→23:15)
[2017-08-02 08:00] VITALS: BP 105/55
[2017-08-02] MEDS ORDERED: HYDROGEL DRESSING 90 GM TUBE TP PRN (08:30)
--- NOTE | 2017-08-02 08:32 | NUR ---
WOUND CARE CONSULT: PT PRESENTS WITH RT HAND DISCOLORED AREA. DEFER TO MD. DISCUSSED WITH TERESA LE, SURGICAL SLATER APPRENTICE. NO DRAINAGE NOTED. PT NOTED TO HAVE WEEPING EDEMA WITH PITTING (2+) TO UPPER AND LOWER EXTREMITIES. MULTIPLE BRUISES, FEW SKIN TEARS NOTED TO ARMS. SCRATCHES AND SMALL ABRASION NOTED TO LEFT LATERAL THIGH AND LEFT BACK AREAS. PT SCRATCHES AT HIS SKIN AT TIMES PER NURSING STAFF. 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 CRUSTED AREA NOTED TO ABDOMEN, NO DRAINAGE. PT ON BARIMAX BED WITH ETS AIR. ALL SKIN PROTECTION MEASURES AND WOUND RECOMMENDATIONS DISCUSSED WITH NURSING STAFF AND SURGICAL N.P. WILL SEE PRN. SABA IN AGREEMENT WITH PLAN OF CARE.
[2017-08-02] MEDS: FLUDROCORTISONE 0.1 MG TABLET GT SCH (09:43)
[2017-08-02] MEDS: MIDODRINE HCL (5MG) 5 MG TABLET GT SCH ×3 (09:43→17:58)
[2017-08-02] MEDS: RENAL NOVASOURCE 1,000 ML BOTTLE GT PRN (09:45)
[2017-08-02] MEDS: diphenhydrAMINE HCL 50 MG/ML VIAL IV PRN ×2 (10:20→18:00)
[2017-08-02 12:00] VITALS: BP 97/58
[2017-08-02] MEDS ORDERED: ALBUMIN 25% 25 GM in PREMIX 1 EA IV ONE (14:30)
[2017-08-02 16:00] VITALS: BP 101/49
[2017-08-02] MEDS: ALBUMIN 25% 25 GM in PREMIX 1 EA IV PRN (17:58)
[2017-08-02] MEDS: HYDROGEL DRESSING 90 GM TUBE TP SCH (17:58)
[2017-08-02] MEDS: VANCOMYCIN 500 MG in IV D5W 100 ML IV PRN (19:57)
[2017-08-02 20:00] VITALS: BP 106/65
--- NOTE | 2017-08-02 20:00 | NUR ---
TELE 1 RN NOTE PT IN BED AWAKE. NON VERBAL. ON VENT/TRACH. TOLERATING THE SETTINGS WELL. ON TELE SR HR 65. NO DISTRESS OR DISCOMFORT NOTED. NO S/S OF PAIN NOTED. PT REMAIN IN ISOLATION FOR R/O SCABIES. NOTED PT IS TRYING TO SCRATCH HIS RFA. ON SOFT WRIST RESTRAINT BILATERALLY. GT FEEDING NOVASOURCE INFUSING AT 45 ML/HR, 0 ML RESIDUAL NOTED. HUNGED VANCO IV ATB. NO S/S OF INFILTRATION NOTED SHEILA MIDLINE #18 G. HD CATH INTACT RCW. NO S/S OF HYPO OR HYPERGLYCEMIA NOTED. REPOSITION HIM FOR SKIN MANAGEMENT AND COMFORT. ALL NEEDS ATTENDED. SIDE RAILS UP X 3 AND CALL LIGHT WITHIN REACH. CONTINUE TO MONITOR HIM.
[2017-08-02] MEDS: INSULIN DETEMIR 100 UNIT/ML CARTRIDGE SQ SCH (23:13)
[2017-08-03] VITALS (7 sets, daily range): BP systolic 91–124; BP diastolic 43–73
[2017-08-03] MEDS: BLOOD SUGAR DIAGNOSTIC 1 EACH STRIP IN SCH ×4 (05:38→23:34)
[2017-08-03] MEDS: LEVOTHYROXINE SODIUM 100 MCG TABLET GT SCH (05:59)
[2017-08-03] MEDS: INSULIN REGULAR, HUMAN 100 UNIT/ML 3 ML VIAL SQ PRN ×4 (06:01→23:34)
--- NOTE | 2017-08-03 06:31 | NUR ---
INSIDE SALES AGENT 1 NOTE NO CHANGE IN CONDITION. PT IS AWAKE. SUCTIONED HIM NEEDED. ON TELE SR HR 67. SIDE RAILS UP X 2 AND CALL LIGHT WITHIN REACH. VSS. REPOSITION HIM Q2H, KEPT HIM DRY AND CLEAN. GT FEEDING INFUSING WELL, 0 ML RESIDUAL NOTED. WILL ENDORSE TO DAY SHIFT NURSE FOR CONTINUE TO CARE.
--- NOTE | 2017-08-03 07:11 | NUR ---
Gurmeet pt received on mechanical vent. Pt trach is secure. Vent is plugged into a red outlet, alarms are set and audible, and BVM is at bedside. Addendum: 08/03/17 at 0712 by QUINTON BEARD RT Amended: Links added.
[2017-08-03 07:27] LABS: BASOPHILS # (AUTO) 0.1 /CMM (0.0-0.2); BASOPHILS % (AUTO) 0.7 % (0.0-2.0); EOSINOPHILS # (AUTO) 0.5 /CMM (0.0-0.7); EOSINOPHILS % (AUTO) 4.3 % (0.0-6.0); HEMATOCRIT 26 % (39-51); HEMOGLOBIN 8.7 g/dL (13.5-17.5); LYMPHOCYTES # (AUTO) 1.8 /CMM (0.8-4.8); MEAN CORPUSCULAR HEMOGLOBIN 31 PG (26.0-33.0); MEAN CORPUSCULAR HGB CONC 33 g/dl (31.0-36.0); MEAN CORPUSCULAR VOLUME 95 fL (80-96); MONOCYTES # (AUTO) 1.3 /CMM (0.1-1.30); MONOCYTES % (AUTO) 10.8 % (2.0-12.0); NEUTROPHILS # (AUTO) 8.5 /CMM (1.8-8.9); NEUTROPHILS % (AUTO) 69.2 % (43.0-81.0); PLATELET COUNT (AUTO) 248 /CMM (150-450); RDW COEFFICIENT OF VARIATION 19.5 (11.5-15.0); RED BLOOD CELL COUNT(AUTO) 2.77 MIL/uL (4.5-6.0); WHITE BLOOD COUNT (AUTO) 12.2 K/uL (4.3-11.0)
[2017-08-03 07:41] LABS: CALCIUM, SERUM 10.2 mg/dL (8.5-10.1); CARBON DIOXIDE 28 mmol/L (21-32); CHLORIDE 96 mmol/L (98-107); CREATININE 3.5 mg/dL (0.6-1.3); GLUCOSE 236 mg/dL (74-106); POTASSIUM 3.3 mmol/L (3.5-5.1); SODIUM SERUM 135 mmol/L (136-145); UREA NITROGEN, BLOOD 52 mg/dL (7-18)
--- NOTE | 2017-08-03 07:51 | NUR ---
LINING MACHINE OPERATOR INITIAL NOTE RECEIVED PT IN BED AWAKE. NON VERBAL. VENT/TRACH. TOLERATING THE SETTINGS WELL. ON TELE SR . NO DISTRESS OR DISCOMFORT NOTED. PT REMAIN IN ISOLATION FOR R/O SCABIES. PATIENT HAS ON BILATERAL SOFT WRIST RESTRAINT GT FEEDING NOVASOURCE INFUSING AT 45 ML/HR, NOL RESIDUAL NOTED AT THIS TIME. SHEILA MIDLINE #18 G. HD CATH INTACT RCW. SIDE RAILS UP X 3 CALL LIGHT WITHIN REACH. RN WILL CONTINUE TO MONITOR THROUGHOUT THE DAY .
[2017-08-03] MEDS: MIDODRINE HCL (5MG) 5 MG TABLET GT SCH ×3 (08:44→16:32)
[2017-08-03] MEDS: FLUDROCORTISONE 0.1 MG TABLET GT SCH (08:44)
[2017-08-03] MEDS: HYDROGEL DRESSING 90 GM TUBE TP SCH (08:46)
[2017-08-03] MEDS: RENAL NOVASOURCE 1,000 ML BOTTLE GT PRN (13:26)
--- NOTE | 2017-08-03 18:43 | NUR ---
RN CLOSING NOTE PATIENT IN BED NO SOB NOTED INCREASED SECRETIONS NOTED , PATIENT TOLERATED VENT SETTINGS WELL, PATIENT TURNED AND REPOSITIONED Q 2HRS PATIENT, SHOWS NO SIGNS OF PAIN OR DISCOMFORT AT THIS TIME. PATIENT ISOLATION WAS D/C'D DUE TO NO MORE RASHES - CHEMICAL PRODUCTION TECHNICIAN SPOKE WITH CHARGE NURSE AND PATIENT NURSE RN WILL ENDORSE CARE TO PM RN
--- NOTE | 2017-08-03 20:00 | NUR ---
TELE 1 RN NOTE PT IN BED AWAKE. NON VERBAL. ON VENT/TRACH. TOLERATING THE SETTINGS WELL. ON TELE SR HR 67. NO DISTRESS OR DISCOMFORT NOTED. NO S/S OF PAIN NOTED. PT STILL TRYING TO SCRATCH HIS RFA. ON SOFT WRIST RESTRAINT BILATERALLY. GT FEEDING NOVASOURCE INFUSING AT 45 ML/HR, 0 ML RESIDUAL NOTED. SHEILA MIDLINE # 18 G INTACT AND PATENT, NO S/S OF INFILTRATION NOTED HD CATH INTACT RCW. NO S/S OF HYPO OR HYPERGLYCEMIA NOTED. REPOSITION HIM FOR SKIN MANAGEMENT AND COMFORT. ALL NEEDS ATTENDED. SIDE RAILS UP X 3 AND CALL LIGHT WITHIN REACH. CONTINUE TO MONITOR HIM.
[2017-08-03] MEDS: INSULIN DETEMIR 100 UNIT/ML CARTRIDGE SQ SCH (23:34)
[2017-08-04] VITALS (7 sets, daily range): BP systolic 91–166; BP diastolic 47–95
[2017-08-04] MEDS: LEVOTHYROXINE SODIUM 100 MCG TABLET GT SCH (05:40)
[2017-08-04] MEDS: INSULIN REGULAR, HUMAN 100 UNIT/ML 3 ML VIAL SQ PRN ×3 (05:43→17:33)
[2017-08-04] MEDS: BLOOD SUGAR DIAGNOSTIC 1 EACH STRIP IN SCH ×3 (05:45→17:25)
--- NOTE | 2017-08-04 06:26 | NUR ---
VICTIM WITNESS ADMINISTRATOR 1 NOTE PT IN BED ASLEEP, AROUSABLE, NO DISTRESS OR DISCOMFORT NOTED. NO S/S OF PAIN NOTED. . SUCTIONED HIM NEEDED. ON TELE SR HR 67. SIDE RAILS UP X 3 AND CALL LIGHT WITHIN REACH. VSS. REPOSITION HIM Q2H, KEPT HIM DRY AND CLEAN. GT FEEDING INFUSING WELL, 0 ML RESIDUAL NOTED. WILL ENDORSE TO DAY SHIFT NURSE FOR CONTINUE TO CARE.
--- NOTE | 2017-08-04 07:30 | NUR ---
HAND DEICER ELEMENT WINDER AM NOTES RECEIVED PT IN BED AWAKE. NON VERBAL. WITH PORTEX #7, ON MECHANICAL VENT, SETTINGS ORDERED, TOLERATING WELL, NOT IN ANY DISTRESS, BREATHING EVEN AND UNLABORED, TELEMETRY READS SR WITH PVC AND 1 DEG AVB HR 69, NO SIGNS OF ANY CHEST DISCOMFORT AT THIS TIME. SHEILA MIDLINE G 18, FLUSHES WELL, SITE CLEAR, RCW HD CATH CDI DRESSING, ONGOING GTF NOVASOURCE 45 ML/HR, O RESIDUAL, CDI DRESSING, PATIENT HAS ON BILATERAL SOFT WRIST RESTRAINT IN PLACE, RELEASED AND CHECKED WITH GOOD PULSE AND CIRCULATION. SIDE RAILS UP X 3 CALL LIGHT WITHIN REACH. RN WILL CONTINUE TO MONITOR THROUGHOUT THE DAY .
--- NOTE | 2017-08-04 07:37 | NUR ---
Pt received on mechanical ventilator. Pt trach is secure. Vent is plugged into a red outlet, alarms are set and audible, and BVM is at bedside. Addendum: 08/04/17 at 0738 by QUINTON BEARD RT Amended: Links added.
[2017-08-04 07:51] LABS: CREATININE 4.3 mg/dL (0.6-1.3); GLUCOSE 273 mg/dL (74-106); UREA NITROGEN, BLOOD 71 mg/dL (7-18)
[2017-08-04 08:03] LABS: CARBON DIOXIDE 28 mmol/L (21-32); CHLORIDE 96 mmol/L (98-107); POTASSIUM 3.8 mmol/L (3.5-5.1); SODIUM SERUM 136 mmol/L (136-145)
[2017-08-04] MEDS: MIDODRINE HCL (5MG) 5 MG TABLET GT SCH ×3 (09:00→17:25)
[2017-08-04] MEDS: FLUDROCORTISONE 0.1 MG TABLET GT SCH (09:15)
[2017-08-04] MEDS: HYDROGEL DRESSING 90 GM TUBE TP SCH (09:16)
[2017-08-04] MEDS: RENAL NOVASOURCE 1,000 ML BOTTLE GT PRN (09:18)
--- NOTE | 2017-08-04 09:30 | NUR ---
RN NOTES ADMINISTERED DUE MEDS.
--- NOTE | 2017-08-04 12:08 | NUR ---
N NOTES ACCUCHECK DONE. BS 235 MG/DL. ADMINISTERED 4 UNITS HUM R PER SS.
--- NOTE | 2017-08-04 17:30 | NUR ---
RN NOTES ACCUCHECK DONE. BS 241 MG/DL. ADMINISTERED 4 UNITS HUM R PER SS.
--- NOTE | 2017-08-04 18:34 | NUR ---
CHIEF INVESTMENT OFFICER CLOSING NOTES PT IN BED AWAKE. RESTING, NON VERBAL. WITH PORTEX #7, ON MECHANICAL VENT, SETTINGS ORDERED, TOLERATING WELL, NOT IN ANY DISTRESS, BREATHING EVEN AND UNLABORED, TELEMETRY READS SR HR 76, NO SIGNS OF ANY CHEST DISCOMFORT AT THIS TIME. SHEILA MIDLINE G 18, FLUSHES WELL, SITE CLEAR, RCW HD CATH CDI DRESSING, ONGOING GTF NOVASOURCE 45 ML/HR, 10ML RESIDUAL, CDI DRESSING, PATIENT HAS ON BILATERAL SOFT WRIST RESTRAINT IN PLACE, RELEASED AND CHECKED FOR CIRCULATION EVERY 2 HOURS, TURNED AND REPOSITIONED EVERY 2 HOURS, PM CARE DONE, PRESCRIBED WOUND TREATMENT. ALL NEEDS MET, NO OTHER SIGNIFICANT CHANGE IN CONDITION. SIDE RAILS UP X 3 CALL LIGHT WITHIN REACH. WILL ENDORSE TO NEXT SHIFT FOR CHANTEL.
--- NOTE | 2017-08-04 19:00 | NUR ---
Rn Notes Received with Hemodialysis in progress,patient lethargic ,arousable,responds to pain opens eyes.With tracheostomy to the ventilator on AC mode.No SOB,pulmonary toileting done .Peg tube with ongoing feeding ,tolerating well.Patient extremely edematous all over.Biateral soft wrist restraints .Comfort care done,needs attended.
[2017-08-04] MEDS: ALBUMIN 25% 25 GM in PREMIX 1 EA IV PRN (20:17)
--- NOTE | 2017-08-04 21:00 | NUR ---
RN NOtes Hemodialysis [id number] fluid pulled.Tolerated dialysis.
[2017-08-04] MEDS: INSULIN DETEMIR 100 UNIT/ML CARTRIDGE SQ SCH (21:30)
[2017-08-04] MEDS: VANCOMYCIN 500 MG in IV D5W 100 ML IV PRN (21:31)
[2017-08-05] VITALS: BP 89/44
--- NOTE | 2017-08-05 | NUR ---
Rn Notes Remains stable on the ventilator.aM care /bath done by HAND THERAPIST ,tolerated well.
[2017-08-05] MEDS: INSULIN REGULAR, HUMAN 100 UNIT/ML 3 ML VIAL SQ PRN ×5 (02:00→23:49)
[2017-08-05 04:00] VITALS: BP 89/35
[2017-08-05] MEDS: BLOOD SUGAR DIAGNOSTIC 1 EACH STRIP IN SCH ×5 (05:49→23:44)
--- NOTE | 2017-08-05 06:00 | NUR ---
RN NOTES Remains stable tolerating vent settings,no SOB noted,lethargic but easily responsive to pain and even to name at times,moves upper extremities ,maintained on bilateral soft wrist restraints.Tolerating tube feeding.Continue comfort care.
[2017-08-05] MEDS: LEVOTHYROXINE SODIUM 100 MCG TABLET GT SCH (06:19)
[2017-08-05] MEDS: RENAL NOVASOURCE 1,000 ML BOTTLE GT PRN (06:22)
[2017-08-05 07:35] LABS: CALCIUM, SERUM 10.5 mg/dL (8.5-10.1); CARBON DIOXIDE 28 mmol/L (21-32); CHLORIDE 102 mmol/L (98-107); CREATININE 3.7 mg/dL (0.6-1.3); GLUCOSE 249 mg/dL (74-106); SODIUM SERUM 142 mmol/L (136-145); UREA NITROGEN, BLOOD 56 mg/dL (7-18)
[2017-08-05 08:00] VITALS: BP 91/44
[2017-08-05] MEDS: MIDODRINE HCL (5MG) 5 MG TABLET GT SCH ×3 (09:07→17:48)
[2017-08-05] MEDS: HYDROGEL DRESSING 90 GM TUBE TP SCH (09:07)
[2017-08-05] MEDS: FLUDROCORTISONE 0.1 MG TABLET GT SCH (09:07)
[2017-08-05] MEDS: Z GUARD REMEDY 2 OZ OINT TP PRN (09:08)
--- NOTE | 2017-08-05 10:00 | NUR ---
RN NOTES: PT TOLERATED HD W/ NO OUTPUT. HD DONE BY ELIAN.
[2017-08-05 12:00] VITALS: BP_SYST 92; BP_DIAS 39; BP_DIAS 93
[2017-08-05 16:00] VITALS: BP 112/45
--- NOTE | 2017-08-05 18:34 | NUR ---
RN CLOSING NOTES: NO ACUTE CHANGES NOTED W/IN SHIFT. PT TOLERATED MECH VENT SETTINGS VIA TRACH, NO SOB. ON TELEMONITOR, STILL SR. PEG KEPT PATENT & INTACT, ON CONT TUBE FEEDING NOVASOURCE 45 CC/HR TOLERATED WELL, NO RESIDUAL W/IN SHIFT. JUANITA MIDLINE, SL, KEPT PATENT & INTACT W/ NO S/SX OF INFECTION/ INFILTRATION NOTED. R SUBCLAVIAN PERMACATH KEPT IN PLACE. STILL HAS B WRIST SOFT RESTRAINTS ON, CIRCULATION CHECKED. SUCTIONED SECRETIONS. WOUND CARE DONE. KEPT WELL RESTED. NEEDS ATTENDED. BED KEPT LOW & IN LOCKED POS. CALL LIGHT PLACED W/IN REACH. WILL ENDORSE TO PM RN FOR CHANTEL.
[2017-08-05 20:00] VITALS: BP 107/57
--- NOTE | 2017-08-05 20:12 | NUR ---
RN INITIAL TEL NOTES: REC'D PT ON BED, NOT IN ANY DISTRESS, AWAKE. ON MECH VENT VIA TRACH, NO SOB. ON TELEMONITOR, SR. HAS PEG PATENT & INTACT, ON CONT TUBE FEEDING NOVASOURCE 45 CC/HR INFUSING WELL. HAS JUANITA MIDLINE, SL, FLUSHED, PATENT & INTACT W/ NO S/SX OF INFECTION/ INFILTRATION NOTED. HAS SUBCLAVIAN PERMACATH IN PLACE. HAS B WRIST SOFT RESTRAINTS ON, STILL NOTED PULLING OUT LINES. PROVIDED COMFORT & SAFETY MEASURES. BED KEPT LOW & IN LOCKED POS. CALL LIGHT PLACED W/IN REACH. WILL CONTINUE TO MONITOR & ATTEND PT NEEDS.
[2017-08-05] MEDS: INSULIN DETEMIR 100 UNIT/ML CARTRIDGE SQ SCH (23:46)
[2017-08-06] VITALS (7 sets, daily range): BP systolic 100–125; BP diastolic 50–80
[2017-08-06] MEDS: LEVOTHYROXINE SODIUM 100 MCG TABLET GT SCH (05:40)
[2017-08-06] MEDS: RENAL NOVASOURCE 1,000 ML BOTTLE GT PRN (05:42)
[2017-08-06] MEDS: INSULIN REGULAR, HUMAN 100 UNIT/ML 3 ML VIAL SQ PRN ×5 (05:44→23:31)
[2017-08-06] MEDS: BLOOD SUGAR DIAGNOSTIC 1 EACH STRIP IN SCH ×4 (05:45→23:26)
--- NOTE | 2017-08-06 06:17 | NUR ---
RN CLOSING TEL NOTES: ENDORSED PT ON BED, , AWAKE. ON MECH VENT VIA TRACH, NO SOB. ON TELEMONITOR, SR. HAS PEG PATENT & INTACT, ON CONT TUBE FEEDING NOVASOURCE 45 CC/HR INFUSING WELL. HAS JUANITA MIDLINE, SL, FLUSHED, PATENT & INTACT W/ NO S/SX OF INFECTION/ INFILTRATION NOTED. HAS SUBCLAVIAN PERMACATH IN PLACE. HAS B WRIST SOFT RESTRAINTS ON, STILL NOTED PULLING OUT LINES. PROVIDED COMFORT & SAFETY MEASURES. BED KEPT LOW & IN LOCKED POS. CALL LIGHT PLACED W/IN REACH. WILL CONTINUE TO MONITOR & ATTEND PT NEEDS.
[2017-08-06 07:04] LABS: CALCIUM, SERUM 10.9 mg/dL (8.5-10.1); CARBON DIOXIDE 28 mmol/L (21-32); CHLORIDE 102 mmol/L (98-107); CREATININE 4.4 mg/dL (0.6-1.3); GLUCOSE 237 mg/dL (74-106); POTASSIUM 4.6 mmol/L (3.5-5.1); SODIUM SERUM 141 mmol/L (136-145); UREA NITROGEN, BLOOD 79 mg/dL (7-18); VANCOMYCIN,TROUGH 16 ug/ml (12-20)
--- NOTE | 2017-08-06 08:00 | NUR ---
RN NOTES: RECEIVED PT ON BED, AWAKE, NONVERBAL, RESPONSIVE TO VERBAL AND TACTILE STIMULI. ON MECH VENT SETTINGS PRESCRIBED. SUCTIONED FOR AIRWAY CLEARANCE, NO SOB. ON TELEMONITOR, SR. PEG PATENT & INTACT, ON TUBE FEEDING NOVASOURCE 45 CC/HR INFUSING WELL NO RESIDUAL NOTED. JUANITA MIDLINE, FLUSHED WITH NS, PATENT. NOTED WITH B WRIST SOFT RESTRAINTS, RELEASED AND CHECKED FOR CIRCULATION. PER ELIAN HD NURSE HE WILL DIALYZE PT TODAY. KEPT COMFORTABLE, REPOSITIONED FOR COMFORT. BED KEPT LOW & IN LOCKED POS. CALL LIGHT PLACED W/IN REACH. WILL CONTINUE TO MONITOR .
[2017-08-06] MEDS: FLUDROCORTISONE 0.1 MG TABLET GT SCH (11:03)
[2017-08-06] MEDS: HYDROGEL DRESSING 90 GM TUBE TP SCH (11:03)
[2017-08-06] MEDS: MIDODRINE HCL (5MG) 5 MG TABLET GT SCH ×3 (11:05→16:48)
--- NOTE | 2017-08-06 12:10 | NUR ---
RN NOTES PT SEEN BY ELENA SHIN AT BEDSIDE, R HAND WOUND WAS EVALUATED, DRESSING CHANGE DONE.
[2017-08-06] MEDS ORDERED: Midodrine Hcl (5MG) GT (13:37)
--- NOTE | 2017-08-06 15:14 | NUR ---
DR. LEOLA NOLASCO HELD DISCHARGE FOR TMRW,NAVEED BROWNLEE NOTIFIED.
--- NOTE | 2017-08-06 15:57 | NUR ---
RT NOTE PT RECEIVED ON MECHANICAL VENT WITH NOTED SETTINGS, NO RESPIRATORY DISTRESS NOTED, AMBUBAG AT BEDSIDE, VENT PLUGGED ONTO RED OUTLET, DISCONNECT ALARM VERIFIED AND AUDIBLE SXD LARGE AMOUNT OF THICK PALE YELLOW SECRETIONS, PT STABLE AT THIS TIME. Addendum: 08/06/17 at 1558 by LUIS M RIGGS RT Amended: Links added.
--- NOTE | 2017-08-06 20:10 | NUR ---
RN INITIAL NOTES: RECEIVED PT ON BED, AWAKE, NONVERBAL, RESPONSIVE TO VERBAL AND TACTILE STIMULI. [facility] SETTINGS PRESCRIBED. SUCTIONED FOR AIRWAY CLEARANCE, NO SOB. ON TELEMONITOR, SR. PEG PATENT & INTACT, ON TUBE FEEDING NOVASOURCE 45 CC/HR INFUSING WELL NO RESIDUAL NOTED. JUANITA MIDLINE, FLUSHED WITH NS, PATENT. NOTED WITH B WRIST SOFT RESTRAINTS, RELEASED AND CHECKED FOR CIRCULATION. S/P DIALYSIS TODAY, WELL SIVA. KEPT COMFORTABLE, REPOSITIONED FOR COMFORT. BED KEPT LOW & IN LOCKED POS. CALL LIGHT PLACED W/IN REACH. WILL CONTINUE TO MONITOR .
[2017-08-06] MEDS: INSULIN DETEMIR 100 UNIT/ML CARTRIDGE SQ SCH (23:30)
[2017-08-07 00:50] VITALS: BP 118/71
[2017-08-07] MEDS: RENAL NOVASOURCE 1,000 ML BOTTLE GT PRN (03:36)
[2017-08-07 04:25] VITALS: BP 102/52
[2017-08-07] MEDS: BLOOD SUGAR DIAGNOSTIC 1 EACH STRIP IN SCH ×2 (05:11→11:57)
[2017-08-07] MEDS: LEVOTHYROXINE SODIUM 100 MCG TABLET GT SCH (05:11)
[2017-08-07] MEDS: INSULIN REGULAR, HUMAN 100 UNIT/ML 3 ML VIAL SQ PRN ×2 (05:21→11:59)
--- NOTE | 2017-08-07 06:15 | NUR ---
RN CLOSING NOTES: ENDORSED PT ON BED, AWAKE, NONVERBAL, RESPONSIVE TO VERBAL AND TACTILE STIMULI. ON MECH VENT SETTINGS PRESCRIBED. SUCTIONED FOR AIRWAY CLEARANCE, NO SOB. ON TELEMONITOR, SR. PEG PATENT & INTACT, ON TUBE FEEDING NOVASOURCE 45 CC/HR INFUSING WELL NO RESIDUAL NOTED. JUANITA MIDLINE, FLUSHED WITH NS, PATENT. NOTED WITH B WRIST SOFT RESTRAINTS, RELEASED AND CHECKED FOR CIRCULATION. KEPT COMFORTABLE, REPOSITIONED FOR COMFORT. BED KEPT LOW & IN LOCKED POS. CALL LIGHT PLACED W/IN REACH. WILL CONTINUE TO MONITOR .
[2017-08-07 06:40] LABS: CALCIUM, SERUM 10.1 mg/dL (8.5-10.1); CARBON DIOXIDE 28 mmol/L (21-32); CHLORIDE 101 mmol/L (98-107); CREATININE 3.9 mg/dL (0.6-1.3); GLUCOSE 260 mg/dL (74-106); SODIUM SERUM 140 mmol/L (136-145); UREA NITROGEN, BLOOD 68 mg/dL (7-18)
--- NOTE | 2017-08-07 07:18 | NUR ---
RN INITIAL NOTES: REC'D PT ON BED, NOT IN ANY DISTRESS. ON MECH VENT VIA TRACH, NO SOB. ON TELEMONITOR, SR. HAS PEG PATENT & INTACT, ON CONT TUBE FEEDING NOVASOURCE 45 CC/HR INFUSING WELL, NO RESIDUAL NOTED UPON CHECKING. HAS JUANITA MIDLINE, SL, FLUSHED, PATENT & INTACT W/ NO S/SX OF INFECTION/ INFILTRATION NOTED. HAS SUBCLAVIAN PERMACATH IN PLACE. HAS B WRIST SOFT RESTRAINTS ON, STILL NOTED PULLING OUT LINES. PROVIDED COMFORT & SAFETY MEASURES. BED KEPT LOW & IN LOCKED POS. CALL LIGHT PLACED W/IN REACH. WILL CONTINUE TO MONITOR & ATTEND PT NEEDS. PT IS FOR DC TODAY, PER CM CREW BOAT OPERATOR TIME 3PM.
[2017-08-07 08:00] VITALS: BP_SYST 135; BP_SYST 153; BP_DIAS 111; BP_DIAS 75
[2017-08-07] MEDS: FLUDROCORTISONE 0.1 MG TABLET GT SCH (08:39)
[2017-08-07] MEDS: MIDODRINE HCL (5MG) 5 MG TABLET GT SCH ×2 (08:39→13:00)
[2017-08-07] MEDS: HYDROGEL DRESSING 90 GM TUBE TP SCH (08:40)
[2017-08-07] MEDS: Z GUARD REMEDY 2 OZ OINT TP PRN (08:40)
[2017-08-07 12:00] VITALS: BP 111/72
[2017-08-07 13:00] VITALS: BP 111/72
--- NOTE | 2017-08-07 15:37 | NUR ---
DROP SHIPMENT CLERK NOTES: PT DC'D BACK TO [facility]. DC DOCUMENTS PROVIDED TO THE [facility] EMT. REPORT GIVEN TO BRENNAN HARRELL. TRACH AND GTUBE KEPT PATENT & INTACT. R SUBCLAVIAN PERMACATH KEPT IN PLACE W/ NO S/SX OF INFECTION NOTED. TELEMONITOR REMOVED. IV ACCESS REMOVED ON SHEILA, PRESSURE DRESSING APPLIED, NO S/SX OF INFECTION/BLEEDING NOTED. PT LEFT FACILITY IN STABLE CONDITION VIA GURNEY. NO CONCERNS IDENTIFIED AT THIS TIME. PT ACCOMPANIED BY COMPUTER REPAIR TECHNICIAN AND RT.
== END 2017-08-07 15:37 | DRG 291 ==
LOC: ER 18:11 → TELE-TD 21:59 → TELE1 23:55 → TELE-TD 07-30 02:28 → TELE1 07-31 11:20
PROVIDERS: ADMIT Internal Medicine; ATTEND Internal Medicine
PROC: 5A1D70Z Performance of Urinary Filtration, Intermittent, Less than 6 Hours Per Day (ICD-10-PCS; 2017-07-29)
PROC: 5A1955Z Respiratory Ventilation, Greater than 96 Consecutive Hours (ICD-10-PCS; principal; 2017-07-30)
PROC: 05H633Z Insertion of Infusion Device into Left Subclavian Vein, Percutaneous Approach (ICD-10-PCS; 2017-07-31)
PROC: B547ZZA Ultrasonography of Left Subclavian Vein, Guidance (ICD-10-PCS; 2017-07-31)
DX: I13.2 Hypertensive heart and chronic kidney disease with heart failure and with stage 5 chronic kidney disease, or end stage renal disease (principal); R53.2 Functional quadriplegia; I47.2 Ventricular tachycardia; Z99.11 Dependence on respirator [ventilator] status; J90 Pleural effusion, not elsewhere classified; J96.11 Chronic respiratory failure with hypoxia; Z93.0 Tracheostomy status; I95.9 Hypotension, unspecified; N18.6 End stage renal disease; I50.33 Acute on chronic diastolic (congestive) heart failure; D68.59 Other primary thrombophilia; E44.1 Mild protein-calorie malnutrition; E87.1 Hypo-osmolality and hyponatremia; N39.0 Urinary tract infection, site not specified; J98.11 Atelectasis; E11.22 Type 2 diabetes mellitus with diabetic chronic kidney disease; D53.9 Nutritional anemia, unspecified; B96.4 Proteus (mirabilis) (morganii) as the cause of diseases classified elsewhere; E03.9 Hypothyroidism, unspecified; Z85.828 Personal history of other malignant neoplasm of skin; Z93.1 Gastrostomy status; Z99.2 Dependence on renal dialysis; Z79.4 Long term (current) use of insulin; E88.09 Other disorders of plasma-protein metabolism, not elsewhere classified; E11.65 Type 2 diabetes mellitus with hyperglycemia; D63.8 Anemia in other chronic diseases classified elsewhere; K21.9 Gastro-esophageal reflux disease without esophagitis; E83.9 Disorder of mineral metabolism, unspecified; N20.0 Calculus of kidney; Z68.37 Body mass index [BMI] 37.0-37.9, adult; D72.829 Elevated white blood cell count, unspecified; B86 Scabies; Z86.14 Personal history of Methicillin resistant Staphylococcus aureus infection; F20.9 Schizophrenia, unspecified; R13.10 Dysphagia, unspecified; Z79.899 Other long term (current) drug therapy; K80.20 Calculus of gallbladder without cholecystitis without obstruction; G90.8 Other disorders of autonomic nervous system
CPT/HCPCS: 31720; 36415; 36569; 71010-TC; 76705-TC; 80048-TC; 80053-TC; 80061-TC; 80076-TC; 80150; 80202-TC; 81000-TC; 82533; 82962-TC; 83735-TC; 84100-TC; 84443-TC; 84484-TC; 85025-TC; 87040-TC; 87081-TC; 87086-TC; 87186-TC; 90935-TC; 93307-TC; 94002-TC; 94003-TC; 94760-TC; 94762-TC; A4216; A4217; A4606; A6248; A6253; A6402; A6403; A7526; J0278; J0282; J0696; J0885; J1200; J1815; J3370; J7050; J7060; P9047; Z7610